=== PATIENT | male | born 1970 | race Caucasian/White ===

== ENCOUNTER 2020-02-18 20:40 | Emergency (ER) | payer OTHER, SELFPAY ==
[2020-02-18 20:41] VITALS: BP 150/103; PULSE 115; RESP 18; TEMP 35.9; O2SAT 99; BMI 36.6
--- NOTE | 2020-02-18 21:07 | CT_ITS ---
STUDY: CT SOFT TISSUE NECK WITH CONTRAST REASON FOR EXAM: Male, 49 years old. PAIN/SWELLING OVER RIGHT MASTOID PROCESS INTO NECK. NO KNOWN INJURY. MASTOIDITIS?? RADIATION DOSAGE (If Supplied By Facility): CTDIvol = ( 17.28 ) mGy, DLP = ( 587.23 ) mGycm TECHNIQUE: The patient was scanned in a multi-detector CT scanner. High resolution transaxial imaging was performed following intravenous administration of IV 75mL Isovue-370. Sagittal and coronal images were reconstructed. Individualized dose optimization techniques were used for this CT. COMPARISON: None. FINDINGS: Mild edema is present in the right ear anterior and posterior periauricular/external auditory canal soft tissues likely due to inflammation or possible cellulitis. No abscess is present. No cortical erosion or bony destruction is seen to suggest osteomyelitis. No suspicious process is seen. The bilateral mastoid air cells are clear as well as the middle ear. Normal bilateral parotid glands. Normal bilateral straight line press setter spaces. Normal bilateral parapharyngeal spaces. Normal bilateral carotid spaces. Normal bilateral sublingual and submandibular glands and spaces. Normal visualized nasopharynx. Normal retropharyngeal space. Normal perivertebral space. Normal visualized bilateral faucial tonsils. The visualized tongue, tongue base and oropharynx are normal. The visualized cervical lymph nodes (levels I-) are within normal size limits, and maintain normal morphology. There is no demonstrated solid or cystic mass lesion. There is no abnormal contrast enhancement. Normal epiglottis, bilateral vallecula and hypopharynx. The pre-epiglottic and paraglottic adipose spaces are normal. Normal visualized bilateral piriform sinuses, aryepiglottic folds, vocal cords, and arytenoid-cricoid articulations. Normal subglottic trachea. Normal bilateral lobes of the thyroid gland. Normal visualized pulmonary apices. Normal visualized paranasal sinuses. There is multilevel degenerative changes of the cervical spine. CT/Soft Tissue Neck WITH Contrast IMPRESSION: Mild edema is present in the right ear anterior and posterior periauricular/external auditory canal soft tissues likely due to inflammation or possible cellulitis. No abscess is present. No cortical erosion or bony destruction is seen to suggest osteomyelitis. Electronically Signed: Nestor Cesar MD at 22:37 EST , Service support ,
[2020-02-18] MEDS: Ketorolac 30 MG/ML Syringe IV (21:27)
--- NOTE | 2020-02-18 21:31 | ED.VIS.GEN ---
History of Present Illness Chief Complaint: General Illness Informant: Patient Narrative: Patient is a 49-year-old male with a past medical history of hypertension who presents to the emergency department for posterior head pain. This initially started yesterday and progressively got worse into today. At baseline to 5 out of 10 but shoots up to an 8 or 9 occasionally. He denies ever having this happen before in the past. He states that it does feel like it started to go toward his ear. Denies any ringing in his ears or hearing loss. No ear discharge. He feels like it is swollen over the area of the pain. He feeling is starting to go down the back of his neck on the right side as well. He denies any chest pain or shortness of breath. No fevers or chills. No abdominal pain or nausea/vomiting. He denies being a diabetic. No vision changes. No significant headache. Past Medical History - Allergies and Home Meds Allergies/Adverse Reactions: Allergies No Known Allergies Allergy (Verified 02/18/20 20:44) Primary Care Physician: Marlon Carlson MD [Primary Care Provider] - Prior records reviewed: Yes Past Medical History: - - Hypertension Surgical History: no surgical history Smoking Status: Never smoker Review of Systems All systems negative except as indicated General: Denies: Chills, Fever, Sweats Eyes: Denies: Visual changes - bilaterally, Diplopia ENT: Denies: Rhinorrhea, Sore throat Cardiovascular: Denies: Chest pain, Palpitations Respiratory: Denies: Dyspnea, Cough, Dyspnea on exertion Gastrointestinal: Denies: Abdominal pain, Nausea, Vomiting, Diarrhea Genitourinary: Denies: Dysuria, Hematuria, Frequency Musculoskeletal: Reports: Neck pain. Denies: Back pain, Extremity Pain Skin: Denies: Rash, Wounds Neurological: Denies: Weakness, Numbness Physical Exam Vital Signs/Narrative: Vital Signs Temp Pulse Resp BP Pulse Ox 02/18/20 20:41 96.6 F L 115 H 18 150/103 H 99 Inital Vital Signs reviewed: Yes General: Well nourished, Well developed, No Acute Distress Head: Normocephalic, Atraumatic, - - There is tenderness over the right mastoid process. Some overlying bogginess. No obvious overlying cellulitis. No abscess appreciable. Eyes: Perrl, EOMI ENT: Moist mucous membranes, No rhinorrhea, TM's clear, - - Normal external ear canal. Neck: Supple, Nontender, No lymphadenopathy Cardiovascular: Regular rate, Regular rhythm, No murmurs Respiratory: No distress, CTA bilaterally, Chest nontender Abdomen: Soft, Nontender, Nondistended Back: Nontender, Normal Inspection Extremities: Nontender, No edema Skin: Normal color, No rash Neurological: Alert, Oriented x3, Cranial nerves II-XII grossly intact, Normal Strength, Normal Sensation Psychological: Normal affect, Normal Mood Diagnostic/Tx/Re-eval - Medical Decision Making Patient presents to the ED for pain over the right mastoid process. He does have significant tenderness on physical exam. No obvious evidence of infection on external skin. He has a normal external and anterior normal ear appearance. Nondiabetic. Will check basic lab work as well as CT scan of the soft tissues surrounding the area to make sure there is no mastoiditis or underlying infection. Even a dose of Toradol for symptomatic relief. Patient's lab work showed very minimal elevation of his white blood cell count. He does not meet SIRS criteria. He was mildly tachycardic upon arrival although his heart rate seemed to return to normal my examination. He does not appear in any acute distress. CT scans show some soft tissue inflammation around his area of tenderness. Will treat as a cellulitis. No evidence of bony abnormality. Will treat this with antibiotics. Is given first dose here in the emergency department and sent home with oral antibiotics. Strict return precautions were discussed with him including any worsening of his swelling, ear pain or hearing abnormalities, developing fever/chills. He understands and is agreeable to plan. He otherwise is to follow-up with his PCP. Discharged home in stable condition. All questions answered. ED Disposition - Plan for ED Patient: Disposition: Home or Assisted Living Diagnosis: Cellulitis of scalp Instructions: ED Cellulitis Prescriptions: Smz/Tmp Ds [Bactrim Ds] 1 tab PO BID 7 Days #14 tab Prescription Printed Cephalexin [Keflex] 500 mg PO Q6 7 Days #28 cap Prescription Printed Referrals: Marlon Carlson MD [Primary Care Provider] - 3-5 Days
[2020-02-18 21:39] LABS: Absolute Lymphocyte Count 2.54 X10^3/uL (0.83-4.51); Absolute Neutrophil Count 7.8 X10^3/uL (2.0-7.7); Basophil# 0.06 X10^3/uL; Basophil% 0.5 % (0-1); Eosinophil# 0.15 X10^3/uL; Eosinophils% 1.3 % (0-5); Hematocrit 47.6 % (40-54); Hemoglobin 16.1 g/dL (13.0-16.5); Lymphocyte # 2.54 X10^3/ul (4.0); Lymphocyte % 21.9 % (19-41); Mean Corp Hgb Conc 33.8 g/dL (32-36); Mean Corpuscular Hgb 30.4 pg (27.0-32.0); Mean Platelet Vol. 8.9 fl (6.2-12.0); Monocyte% 8.6 % (0-10); NRBC Flagged by Analyzer 0 % (0-5); Neutrophil # 7.81 X10^3/uL (2.7-7.7); Neutrophil % 67.4 % (47-70); Platelet Count 412 K/mm3 (150-450); RBC Distribution Width CV 12.6 % (11.6-14.6); RBC Distribution Width SD 41.5 fl (35.1-43.9); Red Blood Count 5.29 M/mm3 (4.6-6.2); White Blood Count 11.6 K/mm3 (4.4-11.0)
[2020-02-18 21:51] LABS: Anion Gap 3 (5-15); BUN 18 mg/dL (7-18); BUN/Creat Ratio 16.7 RATIO (10-20); Calcium,Total 8.6 mg/dL (8.5-10.1); Chloride 105 mmol/L (98-107); Creatinine, Serum 1.08 mg/dL (0.70-1.30); EST Glomerular Filtration Rate 76 mL/min (>60); Est Glom Filt Rate - Afr Amer 93 mL/min (>60); Estimated Creatinine Clearance 86.18 ml/min; Glucose 110 mg/dL (74-106); Potassium 3.8 mmol/L (3.5-5.1); Sodium Level 139 mmol/L (136-145)
[2020-02-18] MEDS: Cephalexin 250 MG Capsule 500 MG PO (22:44)
[2020-02-18] MEDS: Smz/Tmp Ds Tablet 1 TABLET PO (22:45)
== END 2020-02-18 23:00 | disposition home or self-care (01) ==
PROVIDERS: Emergency Provider Emergency Medicine; PCP Family Medicine
DX: L03.811 Cellulitis of head [any part, except face] (principal); I10 Essential (primary) hypertension
CPT/HCPCS: 70491; 80048; 85025; 96374; 99284; Q9967; A4216

== ENCOUNTER 2020-06-20 15:00 | Emergency (ER) | payer OTHER, SELFPAY ==
[2020-06-20 15:01] VITALS: BP 132/104; PULSE 112; RESP 16; TEMP 36.7; O2SAT 100; BMI 36.6
--- NOTE | 2020-06-20 15:26 | EKG12_ITS ---
Test Reason : GENERAL Blood Pressure : / mmHG Vent. Rate : 104 BPM Atrial Rate : 104 BPM P-R Int : 150 ms QRS Dur : 096 ms QT Int : 332 ms P-R-T Axes : 028 -15 012 degrees QTc Int : 436 ms Sinus tachycardia Otherwise normal ECG Confirmed by AZAR VÁSQUEZ, TOBY ([id number]), magazine editor NILSA DESIR ([id number]) on 06/24/2020 8:30:59 AM Referred By: Confirmed By:TOBY ASKEW MD
--- NOTE | 2020-06-20 15:29 | ED.DCSUM_ITS ---
History of Present Illness Chief Complaint: General Illness Informant: Patient Narrative: 49-year-old male presenting with fatigue mild nausea metallic taste in mouth and chest tightness. He tells me that 1 week ago he used a Ortho ground clear spray. He did not ingest any of that that he is aware of. He denied any skin irritation or eye symptoms. He states that shortly after using it he noticed that he had a metallic taste in his mouth. Since then he developed his other symptoms. He denies any exertional components. He was down in [place] [employer] today on his way back decided it was time to come and be seen because he just does not feel right. He denies any fevers. He notes he is tested for Covid twice weekly for his job. These have all been negative. He denies any URI symptoms. Normal bowel movement yesterday but states that towards the end of the day his stools were looser than normal. Past Medical History - Allergies and Home Meds Allergies/Adverse Reactions: Allergies No Known Allergies Allergy (Verified 06/20/20 15:01) Primary Care Physician: Marlon Carlson MD [Primary Care Provider] - Past Medical History: None Surgical History: no surgical history Smoking Status: Never smoker Drugs: None Review of Systems General: Reports: Malaise. Denies: Chills, Fever, Sweats Eyes: Denies: Visual changes - bilaterally, Diplopia ENT: Reports: - - Metallic taste in mouth. Denies: Rhinorrhea, Sore throat Cardiovascular: Reports: Chest pain - Chest tightness, Palpitations Respiratory: Denies: Dyspnea, Cough, Dyspnea on exertion Gastrointestinal: Reports: Nausea. Denies: Abdominal pain, Vomiting, Diarrhea, Melena, Hematochezia Genitourinary: Denies: Dysuria, Hematuria, Frequency Musculoskeletal: Denies: Back pain, Extremity Pain Skin: Denies: Rash, Wounds Neurological: Denies: Headache, Weakness, Numbness Physical Exam Vital Signs/Narrative: Vital Signs Temp Pulse Resp BP Pulse Ox 06/20/20 15:01 98.0 F 112 H 16 132/104 H 100 Inital Vital Signs reviewed: Yes General: Well nourished, Well developed, No Acute Distress Head: Normocephalic, Atraumatic Eyes: Perrl, EOMI ENT: Moist mucous membranes, No rhinorrhea Neck: Supple, Nontender Cardiovascular: Regular rate, No murmurs, Tachycardia Respiratory: No distress, CTA bilaterally, Chest nontender Abdomen: Soft, Nontender, Nondistended, Normal bowel sounds Back: Nontender, Normal Inspection Extremities: Nontender, No edema Skin: Normal color, No rash Neurological: Alert, Oriented x3, Cranial nerves II-XII grossly intact, Normal Strength, Normal Sensation Psychological: Normal affect, Normal Mood Diagnostic/Tx/Re-eval Clinical Impression(s) from Imaging Studies Chest X-Ray 06/20/20 15:36 IMPRESSION: No acute radiographic abnormalities. Electronically Signed: Abilio Ortiz MD at 16:14 EDT Tel , Service support , Laboratory Last Values WBC 10.0 K/mm3 (4.4-11.0) 06/20/20 15:30 RBC 5.90 M/mm3 (4.6-6.2) 06/20/20 15:30 Hgb 17.4 g/dL (13.0-16.5) H 06/20/20 15:30 Hct 52.9 % (40-54) 06/20/20 15:30 MCV 89.7 fL (80-94) 06/20/20 15:30 MCH 29.5 pg (27.0-32.0) 06/20/20 15:30 MCHC 32.9 g/dL (32-36) 06/20/20 15:30 RDW Std Deviation 41.9 fl (35.1-43.9) 06/20/20 15:30 RDW Coeff of Danilo 12.7 % (11.6-14.6) 06/20/20 15:30 Plt Count 449 K/mm3 (150-450) 06/20/20 15:30 MPV 8.9 fl (6.2-12.0) 06/20/20 15:30 Immature Gran % (Auto) 0.200 % (0.0-0.9) 06/20/20 15:30 Neut % (Auto) 73.9 % (47-70) H 06/20/20 15:30 Lymph % (Auto) 16.4 % (19-41) L 06/20/20 15:30 Callahan % (Auto) 8.4 % (0-10) 06/20/20 15:30 Eos % (Auto) 0.6 % (0-5) 06/20/20 15:30 Baso % (Auto) 0.5 % (0-1) 06/20/20 15:30 Absolute Neuts (auto) 7.4 X10^3/uL (2.0-7.7) 06/20/20 15:30 Absolute Lymphs (auto) 1.63 X10^3/uL (0.83-4.51) 06/20/20 15:30 Nucleated RBC % 0 % (0-5) 06/20/20 15:30 D-Dimer Quant (PE/DVT) 0.34 FEU/ug/m (0.27-0.49) 06/20/20 15:30 Sodium 139 mmol/L (136-145) 06/20/20 15:30 Potassium 3.2 mmol/L (3.5-5.1) L 06/20/20 15:30 Chloride 103 mmol/L (98-107) 06/20/20 15:30 Carbon Dioxide 31.0 mmol/L (21.0-32.0) 06/20/20 15:30 Anion Gap 5 (5-15) 06/20/20 15:30 BUN 13 mg/dL (7-18) 06/20/20 15:30 Creatinine 1.12 mg/dL (0.70-1.30) 06/20/20 15:30 Estim Creat Clear Calc 83.11 ml/min 06/20/20 15:30 Est GFR (MDRD) Af Amer 89 mL/min (>60) 06/20/20 15:30 Est GFR (MDRD) Non-Af 73 mL/min (>60) 06/20/20 15:30 BUN/Creatinine Ratio 11.6 RATIO (10-20) 06/20/20 15:30 Glucose 87 mg/dL (74-106) 06/20/20 15:30 Calcium 9.1 mg/dL (8.5-10.1) 06/20/20 15:30 Magnesium 2.2 mg/dL (1.6-2.6) 06/20/20 15:30 Total Bilirubin 0.90 mg/dL (0.20-1.00) 06/20/20 15:30 AST 15 U/L (15-37) 06/20/20 15:30 ALT 37 U/L (16-61) 06/20/20 15:30 Alkaline Phosphatase 134 U/L (45-117) H 06/20/20 15:30 Troponin I < 0.015 ng/mL (<0.045) 06/20/20 15:30 Total Protein 8.0 g/dL (6.4-8.2) 06/20/20 15:30 Albumin 3.9 g/dL (3.2-5.0) 06/20/20 15:30 Globulin 4.1 g/dL (2.2-4.2) 06/20/20 15:30 Albumin/Globulin Ratio 1.0 RATIO (0.9-2.4) 06/20/20 15:30 Lipase 99 U/L (73-393) 06/20/20 15:30 - EKG Initial EKG Interpretation: Sinus Tachycardia - EKG demonstrates a sinus tachycardia at a rate of 104. No concerning features of ACS or ectopy noted - Medical Decision Making EKG shows sinus tachycardia has been right around 100 on the monitor. Troponin D-dimer negative. Potassium 3.2. Hemoglobin slightly elevated 17 which I suspect is due to a mild degree of dehydration from mowing the lawn today. I do not see anything significantly concerning on his exam or his labs. I do not suspect poisoning from the materials he uses it was over a week ago and according to the safety sheet online is not on organophosphate chemicals do not have any significant systemic effects. To rest hydrate increase potassium in his diet and follow-up with his doctor next week if symptoms have not resolved ED Disposition - Plan for ED Patient: Disposition: Home or Assisted Living Diagnosis: Dysgeusia, Tachycardia Referrals: Marlon Carlson MD [Primary Care Provider] - 3-5 Days if not improving
--- NOTE | 2020-06-20 15:36 | RAD_ITS ---
INDICATION: chest pain EXAMINATION/TECHNIQUE: X-RAY - XR Chest 1 View COMPARISON: None. FINDINGS: The lungs are clear. The cardiomediastinal silhouette is unremarkable. No pleural effusion or pneumothorax. No acute osseous abnormalities. RAD/Chest 1 View (Portable) IMPRESSION: No acute radiographic abnormalities. Electronically Signed: Abilio Ortiz MD at 16:14 EDT Tel , Service support ,
[2020-06-20 15:47] LABS: Absolute Lymphocyte Count 1.63 X10^3/uL (0.83-4.51); Absolute Neutrophil Count 7.4 X10^3/uL (2.0-7.7); Basophil# 0.05 X10^3/uL; Basophil% 0.5 % (0-1); Eosinophil# 0.06 X10^3/uL; Eosinophils% 0.6 % (0-5); Hematocrit 52.9 % (40-54); Hemoglobin 17.4 g/dL (13.0-16.5); Lymphocyte # 1.63 X10^3/ul (0.83-4.51); Lymphocyte % 16.4 % (19-41); Mean Corp Hgb Conc 32.9 g/dL (32-36); Mean Corpuscular Hgb 29.5 pg (27.0-32.0); Mean Corpuscular Volume 89.7 fL (80-94); Mean Platelet Vol. 8.9 fl (6.2-12.0); Monocyte# 0.84 X10^3/uL; Monocyte% 8.4 % (0-10); NRBC Flagged by Analyzer 0 % (0-5); Neutrophil # 7.35 X10^3/uL (2.7-7.7); Neutrophil % 73.9 % (47-70); Platelet Count 449 K/mm3 (150-450); RBC Distribution Width CV 12.7 % (11.6-14.6); RBC Distribution Width SD 41.9 fl (35.1-43.9)
[2020-06-20 16:01] LABS: D-Dimer Quantitative (DVT/PE) 0.34 FEU/ug/m (0.27-0.49)
[2020-06-20 16:07] LABS: AST(SGOT) 15 U/L (15-37); Alanine Aminotransfer ALT/SGPT 37 U/L (16-61); Albumin, Serum 3.9 g/dL (3.2-5.0); Alkaline Phosphatase 134 U/L (45-117); Anion Gap 5 (5-15); BUN 13 mg/dL (7-18); BUN/Creat Ratio 11.6 RATIO (10-20); Calcium,Total 9.1 mg/dL (8.5-10.1); Chloride 103 mmol/L (98-107); Creatinine, Serum 1.12 mg/dL (0.70-1.30); EST Glomerular Filtration Rate 73 mL/min (>60); Est Glom Filt Rate - Afr Amer 89 mL/min (>60); Estimated Creatinine Clearance 83.11 ml/min; Globulin 4.1 g/dL (2.2-4.2); Glucose 87 mg/dL (74-106); Lipase 99 U/L (73-393); Magnesium 2.2 mg/dL (1.6-2.6); Potassium 3.2 mmol/L (3.5-5.1); Sodium Level 139 mmol/L (136-145)
[2020-06-20 16:29] VITALS: BP 128/95; PULSE 104; RESP 18; O2SAT 98
== END 2020-06-20 16:30 | disposition home or self-care (01) ==
PROVIDERS: Emergency Provider Emergency Medicine; PCP Family Medicine
DX: R43.2 Parageusia (principal); R00.0 Tachycardia, unspecified; R11.0 Nausea; R07.9 Chest pain, unspecified
CPT/HCPCS: 71045; 80053; 83690; 83735; 84484; 85025; 85379; 87426; 93005; 99283; A4216

== ENCOUNTER → 2020-12-14 | Outpatient (CLI) | payer OTHER, SELFPAY | END | disposition home or self-care (01) | LOC: LABSPEC 16:19 | PROVIDERS: PCP Family Medicine; Visit Provider Family Medicine | DX: Z03.818 Encounter for observation for suspected exposure to other biological agents ruled out (principal) | CPT/HCPCS: 87635; U0005; U0003 ==

== ENCOUNTER 2023-03-06 19:04 | Emergency (ER) | payer OTHER, SELFPAY ==
[2023-03-06 19:05] VITALS: BP 157/113; PULSE 147; RESP 18; TEMP 36.4; O2SAT 97; BMI 38.3
--- NOTE | 2023-03-06 19:08 | EKG12_ITS ---
Test Reason : CP Blood Pressure : / mmHG Vent. Rate : 136 BPM Atrial Rate : 136 BPM P-R Int : 150 ms QRS Dur : 086 ms QT Int : 274 ms P-R-T Axes : 025 -58 057 degrees QTc Int : 412 ms Sinus tachycardia Left anterior fascicular block Cannot rule out Inferior infarct (masked by fascicular block?) , age undetermined Abnormal ECG Confirmed by OLINDA VÁSQUEZ, ODIN ([id number]), food expeditor NILSA DESIR ([id number]) on 03/07/2023 10:09:47 AM Referred By: Confirmed By:ODIN PRAKASH MD
--- NOTE | 2023-03-06 19:20 | RAD_ITS ---
STUDY: X-RAY CHEST REASON FOR EXAM: Male, 52 years old. chest pain TECHNIQUE: Single AP portable view of the chest. COMPARISON: 06/20/2020. FINDINGS: The lungs are clear and expanded. There is no demonstrated pleural abnormality. Normal size heart. Normal mediastinum and christiana. Normal visualized pulmonary arteries. There is atherosclerotic calcification of the aortic arch with tortuosity. There are diffuse degenerative changes of the visualized thoracic spine. Normal visualized ribs, clavicles, and shoulders. There is no demonstrated abnormality of the visualized soft tissue structures of the upper abdomen. RAD/Chest 1 View (Portable) IMPRESSION: No acute cardiopulmonary disease, stable study in the interval. Electronically Signed: Hanna Guerrero MD at 19:36 EST ,
[2023-03-06 19:24] LABS: Absolute Lymphocyte Count 1.36 X10^3/uL (0.83-4.51); Absolute Neutrophil Count 4.9 X10^3/uL (2.0-7.7); Basophil# 0.08 X10^3/uL; Basophil% 1.1 % (0-1); Eosinophil# 0.07 X10^3/uL; Lymphocyte # 1.36 X10^3/ul (0.83-4.51); Lymphocyte % 18.5 % (19-41); Mean Corp Hgb Conc 33.3 g/dL (32-36); Mean Corpuscular Volume 87.1 fL (80-94); Mean Platelet Vol. 8.7 fl (6.2-12.0); Monocyte% 12.2 % (0-10); NRBC Flagged by Analyzer 0 % (0-5); Neutrophil # 4.94 X10^3/uL (2.7-7.7); Neutrophil % 67.1 % (47-70); Platelet Count 325 K/mm3 (150-450); RBC Distribution Width SD 41.1 fl (35.1-43.9); Red Blood Count 6.41 M/mm3 (4.6-6.2); White Blood Count 7.4 K/mm3 (4.4-11.0)
[2023-03-06 19:42] LABS: Anion Gap 4 (5-15); BUN 17 mg/dL (7-18); BUN/Creat Ratio 13.1 RATIO (10-20); Calcium,Total 10.2 mg/dL (8.5-10.1); Chloride 100 mmol/L (98-107); EST Glomerular Filtration Rate 61 mL/min (>60); Est Glom Filt Rate - Afr Amer 74 mL/min (>60); Estimated Creatinine Clearance 69.19 ml/min; Glucose 121 mg/dL (74-106); Potassium 3.9 mmol/L (3.5-5.1); Sodium Level 135 mmol/L (136-145); Troponin-I HS (w/2H Reflex) 4 pg/mL (3.0-78.0)
[2023-03-06 19:51] LABS: Hematocrit 55.8 % (40-54)
[2023-03-06 19:53] LABS: Differential Indicated SCAN CRITERIA MET; Hemoglobin 18.6 g/dL (13.0-16.5)
[2023-03-06 20:05] VITALS: TEMP 38.4
[2023-03-06 20:05] LABS: Anisocytosis RARE; Macrocytosis RARE; Platelet Estimate ADEQUATE (ADEQ); Red Cell Morphology N CHROM NORMAL (NORM C&C)
--- OUTSIDE RECORDS SUMMARY | 2023-03-06 20:05 | XMS RPT_ITS | CCD ---
Author Name Unknown Address [address] [place] [address] Organization [facility] Care Team Providers Care Educational Technology Specialist Name Role Phone Lukasz Vickers MD Primary Care Provider LUKASZ VICKERS Primary Care Unavailable DHARMESH RICHARDS Attending Unavailable LUKASZ VICKERS Primary Care Unavailable LUKASZ VICKERS Primary Care Unavailable LUKASZ VICKERS Primary Care Unavailable DHARMESH RICHARDS Attending Unavailable BRAULIO BROOKE Attending Unavailable LUKASZ VICKERS Primary Care Unavailable BRAULIO BROOKE Attending Unavailable LUKASZ VICKERS Primary Care Unavailable DHARMESH RICHARDS Referring Unavailable Allergies Allergy Classification Reported Allergen(s) Allergy Type Date of Onset Reaction(s) Facility (12 sources) Acetaminophen / HYDROcodone; Translations: [HYDROCODONE-ACETA MINOPHEN] Drug Allergy 03-31-2011 GI Upset [facility] Medications Current Medications Medication Drug Class(es) Dates Sig (Normalized) Sig (Original) amoxicillin 875 mg / clavulanate 125 mg oral tablet (2 sources) Penicillin-class Antibacterial Start: 05-15-2022 End: 05-25-2022 take 1 tablet by mouth twice daily amoxicillin-clav ulanic acid (AUGMENTIN) 875-125 mg per tablet Take 1 tablet by mouth twice daily for 10 days. 20 tablet 0 05/15/2022 05/25/2022 Active Completed/Discontinued Medications Medication Drug Class(es) Dates Sig (Normalized) Sig (Original) meloxicam 15 mg oral tablet (2 sources) Nonsteroidal Anti-inflammatory Drug Start: 09-24-2021 End: 11-26-2021 take 1 tablet by mouth once daily at mealtime meloxicam (MOBIC) 15 mg tablet Indications: Cervical radiculopathy , Bilateral hip pain Take 1 tablet by mouth once daily. With food. 30 tablet 3 09/24/2021 11/26/2021 Discontinued (Course of therapy completed) Problems Active Problems Problem Classification Problem Date Documented Date Episodic/Chronic Disorders of lipid metabolism (12 sources) Hyperlipidemia; Translations: [Hyperlipidemia, unspecified] Onset: 06-30-2014 06-30-2014 Chronic Essential hypertension (16 sources) Essential hypertension; Translations: [Essential (primary) hypertension] Onset: 06-23-2014 Chronic Immunizations and screening for infectious disease (4 sources) Patient encounter status; Translations: [Encounter for immunization] Episodic Other male genital disorders (6 sources) Secondary erectile dysfunction; Translations: [Male erectile dysfunction, unspecified] Chronic Other male genital disorders (1 source) Male erectile dysfunction, unspecified; Translations: [ED (erectile dysfunction) of organic origin] Onset: 05-23-2022 Chronic Other non-traumatic joint disorders (2 sources) Hip pain; Translations: [Pain in right hip] Episodic Other non-traumatic joint disorders (1 source) Bilateral chronic pain of upper limbs; Translations: [Pain in right shoulder] Episodic Other nutritional; endocrine; and metabolic disorders (1 source) Obese class II; Translations: [Obesity, unspecified] Chronic Other nutritional; endocrine; and metabolic disorders (11 sources) Constitutional obesity; Translations: [Other obesity] Onset: 03-23-2015 03-23-2015 Chronic Other upper respiratory infections (1 source) Chronic sinusitis; Translations: [Chronic sinusitis, unspecified] Chronic Other upper respiratory infections (2 sources) Acute maxillary sinusitis; Translations: [Acute maxillary sinusitis, unspecified] Episodic Otitis media and related conditions (1 source) Dysfunction of bilateral eustachian tubes; Translations: [Other specified disorders of Eustachian tube, bilateral] Episodic Spondylosis; intervertebral disc disorders; other back problems (2 sources) Cervical radiculopathy; Translations: [Radiculopathy, cervical region] Episodic Past or Other Problems Problem Classification Problem Date Documented Da te Episodic/Chronic Calculus of urinary tract (11 sources) Kidney stone; Translations: [Calculus of kidney] Onset: 03-31-2011 03-31-2011 Episodic Diabetes mellitus without complication (12 sources) Increased glucose level; Translations: [Other abnormal glucose] Onset: 09-24-2021 Episodic Results Test Name Value Interpretation Reference Range Facil ity Vital Signs Date Time Vital Sign Value Performing Clinician [place] 06-07-2022 08:05-0400 Body weight 126.1 kg Braulio Brooke PA-C Work Phone: [facility] 05-31-2022 09:17-0400 Body height 180.3 cm Braulio Brooke PA-C Work Phone: [facility] 05-31-2022 09:17-0400 Body temperature 98.01 [degF] Braulio Brooke PA-C Work Phone: [facility] 05-31-2022 09:17-0400 Body weight 126.1 kg Braulio Brooke PA-C Work Phone: [facility] 05-31-2022 09:17-0400 Diastolic blood pressure 88 mm[Hg] Braulio Brooke PA-C Work Phone: [facility] 05-31-2022 09:17-0400 Heart rate 100 /min Braulio Brooke PA-C Work Phone: [facility] 05-31-2022 09:17-0400 Respiratory rate 12 /min Braulio Brooke PA-C Work Phone: [facility] 05-31-2022 09:17-0400 SaO2% (BldA) [Mass fraction] 100 % Braulio Brooke PA-C Work Phone: [facility] 05-31-2022 09:17-0400 Systolic blood pressure 140 mm[Hg] Braulio Brooke PA-C Work Phone: [facility] 05-23-2022 11:30-0400 Diastolic blood pressure 78 mm[Hg] Dharmesh Adal SUPERVISOR DENTAL LABORATORY.COMPUTER PROGRAMMING PROFESSOR Work Phone: [facility] 05-23-2022 11:30-0400 Systolic blood pressure 118 mm[Hg] Dharmesh Adal SUPERVISOR DENTAL LABORATORY.COMPUTER PROGRAMMING PROFESSOR Work Phone: [facility] 05-23-2022 11:09-0400 Body temperature 97.81 [degF] Dharmesh Adal SUPERVISOR DENTAL LABORATORY.COMPUTER PROGRAMMING PROFESSOR Work Phone: [facility] 05-23-2022 11:09-0400 Body weight 124.19 kg Dharmesh Adal SUPERVISOR DENTAL LABORATORY.COMPUTER PROGRAMMING PROFESSOR Work Phone: [facility] 05-23-2022 11:09-0400 Heart rate 96 /min Dharmesh Adal SUPERVISOR DENTAL LABORATORY.COMPUTER PROGRAMMING PROFESSOR Work Phone: [facility] 05-23-2022 11:09-0400 Respiratory rate 16 /min Dharmesh Adal SUPERVISOR DENTAL LABORATORY.COMPUTER PROGRAMMING PROFESSOR Work Phone: [facility] 05-15-2022 08:31-0400 Body temperature 97.81 [degF] Fco Pendlebury SUPERVISOR DENTAL LABORATORY.COMPUTER PROGRAMMING PROFESSOR Work Phone: [facility] 05-15-2022 08:31-0400 Body weight 126.64 kg Fco Toney SUPERVISOR DENTAL LABORATORY.COMPUTER PROGRAMMING PROFESSOR Work Phone: [facility] 05-15-2022 08:31-0400 Diastolic blood pressure 68 mm[Hg] Fco Pendlebury SUPERVISOR DENTAL LABORATORY.COMPUTER PROGRAMMING PROFESSOR Work Phone: [facility] 05-15-2022 08:31-0400 Heart rate 96 /min Fco Pendlebury SUPERVISOR DENTAL LABORATORY.COMPUTER PROGRAMMING PROFESSOR Work Phone: [facility] 05-15-2022 08:31-0400 Respiratory rate 18 /min Fco Pendlejacobo SUPERVISOR DENTAL LABORATORY.COMPUTER PROGRAMMING PROFESSOR Work Phone: [facility] 05-15-2022 08:31-0400 SaO2% (BldA) [Mass fraction] 97 % Fco Pendlejacobo SUPERVISOR DENTAL LABORATORY.COMPUTER PROGRAMMING PROFESSOR Work Phone: [facility] 05-15-2022 08:31-0400 Systolic blood pressure 122 mm[Hg] Fco Pendlejacobo SUPERVISOR DENTAL LABORATORY.COMPUTER PROGRAMMING PROFESSOR Work Phone: [facility] 03-18-2022 11:17-0500 Body temperature 98.4 [degF] Moustapha Henry SUPERVISOR DENTAL LABORATORY.COMPUTER PROGRAMMING PROFESSOR Work Phone: [facility] 03-18-2022 11:17-0500 Body weight 123.56 kg Moustapha Henry SUPERVISOR DENTAL LABORATORY.COMPUTER PROGRAMMING PROFESSOR Work Phone: [facility] 03-18-2022 11:17-0500 Diastolic blood pressure 80 mm[Hg] Moustapha Henry SUPERVISOR DENTAL LABORATORY.COMPUTER PROGRAMMING PROFESSOR Work Phone: [facility] 03-18-2022 11:17-0500 Heart rate 127 /min Moustapha Henry SUPERVISOR DENTAL LABORATORY.COMPUTER PROGRAMMING PROFESSOR Work Phone: [facility] 03-18-2022 11:17-0500 Respiratory rate 18 /min Moustapha Henry SUPERVISOR DENTAL LABORATORY.COMPUTER PROGRAMMING PROFESSOR Work Phone: [facility] 03-18-2022 11:17-0500 SaO2% (BldA) [Mass fraction] 98 % Moustapha Henry SUPERVISOR DENTAL LABORATORY.COMPUTER PROGRAMMING PROFESSOR Work Phone: [facility] 03-18-2022 11:17-0500 Systolic blood pressure 124 mm[Hg] Moustapha Henry SUPERVISOR DENTAL LABORATORY.COMPUTER PROGRAMMING PROFESSOR Work Phone: [facility] 11-26-2021 12:13-0400 Diastolic blood pressure 76 mm[Hg] Dharmesh Adal SUPERVISOR DENTAL LABORATORY.COMPUTER PROGRAMMING PROFESSOR Work Phone: [facility] 11-26-2021 12:13-0400 Systolic blood pressure 110 mm[Hg] Dharmehs Adal SUPERVISOR DENTAL LABORATORY.COMPUTER PROGRAMMING PROFESSOR Work Phone: [facility] 11-26-2021 12:03-0400 Body temperature 97.81 [degF] Dharmesh Adal SUPERVISOR DENTAL LABORATORY.COMPUTER PROGRAMMING PROFESSOR Work Phone: [facility] 11-26-2021 12:03-0400 Body weight 119.11 kg Dharmesh Adal SUPERVISOR DENTAL LABORATORY.COMPUTER PROGRAMMING PROFESSOR Work Phone: [facility] 11-26-2021 12:03-0400 Heart rate 84 /min Dharmesh Adal SUPERVISOR DENTAL LABORATORY.COMPUTER PROGRAMMING PROFESSOR Work Phone: [facility] 11-26-2021 12:03-0400 Respiratory rate 16 /min Dharmesh Adal SUPERVISOR DENTAL LABORATORY.COMPUTER PROGRAMMING PROFESSOR Work Phone: [facility] 09-24-2021 12:13-0400 Body height 180.3 cm Dharmesh Richards SUPERVISOR DENTAL LABORATORY.COMPUTER PROGRAMMING PROFESSOR Work Phone: [facility] 09-24-2021 12:13-0400 Body temperature 97.59 [degF] Dharmesh Richards APRN.CNP Work Phone: [facility] 09-24-2021 12:13-0400 Body weight 119.3 kg Dharmesh Richards APRN.CNP Work Phone: [facility] 09-24-2021 12:13-0400 Diastolic blood pressure 88 mm[Hg] Dharmesh Richards APRN.COMPUTER PROGRAMMING PROFESSOR Work Phone: [facility] 09-24-2021 12:13-0400 Heart rate 86 /min Dharmesh Richards APRN.COMPUTER PROGRAMMING PROFESSOR Work Phone: [facility] 09-24-2021 12:13-0400 Respiratory rate 16 /min Dharmesh Richards APRN.CNP Work Phone: [facility] 09-24-2021 12:13-0400 Systolic blood pressure 136 mm[Hg] Dharmesh Richards APRN.COMPUTER PROGRAMMING PROFESSOR Work Phone: [facility] Encounters Encounter Date Encounter Type Care Provider Facility Start: 03-03-2023 End: 03-03-2023 ambulatory [facility] Facility:[facility] Start: 03-03-2023 Encounter for genera l adult medical examination without abnormal findings DHARMESH RICHARDS [facility] Start: 11-19-2022 Refill Dharmesh TO RN.DANITA Work Phone: [facility] Procedures Date Procedure Procedure Detail Performing Clinician Start: 09-24-2021 Adult depression screening assessment Dharmesh Richards APRN.CNP Work Phone: Start: 06-30-2018 Lipid 1996 panel - S dia or Plasma Dharmesh Richards APRN.CNP Work Phone: Plan of Treatment Date Care Activity Detail Author Start: 02-26-2025 Urine microalbumin profile [facility] Start: 10-25-2024 DIABETES SCREEN DIABETES SCREEN [facility] Start: 10-25-2024 Diabetes Screening Diabetes Screenin g [facility] Start: 07-01-2023 Lipid 1996 panel - S dia or Plasma Lipid Screening [facility] Start: 07-01-2023 LIPID SCREEN LIPID SCREEN [facility] Start: 05-24-2023 ANNUAL PCP TEAM MATERIALS INTERN SHALONDA DISEASE VISIT ANNUAL PCP TEAM CHRONIC DISEASE VISIT [facility] Start: 05-24-2023 BP CONTROLLED (<130/80) BP CONTROLLE D (<130/80) [facility] Start: 05-16-2023 BP CONTROLLED (<130/80) BP CONTROLLE D (<130/80) [facility] Start: 11-26-2022 ANNUAL PCP TEAM MATERIALS INTERN SHALONDA DISEASE VISIT ANNUAL PCP TEAM CHRONIC DISEASE VISIT [facility] Start: 11-26-2022 BP CONTROLLED (<130/80) BP CONTROLLE D (<130/80) [facility] Start: 11-26-2022 COLORECTAL CANCER SCREENING COLORECTAL CANCER SCREENING [facility] Start: 11-26-2022 FECAL OCCULT BLOOD FECAL OCCULT BLOO D [facility] Start: 10-28-2022 Influenza vaccination [facility] Start: 09-24-2022 Adult depression scr eening assessment DEPRESSION SCREENING [facility] Start: 09-24-2022 ANNUAL PCP TEAM MATERIALS INTERN SHALONDA DISEASE VISIT ANNUAL PCP TEAM CHRONIC DISEASE VISIT [facility] Start: 09-24-2022 BP CONTROLLED (<130/80) BP CONTROLLE D (<130/80) [facility] Start: 09-24-2022 COVID-19 VACCINE (#1) COVID-19 VACCI NE (#1) [facility] Immunizations Immunization Date Immunization Notes Care Provider Fa radha 11-26-2021 zoster vaccine recombinant Dharmesh Adal SUPERVISOR DENTAL LABORATORY.COMPUTER PROGRAMMING PROFESSOR Work Phone: [facility] 09-24-2021 zoster vaccine recombinant Dharmesh Adal SUPERVISOR DENTAL LABORATORY.COMPUTER PROGRAMMING PROFESSOR Work Phone: [facility] 01-10-2018 influenza virus vacc ine, unspecified formulation Dharmesh Adal SUPERVISOR DENTAL LABORATORY.COMPUTER PROGRAMMING PROFESSOR Work Phone: [facility] 02-26-2015 tetanus toxoid, redu manas diphtheria toxoid, and acellular pertussis vaccine, adsorbed Dharmesh Adal SUPERVISOR DENTAL LABORATORY.COMPUTER PROGRAMMING PROFESSOR Work Phone: [facility] Payers Date Payer Category Payer Private Health Insurance [id number] 2011 Private Health Insurance [employer] A ETNA CHOICE POS II [id number] 2011-Present [phone] [address] [place] [address] POS [id number] 2011 Private Health Insurance [id number] 2011 Private Health Insurance [id number] Social History Date Type Detail Facility Start: 02-16-2011 Tobacco smoking stat [facility] Never smoked tobacco [facility] Start: 09-24-2021 End: 05-23-2022 Alcohol intake Current drinker of alcohol (finding) [facility] Start: 06-23-2014 History SDOH Alcohol Comment minimal <1 per week. [facility] Start: 1970 Sex Assigned At Not on file [facility] Start: 09-14-2021 End: 11-26-2021 Exposure to SARS-CoV-2 (event) Not sure [facility] Start: 02-16-2011 Tobacco use and exposure Smokeless tobacco non-user [facility] Start: 05-31-2022 End: 06-07-2022 Alcohol intake Ex-drinker (finding) [facility] Start: 03-18-2022 End: 06-07-2022 History of Social function [facility] Work Phone: Start: 03-18-2022 End: 06-07-2022 Tobacco use panel [facility] Work Phone: Adult Depression Screening Assessment 0 [facility] Work Phone: Medical Equipment Procedure Code Equipment Code Equipment Origin al Text Equipment Identifier Dates Patch Ventralex St Sepra Sorbaflex 2.5in Medium [place] [employer] - [id number] Start: 04-01-2015 Clinical Notes 03-31-2011 to 03-03-2023 Telephone Encounter - Dharmesh Richards APRN.CNP - 11/21/2022 6:53 AM EDTTelephone Encounter - Greg Bentley LPN - 11/19/2022 10:45 AM Ronal Brooke PA-C - 06/07/2022 8:12 AM EDTPatient Instructions Note Date & Type Note Facility 03-03-2023 Note HNO ID: [id number] Author: DHARMESH RICHARDS APRN.COMPUTER PROGRAMMING PROFESSOR Service: ? Author Type: Nurse Practitioner Type: Progress Notes Filed: 03/03/2023 08:18 Note Text: Chief Complaint Patient presents with: Physical HPI Fransisco Devlin is a 52 year old male who presents here today for physical and other complaints. HTN: Patient is compliant with meds Yes Monitors bp at home: No. But was high last time he checked. Denies side effects: Yes. Chest pain: No. Dyspnea: No. Edema: No. Palpitations: No. Syncope: No. Headache: No. Dizziness: No. Depression Screening PHQ-2 Score 03/03/2023 0 Depression screening tool completed and reviewed. Based on score and interview, patient is not at risk for depression. Screening tool discussed with patient, and I recommended no further intervention at this time. Both ears itchy. White flaky chunks. No ear pain. Has a mass on the left side of his scapula. Present for 4 years. Previously assessed by myself. Noticed it has been slightly growing. Would like it removed. No discomfort. Past medical history, appointments, medications, allergies reviewed. Previous Medical History PAST MEDICAL HISTORY Diagnosis Date Erectile dysfunction of organic origin Essential hypertension Eustachian tube dysfunction, bilateral HTN (hypertension) Obesity Umbilical hernia 04/01/2015 Previous Surgical History PAST SURGICAL HISTORY Procedure Laterality Date ESOPHAGOGASTRODUODENOSCOPY TRANSORAL DIAGNOSTIC 09/09/2003 EGD HERNIA REPAIR W/MESH 04/01/15 NEPHROLITHOTOMY REMOVAL STAGE 1 Left 2011 EXTRACORPOREAL SHOCKWAVE LITHOTRIPSY UNILATERAL PAST SURGICAL HISTORY OF Left 04/2016 Labrum Tear and Bone spur removed. Dr. Olson at [facility] Family History FAMILY HISTORY Problem Relation Age of Onset Hypertension Father Hypertension Paternal Uncle Hypertension Paternal Aunt Diabetes Father diet controlled. Patient Allergies ALLERGIES Allergen Reactions Vicodin [Hydrocodon* GI Upset Weird dreams Current Medications Current Outpatient Medications on File Prior to Visit Medication Sig lisinopril-hydroCHLOROthiazide (ZESTORETIC) 10-12.5 mg per tablet Take 1 tablet by mouth once daily. Tadalafil (CIALIS) 10 mg tablet Take 1 tablet by mouth as needed (30-60 minutes prior to intercourse). No current facility-administered medications on file prior to visit. Social History Social History Tobacco Use Smoking status: Never Smokeless tobacco: Never Vaping Use Vaping Use: Never used Substance Use Topics Alcohol use: Not Currently Drug use: Never REVIEW OF SYSTEMS: as above Reviewed relevant PMHx, PSHx, Social Hx, current medications and allergies. EXAM: BP 150/100 Pulse 89 Temp 36.4 ?C (97.6 ?F) (Left Tympanic) Resp 16 Ht 179.1 cm (5' 10.5 ) Wt 124.5 kg (274 lb 6.4 oz) SpO2 98% BMI 38.82 kg/m? General Appearance: Well appearing, alert, in no acute distress, well-hydrated, well nourished.. 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 Head: Normocephalic, no masses, lesions, tenderness or abnormalities. Eyes: Anicteric sclera. Pupils are equally round and reactive to light. Extraocular movements are intact. . Ears: flaky, dry skin of the canal, TM normal. Nose/Sinuses: Nares normal, septum midline, mucosa normal, no drainage or sinus tenderness. Oropharynx: Lips, mucosa, and tongue normal, teeth and gums normal, oropharynx normal. Neck: Supple, no adenopathy; thyroid symmetric, normal size Lungs: Lungs clear to auscultation. No wheezing, rhonchi, rales.. Heart: RRR without murmur, gallop, or rubs. No ectopy. Abdomen: Normal abdominal exam, Abdomen soft, non-tender. Bowel sounds normal. No masses, organomegaly. Extremities: No deformities, edema Lymph Nodes: No cervical lymphadenopathy and No supraclavicular lymphadenopathy. Health Maintenance List Hepatitis B Vaccine(1 of 3 - 3-dose series) Never done Covid-19 Vaccine(1) Never done BP Controlled (<130/80) due on 09/24/2022 Influenza Vaccine(1) due on 10/28/2022 Colorectal Cancer Screening due on 11/26/2022 Depression Assessment due on 02/27/2023 Annual PCP Team Chronic Disease Visit due on 05/24/2023 Lipid Screening due on 07/01/2023 Diabetes Screening due on 10/25/2024 DTaP,Tdap,Td Vaccine(2 - Td or Tdap) due on 02/26/2025 Shingrix Vaccine Completed Hepatitis C Screening Addressed HIV Screening Discontinued Data reviewed None recently ASSESSMENT/PLAN: 1. Wellness examination - ICD9: V70.0, ICD10: Z00.00 (primary diagnosis) - Counseled on healthy diet and regular exercise - Colorectal cancer screening recommended - agrees to iFOBT testing - Follow up for annual exam in one year - FECAL OCCULT BLOOD TEST - COMP METABOLIC PANEL - HGB A1C - LIPID PANEL BASIC 2. Primary hypertension - ICD9: 401.9, ICD10: I10 - Uncontrolled - Increase lisinopril/hctz - Recommend home bloo (more content not included)... [facility] 11-21-2022 Miscellaneous Notes The following approved medication requests have been transmitted electronically. Requested Prescriptions Pending Prescriptions Disp Refills lisinopril-hydroCHLOROthiazide (ZESTORETIC) 10-12.5 mg per tablet 90 tablet 1 Sig: Take 1 tablet by mouth once daily. Tadalafil (CIALIS) 10 mg tablet 4 tablet 5 Sig: Take 1 tablet by mouth as needed (30-60 minutes prior to intercourse). Dharmesh Richards APRN.DANITA Patient phones requesting refills as follows: Requested Prescriptions Pending Prescriptions Disp Refills lisinopril-hydroCHLOROthiazide (ZESTORETIC) 10-12.5 mg per tablet 90 tablet 1 Sig: Take 1 tablet by mouth once daily. Tadalafil (CIALIS) 10 mg tablet 4 tablet 5 Sig: Take 1 tablet by mouth as needed (30-60 minutes prior to intercourse). [place] 05/23/22 NOV no upcoming appt Please review and advise. Greg Bentley LPN documented in this encounter [facility] 06-07-2022 Note HNO ID: [id number] Author: Braulio Brooke PA-C Service: ? Author Type: Physician Thread Drawer Type: Progress Notes Filed: 06/07/2022 1:19 PM Note Text: [facility] NEW CONSULT PATIENT CLINIC NOTE SERVICE DATE: 06/07/2022 SERVICE TIME: 8:13 AM NAME: Fransisco Devlin Consultation requested by Lukasz Vickers MD for an opinion regarding Impotence My final recommendations communicated back to the requesting physician by way of our shared Medical record. CHIEF COMPLAINT: Impotence HISTORY OF PRESENT ILLNESS: Fransisco Devlin is a 51 year old male with PMH including Possible Sleep Disorder presenting for New Patient Consult for Impotence The patient reports failed Cialis/Viagra , he is able to get 50-60 % on his own but hard to maintain after some time We discussed all other therapies , he will retry Viagra 100 mg with new instructions if still not effective Then they will decide ion C Injection LUTS: Other symptoms: ED - yes Previous ED medications: yes Viagra Cialis - no help NTG no Patient was instructed to not take NTG if they have taken PDE5i, patient understands the risk and agrees to follow the plan LABS: No results found for: TESTOST No results found for: TESTFREE No results found for: PSA Hematocrit (%) Date Value 07/03/2017 49.3 08/06/2015 46.4 03/23/2015 47.9 No results found for: PSA Creatinine Date Value Ref Range Status 06/30/2018 1.01 0.73 - 1.22 mg/dL Final 07/03/2017 1.10 0.73 - 1.22 mg/dL Final 08/06/2015 1.16 0.70 - 1.40 mg/dL Final 03/23/2015 1.10 0.70 - 1.40 mg/dL Final MEDICATIONS: Tadalafil (CIALIS) 10 mg tablet Take 1 tablet by mouth as needed (30-60 minutes prior to intercourse). lisinopril-hydroCHLOROthiazide (PRINZIDE,ZESTORETIC) 10-12.5 mg per tablet Take 1 tablet by mouth once daily. PAST MEDICAL HISTORY: PAST MEDICAL HISTORY Diagnosis Date Erectile dysfunction of organic origin Essential hypertension Eustachian tube dysfunction, bilateral HTN (hypertension) Obesity Umbilical hernia 04/01/2015 PAST SURGICAL HISTORY: PAST SURGICAL HISTORY Procedure Laterality Date ESOPHAGOGASTRODUODENOSCOPY TRANSORAL DIAGNOSTIC 09/09/2003 EGD HERNIA REPAIR W/MESH 04/01/15 NEPHROLITHOTOMY REMOVAL STAGE 1 Left 2011 EXTRACORPOREAL SHOCKWAVE LITHOTRIPSY UNILATERAL PAST SURGICAL HISTORY OF Left 04/2016 Labrum Tear and Bone spur removed. Dr. Olson at [facility] FAMILY HISTORY: FAMILY HISTORY Problem Relation Age of Onset Hypertension Father Hypertension Paternal Uncle Hypertension Paternal Aunt Diabetes Father diet controlled. SOCIAL HISTORY: Social Connections: Not on file REVIEW OF SYSTEMS: GENERAL: No fever, chills, weight loss, or fatigue. ENMT: Negative CARDIOVASCULAR:NO CHEST PAIN, PALPITATIONS, ANKLE EDEMA RESPIRATORY: No chronic cough, wheezing, dyspnea, hemoptysis. GENITOURINARY: SEE HPI MUSCULOSKELETAL:NO CHRONIC BACK PAIN, ARTHRITIS, CHRONIC NECK PAIN SKIN: NO VARICOSE VEINS, RASH, ABNORMAL ITCHING HEME/LYMPH/IMMUNE:Negative for prolonged bleeding, bruising easily or swollen nodes NEUROLOGICAL: NO HEADACHES, NUMBNESS, SEIZURES, STROKE DIABETES: no All other systems reviewed and are negative PHYSICAL EXAMINATION: Blood pressure (P) 142/88, pulse (P) 98, resp. rate (P) 15, weight 126.1 kg (278 lb), SpO2 (P) 100 %. GENERAL: WNL nutrition, no deformities, healthy appearing NEURO: Awake, alert and oriented x 3 and Normal gait PSYCH: No signs of depression, anxiety, or agitation ENMT (Ear, Nose, Mouth, Throat): No masses, adenopathy, icterus. Thyroid nonpalpable RESP: NL effort, no retractions or purse-lip breathing. CV: No extremity swelling, varices, edema, pallor, erythema GASTROINTESTINAL: Soft, nontender, nondistended, no masses. HERNIAS: None SKIN: No rash, lesions No palpable lymphadenopathy MUSCULOSKELETAL: Extremities normal. No deformities, edema, clubbing or skin discoloration. PROBLEM LIST REVIEW: Yes LABS: Results for orders placed or performed in visit on 09/24/21 FECAL OCCULT BLOOD TEST Result Value Ref Range Occult Blood, Stool Negative Negative PROCEDURES: IMAGING: IMPRESSION/PLAN: 51 year old male with 1. ED (erectile dysfunction) of organic origin - ICD9: 607.84, ICD10: N52.9 > Trial of Viagra with new instruction > May want to have teaching appointment for IC Injections I spent a total of 40 minutes on the date of the service which included preparing to see the patient, face to face patient care, completing clinical documentation, obtaining and/or reviewing separately obtained history, performing a medically appropriate examination, counseling and educating the patient/family/caregiver, ordering medications, tests, or procedures, and care coordination. POWER Dwyer, MT, PA-C [facility] 06-07-2022 History of Presen t illness Narrative Images from the original note were not included. [facility] NEW CONSULT PATIENT CLINIC NOTE SERVICE DATE: 06/07/2022 SERVICE TIME: 8:13 AM NAME: Fransisco Devlin Consultation requested by Lukasz Vickers MD for an opinion regarding Impotence My final recommendations communicated back to the requesting physician by way of our shared Medical record. CHIEF COMPLAINT: Impotence HISTORY OF PRESENT ILLNESS: Fransisco Devlin is a 51 year old male with PMH including Possible Sleep Disorder presenting for New Patient Consult for Impotence The patient reports failed Cialis/Viagra , he is able to get 50-60 % on his own but hard to maintain after some time We discussed all other therapies , he will retry Viagra 100 mg with new instructions if still not effective Then they will decide ion C Injection LUTS: Other symptoms: ED - yes Previous ED medications: yes Viagra Cialis - no help NTG no Patient was instructed to not take NTG if they have taken PDE5i, patient understands the risk and agrees to follow the plan LABS: No results found for: TESTOST No results found for: TESTFREE No results found for: PSA Hematocrit (%) Date Value 07/03/2017 49.3 08/06/2015 46.4 03/23/2015 47.9 No results found for: PSA Creatinine Date Value Ref Range Status 06/30/2018 1.01 0.73 - 1.22 mg/dL Final 07/03/2017 1.10 0.73 - 1.22 mg/dL Final 08/06/2015 1.16 0.70 - 1.40 mg/dL Final 03/23/2015 1.10 0.70 - 1.40 mg/dL Final MEDICATIONS: Tadalafil (CIALIS) 10 mg tablet Take 1 tablet by mouth as needed (30-60 minutes prior to intercourse). lisinopril-hydroCHLOROthiazide (PRINZIDE,ZESTORETIC) 10-12.5 mg per tablet Take 1 tablet by mouth once daily. PAST MEDICAL HISTORY: PAST MEDICAL HISTORY Diagnosis Date Erectile dysfunction of organic origin Essential hypertension Eustachian tube dysfunction, bilateral HTN (hypertension) Obesity Umbilical hernia 04/01/2015 PAST SURGICAL HISTORY: PAST SURGICAL HISTORY Procedure Laterality Date ESOPHAGOGASTRODUODENOSCOPY TRANSORAL DIAGNOSTIC 09/09/2003 EGD HERNIA REPAIR W/MESH 04/01/15 NEPHROLITHOTOMY REMOVAL STAGE 1 Left 2011 EXTRACORPOREAL SHOCKWAVE LITHOTRIPSY UNILATERAL PAST SURGICAL HISTORY OF Left 04/2016 Labrum Tear and Bone spur removed. Dr. Olson at [facility] FAMILY HISTORY: FAMILY HISTORY Problem Relation Age of Onset Hypertension Father Hypertension Paternal Uncle Hypertension Paternal Aunt Diabetes Father diet controlled. SOCIAL HISTORY: Social Connections: Not on file REVIEW OF SYSTEMS: GENERAL: No fever, chills, weight loss, or fatigue. ENMT: Negative CARDIOVASCULAR:NO CHEST PAIN, PALPITATIONS, ANKLE EDEMA RESPIRATORY: No chronic cough, wheezing, dyspnea, hemoptysis. GENITOURINARY: SEE HPI MUSCULOSKELETAL:NO CHRONIC BACK PAIN, ARTHRITIS, CHRONIC NECK PAIN SKIN: NO VARICOSE VEINS, RASH, ABNORMAL ITCHING HEME/LYMPH/IMMUNE:Negative for prolonged bleeding, bruising easily or swollen nodes NEUROLOGICAL: NO HEADACHES, NUMBNESS, SEIZURES, STROKE DIABETES: no All other systems reviewed and are negative PHYSICAL EXAMINATION: Blood pressure (P) 142/88, pulse (P) 98, resp. rate (P) 15, weight 126.1 kg (278 lb), SpO2 (P) 100 %. GENERAL: WNL nutrition, no deformities, healthy appearing NEURO: Awake, alert and oriented x 3 and Normal gait PSYCH: No signs of depression, anxiety, or agitation ENMT (Ear, Nose, Mouth, Throat): No masses, adenopathy, icterus. Thyroid nonpalpable RESP: NL effort, no retractions or purse-lip breathing. CV: No extremity swelling, varices, edema, pallor, erythema GASTROINTESTINAL: Soft, nontender, nondistended, no masses. HERNIAS: None SKIN: No rash, lesions No palpable lymphadenopathy MUSCULOSKELETAL: Extremities normal. No deformities, edema, clubbing or skin discoloration. PROBLEM LIST REVIEW: Yes LABS: Results for orders placed or performed in visit on 09/24/21 FECAL OCCULT BLOOD TEST Result Value Ref Range Occult Blood, Stool Negative Negative PROCEDURES: IMAGING: IMPRESSION/PLAN: 51 year old male with 1. ED (erectile dysfunction) of organic origin - ICD9: 607.84, ICD10: N52.9 > Trial of Viagra with new instruction > May want to have teaching appointment for IC Injections I spent a total of 40 minutes on the date of the service which included preparing to see the patient, face to face patient care, completing clinical documentation, obtaining and/or reviewing separately obtained history, performing a medically appropriate examination, counseling and educating the patient/family/caregiver, ordering medications, tests, or procedures, and care coordination. POWER Dwyer MT, PA-C documented in this encounter [facility] 05-31-2022 Note HNO ID: [id number] Author: Braulio Brooke PA-C Service: ? Author Type: Physician Thread Drawer Type: Progress Notes Filed: 06/08/2022 7:40 PM Note Text: Patient left clinic without notifying anyone, we will try and contact him, to see if he needs to reschedule POWER Dwyer MT, PA-C [facility] 05-31-2022 Miscellaneous Notes Called patient. Verified name and date of . Rescheduled appointment from today to earlier appoint in the day on June 07, 2022. Patient left without being seen due to provider with previous patients. Isabel Johnson LPN documented in this encounter [facility] 05-31-2022 History of Presen t illness Narrative Patient left clinic without notifying anyone, we will try and contact him, to see if he needs to reschedule POWER Dwyer MT, PA-C documented in this encounter [facility] 05-23-2022 Note HNO ID: [id number] Author: Dharmesh Richards APRN.COMPUTER PROGRAMMING PROFESSOR Service: ? Author Type: Nurse Practitioner Type: Progress Notes Filed: 05/23/2022 11:40 AM Note Text: Chief Complaint Patient presents with: Follow Up For: ED HPI Fransisco Devlin is a 51 year old male who presents here today for Chronic Medical Conditions. Patient here for sinus infection follow up. On Augmentin for it. Has had intermittent ear pain, sinus congestion since December. Crackling, popping, and muffled ears. He has been taking Zyrtec, but not daily. Has been using Flonase daily, sometimes more frequently. ED: Taking Viagra 100 mg. Sometimes working. Sometimes not. Was not working on 50 mg. Taking medication for HTN. No side effects. No chest pain, shortness of breath or passing out. Past medical history, appointments, medications, allergies reviewed. EXAM: BP 118/78 (BP Site: Left Arm) Pulse 96 Temp 36.6 ?C (97.8 ?F) (Left Tympanic) Resp 16 Wt 124.2 kg (273 lb 12.8 oz) BMI 38.19 kg/m? General Appearance: Well appearing, alert, in no acute distress, well-hydrated, well nourished.. Head: Normocephalic, no masses, lesions, tenderness or abnormalities. Eyes: Anicteric sclera. Pupils are equally round and reactive to light. Extraocular movements are intact. . Ears: External ears normal, canals clear. Nose/Sinuses: Positive findings: mucosa erythematous and swollen. Oropharynx: PND . Neck: Supple, no adenopathy; thyroid symmetric, normal size, no bruits. Lungs: Lungs clear to auscultation. No wheezing, rhonchi, rales.. Heart: RRR without murmur, gallop, or rubs. No ectopy. ASSESSMENT/PLAN: 1. ED (erectile dysfunction) of organic origin - ICD9: 607.84, ICD10: N52.9 (primary diagnosis) - Some improvement with increase to Viagra 100 mg but still would like more improvement - CONSULT TO UROLOGY - TADALAFIL 10 MG TABLET 2. Essential hypertension - ICD9: 401.9, ICD10: I10 - good control - Continue current medication(s) - Recommended regular aerobic exercise. - Recommend home blood pressure monitoring, to bring results in on next visit - Goal of BP <130/80 3. Eustachian tube dysfunction, bilateral - ICD9: 381.81, ICD10: H69.83 - Start Zyrtec daily, use Flonase twice daily - PREDNISONE 20 MG TABLET - CONSULT TO ENT 4. Acute recurrent maxillary sinusitis - ICD9: 461.0, ICD10: J01.01 - Continue with Augmentin as prescribed - PREDNISONE 20 MG TABLET - CONSULT TO ENT Dharmesh Richards APRN.COMPUTER PROGRAMMING PROFESSOR This note was partly generated using Zilliant voice recognition dictation and may contain some misspelled or inaccurate words missed on review. [facility] 05-23-2022 History of Presen t illness Narrative Chief Complaint Patient presents with: Follow Up For: ED HPI Frasnisco Devlin is a 51 year old male who presents here today for Chronic Medical Conditions. Patient here for sinus infection follow up. On Augmentin for it. Has had intermittent ear pain, sinus congestion since December. Crackling, popping, and muffled ears. He has been taking Zyrtec, but not daily. Has been using Flonase daily, sometimes more frequently. ED: Taking Viagra 100 mg. Sometimes working. Sometimes not. Was not working on 50 mg. Taking medication for HTN. No side effects. No chest pain, shortness of breath or passing out. Past medical history, appointments, medications, allergies reviewed. EXAM: BP 118/78 (BP Site: Left Arm) Pulse 96 Temp 36.6 C (97.8 F) (Left Tympanic) Resp 16 Wt 124.2 kg (273 lb 12.8 oz) BMI 38.19 kg/m General Appearance: Well appearing, alert, in no acute distress, well-hydrated, well nourished.. Head: Normocephalic, no masses, lesions, tenderness or abnormalities. Eyes: Anicteric sclera. Pupils are equally round and reactive to light. Extraocular movements are intact. . Ears: External ears normal, canals clear. Nose/Sinuses: Positive findings: mucosa erythematous and swollen. Oropharynx: PND . Neck: Supple, no adenopathy; thyroid symmetric, normal size, no bruits. Lungs: Lungs clear to auscultation. No wheezing, rhonchi, rales.. Heart: RRR without murmur, gallop, or rubs. No ectopy. ASSESSMENT/PLAN: 1. ED (erectile dysfunction) of organic origin - ICD9: 607.84, ICD10: N52.9 (primary diagnosis) - Some improvement with increase to Viagra 100 mg but still would like more improvement - CONSULT TO UROLOGY - TADALAFIL 10 MG TABLET 2. Essential hypertension - ICD9: 401.9, ICD10: I10 - good control - Continue current medication(s) - Recommended regular aerobic exercise. - Recommend home blood pressure monitoring, to bring results in on next visit - Goal of BP <130/80 3. Eustachian tube dysfunction, bilateral - ICD9: 381.81, ICD10: H69.83 - Start Zyrtec daily, use Flonase twice daily - PREDNISONE 20 MG TABLET - CONSULT TO ENT 4. Acute recurrent maxillary sinusitis - ICD9: 461.0, ICD10: J01.01 - Continue with Augmentin as prescribed - PREDNISONE 20 MG TABLET - CONSULT TO ENT Dharmesh Richards APRN.COMPUTER PROGRAMMING PROFESSOR This note was partly generated using [employer] voice recognition dictation and may contain some misspelled or inaccurate words missed on review. documented in this encounter [facility] 05-15-2022 Note HNO ID: [id number] Author: Fco Toney APRN.COMPUTER PROGRAMMING PROFESSOR Service: ? Author Type: Nurse Practitioner Type: Progress Notes Filed: 05/15/2022 8:56 AM Note Text: Subjective HPI Nontoxic-appearing male presents urgent care chief plaint possible sinus infection. Duration of symptoms on and off for the last 2 months. Patient states was seen here March 18 placed on doxycycline. Symptoms did resolve some and then returned after completion of antibiotic. Has tried OTC medications these have not helped. Presents today with persistent sinus pressure drainage bilateral ear pain. Has had sinus infections but not this severe. Has not been evaluated by ENT at this point. Denies any history of sinus trauma or surgeries. Denies any fever body aches chills productive cough chest pain shortness of breath pleuritic pain hemoptysis nausea vomiting abdominal pain change in bowel or bladder habits. Past medical history prescription medication use and allergies reviewed. .Patient presents with: Nasal Congestion: Pt reported bilateral ear pain, x2 mths PAST MEDICAL HISTORY Diagnosis Date HTN (hypertension) Obesity Umbilical hernia 04/01/2015 PAST SURGICAL HISTORY Procedure Laterality Date ESOPHAGOGASTRODUODENOSCOPY TRANSORAL DIAGNOSTIC 09/09/2003 EGD HERNIA REPAIR W/MESH 04/01/15 NEPHROLITHOTOMY REMOVAL STAGE 1 Left 2011 EXTRACORPOREAL SHOCKWAVE LITHOTRIPSY UNILATERAL PAST SURGICAL HISTORY OF Left 04/2016 Labrum Tear and Bone spur removed. Dr. Olson at [facility] ALLERGIES Vicodin [Hydrocodone-Acetaminophen] MEDICATIONS lisinopril-hydroCHLOROthiazide (PRINZIDE,ZESTORETIC) 10-12.5 mg per tablet Take 1 tablet by mouth once daily. sildenafil (VIAGRA) 100 mg tablet Take 1 tablet by mouth as needed (30-60 minutes prior to intercourse). FAMILY HISTORY Problem Relation Age of Onset Hypertension Father Hypertension Paternal Uncle Hypertension Paternal Aunt Diabetes Father diet controlled. Social History Tobacco Use Smoking status: Never Smokeless tobacco: Never Vaping Use Vaping Use: Never used Substance Use Topics Alcohol use: Yes Comment: minimal <1 per week. Drug use: No BP 122/68 Pulse 96 Temp 36.6 ?C (97.8 ?F) (Tympanic) Resp 18 Wt 126.6 kg (279 lb 3.2 oz) SpO2 97% BMI 38.94 kg/m? Review of Systems Constitutional: Negative for chills, fever and malaise/fatigue. HENT: Positive for congestion, ear pain and sinus pain. Negative for ear discharge and sore throat. Eyes: Negative for blurred vision, pain, discharge and redness. Respiratory: Negative for cough, hemoptysis, sputum production, shortness of breath, wheezing and stridor. Cardiovascular: Negative for chest pain. Gastrointestinal: Negative for abdominal pain, diarrhea, nausea and vomiting. Musculoskeletal: Negative for myalgias. Skin: Negative for itching and rash. Neurological: Negative for dizziness and headaches. Objective Physical Exam Constitutional: General: He is not in acute distress. Appearance: He is not diaphoretic. HENT: Head: Normocephalic. Right Ear: Tympanic membrane, ear canal and external ear normal. Left Ear: Tympanic membrane, ear canal and external ear normal. Ears: Comments: Clear fluid noted behind bilateral TMs. Right greater than left. Nose: Right Sinus: Maxillary sinus tenderness present. Left Sinus: Maxillary sinus tenderness present. Mouth/Throat: Lips: Berwind. Mouth: Mucous membranes are moist. Pharynx: Oropharynx is clear. Uvula midline. No pharyngeal swelling, oropharyngeal exudate, posterior oropharyngeal erythema or uvula swelling. Eyes: Conjunctiva/sclera: Conjunctivae normal. Pupils: Pupils are equal, round, and reactive to light. Cardiovascular: Rate and Rhythm: Normal rate and regular rhythm. Heart sounds: Normal heart sounds. Pulmonary: Effort: Pulmonary effort is normal. No tachypnea, accessory muscle usage or respiratory distress. Breath sounds: Normal breath sounds. No stridor. No wheezing, rhonchi or rales. Abdominal: General: There is no distension. Palpations: Abdomen is soft. Tenderness: There is no abdominal tenderness. There is no guarding or rebound. Musculoskeletal: Cervical back: Normal range of motion and neck supple. No rigidity or tenderness. Lymphadenopathy: Cervical: No cervical adenopathy. Skin: General: Skin is warm and dry. Neurological: Mental Status: He is alert and oriented to person, place, and time. ASSESSMENT/PLAN: 1. Acute maxillary sinusitis, recurrence not specified - ICD9: 461.0, ICD10: J01.00 Diagnosed with acute maxillary sinusitis. Placed on Augmentin. Importance of following up with ENT discussed with patient. Contact ENTs office on Monday further evaluation care. Patient was educated on supportive therapies. Patient will follow up with primary care provider as needed. Patient was instructed to immediately proceed to emergency room for any new, wor (more content not included)... [facility] 05-15-2022 History of Presen t illness Narrative Subjective HPI Nontoxic-appearing male presents urgent care chief plaint possible sinus infection. Duration of symptoms on and off for the last 2 months. Patient states was seen here March 18 placed on doxycycline. Symptoms did resolve some and then returned after completion of antibiotic. Has tried OTC medications these have not helped. Presents today with persistent sinus pressure drainage bilateral ear pain. Has had sinus infections but not this severe. Has not been evaluated by ENT at this point. Denies any history of sinus trauma or surgeries. Denies any fever body aches chills productive cough chest pain shortness of breath pleuritic pain hemoptysis nausea vomiting abdominal pain change in bowel or bladder habits. Past medical history prescription medication use and allergies reviewed. .Patient presents with: Nasal Congestion: Pt reported bilateral ear pain, x2 mths PAST MEDICAL HISTORY Diagnosis Date HTN (hypertension) Obesity Umbilical hernia 04/01/2015 PAST SURGICAL HISTORY Procedure Laterality Date ESOPHAGOGASTRODUODENOSCOPY TRANSORAL DIAGNOSTIC 09/09/2003 EGD HERNIA REPAIR W/MESH 04/01/15 NEPHROLITHOTOMY REMOVAL STAGE 1 Left 2011 EXTRACORPOREAL SHOCKWAVE LITHOTRIPSY UNILATERAL PAST SURGICAL HISTORY OF Left 04/2016 Labrum Tear and Bone spur removed. Dr. Olson at [facility] ALLERGIES Vicodin [Hydrocodone-Acetaminophen] MEDICATIONS lisinopril-hydroCHLOROthiazide (PRINZIDE,ZESTORETIC) 10-12.5 mg per tablet Take 1 tablet by mouth once daily. sildenafil (VIAGRA) 100 mg tablet Take 1 tablet by mouth as needed (30-60 minutes prior to intercourse). FAMILY HISTORY Problem Relation Age of Onset Hypertension Father Hypertension Paternal Uncle Hypertension Paternal Aunt Diabetes Father diet controlled. Social History Tobacco Use Smoking status: Never Smokeless tobacco: Never Vaping Use Vaping Use: Never used Substance Use Topics Alcohol use: Yes Comment: minimal <1 per week. Drug use: No BP 122/68 Pulse 96 Temp 36.6 C (97.8 F) (Tympanic) Resp 18 Wt 126.6 kg (279 lb 3.2 oz) SpO2 97% BMI 38.94 kg/m Review of Systems Constitutional: Negative for chills, fever and malaise/fatigue. HENT: Positive for congestion, ear pain and sinus pain. Negative for ear discharge and sore throat. Eyes: Negative for blurred vision, pain, discharge and redness. Respiratory: Negative for cough, hemoptysis, sputum production, shortness of breath, wheezing and stridor. Cardiovascular: Negative for chest pain. Gastrointestinal: Negative for abdominal pain, diarrhea, nausea and vomiting. Musculoskeletal: Negative for myalgias. Skin: Negative for itching and rash. Neurological: Negative for dizziness and headaches. Objective Physical Exam Constitutional: General: He is not in acute distress. Appearance: He is not diaphoretic. HENT: Head: Normocephalic. Right Ear: Tympanic membrane, ear canal and external ear normal. Left Ear: Tympanic membrane, ear canal and external ear normal. Ears: Comments: Clear fluid noted behind bilateral TMs. Right greater than left. Nose: Right Sinus: Maxillary sinus tenderness present. Left Sinus: Maxillary sinus tenderness present. Mouth/Throat: Lips: Berwind. Mouth: Mucous membranes are moist. Pharynx: Oropharynx is clear. Uvula midline. No pharyngeal swelling, oropharyngeal exudate, posterior oropharyngeal erythema or uvula swelling. Eyes: Conjunctiva/sclera: Conjunctivae normal. Pupils: Pupils are equal, round, and reactive to light. Cardiovascular: Rate and Rhythm: Normal rate and regular rhythm. Heart sounds: Normal heart sounds. Pulmonary: Effort: Pulmonary effort is normal. No tachypnea, accessory muscle usage or respiratory distress. Breath sounds: Normal breath sounds. No stridor. No wheezing, rhonchi or rales. Abdominal: General: There is no distension. Palpations: Abdomen is soft. Tenderness: There is no abdominal tenderness. There is no guarding or rebound. Musculoskeletal: Cervical back: Normal range of motion and neck supple. No rigidity or tenderness. Lymphadenopathy: Cervical: No cervical adenopathy. Skin: General: Skin is warm and dry. Neurological: Mental Status: He is alert and oriented to person, place, and time. ASSESSMENT/PLAN: 1. Acute maxillary sinusitis, recurrence not specified - ICD9: 461.0, ICD10: J01.00 Diagnosed with acute maxillary sinusitis. Placed on Augmentin. Importance of following up with ENT discussed with patient. Contact ENTs office on Monday further evaluation care. Patient was educated on supportive therapies. Patient will follow up with primary care provider as needed. Patient was instructed to immediately proceed to emergency room for any new, worsening, or symptoms lasting longer than anticipated. The patient's clinical presentation is otherwise unremarkable at this time. Based on exam and clinical finding, the patient is stable for discharge. Plan of care was discussed with patient. Patient verbalizes understanding and agrees to plan of care. This note was generated using Zilliant software. It may contain errors in wording, punctuation, or spelling. Fco Toney APRN.DANITA documented in this encounter [facility] 03-18-2022 Note HNO ID: [id number] Author: Moustapha Henry APRN.COMPUTER PROGRAMMING PROFESSOR Service: ? Author Type: Nurse Practitioner Type: Progress Notes Filed: 03/18/2022 11:40 AM Note Text: Subjective HPI HPI Fransisco Devlin is a 51 year old male who presents today for CC of sinus pressure, cough, now yellow sinus drainage. This started 2 weeks ago. Has tried otc medication with pseudoephedrine for relief. Symptoms are worsened by nothing. Risk factors hx of sinusitis. .Patient presents with: Nasal Congestion: Cough, x2 wks, denied fever, chills. PAST MEDICAL HISTORY Diagnosis Date HTN (hypertension) Obesity Umbilical hernia 04/01/2015 PAST SURGICAL HISTORY Procedure Laterality Date ESOPHAGOGASTRODUODENOSCOPY TRANSORAL DIAGNOSTIC 09/09/2003 EGD HERNIA REPAIR W/MESH 04/01/15 NEPHROLITHOTOMY REMOVAL STAGE 1 Left 2011 EXTRACORPOREAL SHOCKWAVE LITHOTRIPSY UNILATERAL PAST SURGICAL HISTORY OF Left 04/2016 Labrum Tear and Bone spur removed. Dr. Olson at [facility] ALLERGIES Vicodin [Hydrocodone-Acetaminophen] MEDICATIONS lisinopril-hydroCHLOROthiazide (PRINZIDE,ZESTORETIC) 10-12.5 mg per tablet Take 1 tablet by mouth once daily. sildenafil (VIAGRA) 100 mg tablet Take 1 tablet by mouth as needed (30-60 minutes prior to intercourse). FAMILY HISTORY Problem Relation Age of Onset Hypertension Father Hypertension Paternal Uncle Hypertension Paternal Aunt Diabetes Father diet controlled. Social History Tobacco Use Smoking status: Never Smokeless tobacco: Never Vaping Use Vaping Use: Never used Substance Use Topics Alcohol use: Yes Comment: minimal <1 per week. Drug use: No Review of Systems Constitutional: Negative for fever. HENT: Positive for congestion and sinus pain. Negative for ear pain, nosebleeds and sore throat. Respiratory: Positive for cough. Negative for shortness of breath and wheezing. Cardiovascular: Negative for chest pain. Musculoskeletal: Negative for neck pain. Skin: Negative for itching and rash. Objective Blood pressure 124/80, pulse (!) 127, temperature 36.9 ?C (98.4 ?F), temperature source Tympanic, resp. rate 18, weight 123.6 kg (272 lb 6.4 oz), SpO2 98 %. HR rechecked manual by provider 108/regular. Physical Exam Constitutional: General: He is not in acute distress. Appearance: He is not toxic-appearing or diaphoretic. HENT: Head: Normocephalic and atraumatic. Nose: Right Sinus: Maxillary sinus tenderness present. Left Sinus: Maxillary sinus tenderness present. Cardiovascular: Rate and Rhythm: Normal rate and regular rhythm. Heart sounds: Normal heart sounds, S1 normal and S2 normal. Pulmonary: Effort: Pulmonary effort is normal. Breath sounds: Normal breath sounds. Lymphadenopathy: Cervical: No cervical adenopathy. Right cervical: No superficial cervical adenopathy. Left cervical: No superficial cervical adenopathy. Neurological: Mental Status: He is alert and oriented to person, place, and time. Gait: Gait is intact. ASSESSMENT/PLAN: 1. Sinobronchitis - ICD9: 473.9, 490, ICD10: J32.9, J40 - Will begin treatment with as per antibiotic as written, see orders - Supportive care with plenty of fluids, rest, and analgesia prn. - Follow up in 3-5 days if symptoms persist or worsen. Discontinue pseudoephedrine medication. - DOXYCYCLINE MONOHYDRATE 100 MG TABLET Moustapha Henry APRN.[facility] [place] 03-18-2022 History of Presen t illness Narrative Subjective HPI HPI Fransisco Devlin is a 51 year old male who presents today for CC of sinus pressure, cough, now yellow sinus drainage. This started 2 weeks ago. Has tried otc medication with pseudoephedrine for relief. Symptoms are worsened by nothing. Risk factors hx of sinusitis. .Patient presents with: Nasal Congestion: Cough, x2 wks, denied fever, chills. PAST MEDICAL HISTORY Diagnosis Date HTN (hypertension) Obesity Umbilical hernia 04/01/2015 PAST SURGICAL HISTORY Procedure Laterality Date ESOPHAGOGASTRODUODENOSCOPY TRANSORAL DIAGNOSTIC 09/09/2003 EGD HERNIA REPAIR W/MESH 04/01/15 NEPHROLITHOTOMY REMOVAL STAGE 1 Left 2011 EXTRACORPOREAL SHOCKWAVE LITHOTRIPSY UNILATERAL PAST SURGICAL HISTORY OF Left 04/2016 Labrum Tear and Bone spur removed. Dr. Olson at [facility] ALLERGIES Vicodin [Hydrocodone-Acetaminophen] MEDICATIONS lisinopril-hydroCHLOROthiazide (PRINZIDE,ZESTORETIC) 10-12.5 mg per tablet Take 1 tablet by mouth once daily. sildenafil (VIAGRA) 100 mg tablet Take 1 tablet by mouth as needed (30-60 minutes prior to intercourse). FAMILY HISTORY Problem Relation Age of Onset Hypertension Father Hypertension Paternal Uncle Hypertension Paternal Aunt Diabetes Father diet controlled. Social History Tobacco Use Smoking status: Never Smokeless tobacco: Never Vaping Use Vaping Use: Never used Substance Use Topics Alcohol use: Yes Comment: minimal <1 per week. Drug use: No Review of Systems Constitutional: Negative for fever. HENT: Positive for congestion and sinus pain. Negative for ear pain, nosebleeds and sore throat. Respiratory: Positive for cough. Negative for shortness of breath and wheezing. Cardiovascular: Negative for chest pain. Musculoskeletal: Negative for neck pain. Skin: Negative for itching and rash. Objective Blood pressure 124/80, pulse (!) 127, temperature 36.9 C (98.4 F), temperature source Tympanic, resp. rate 18, weight 123.6 kg (272 lb 6.4 oz), SpO2 98 %. HR rechecked manual by provider 108/regular. Physical Exam Constitutional: General: He is not in acute distress. Appearance: He is not toxic-appearing or diaphoretic. HENT: Head: Normocephalic and atraumatic. Nose: Right Sinus: Maxillary sinus tenderness present. Left Sinus: Maxillary sinus tenderness present. Cardiovascular: Rate and Rhythm: Normal rate and regular rhythm. Heart sounds: Normal heart sounds, S1 normal and S2 normal. Pulmonary: Effort: Pulmonary effort is normal. Breath sounds: Normal breath sounds. Lymphadenopathy: Cervical: No cervical adenopathy. Right cervical: No superficial cervical adenopathy. Left cervical: No superficial cervical adenopathy. Neurological: Mental Status: He is alert and oriented to person, place, and time. Gait: Gait is intact. ASSESSMENT/PLAN: 1. Sinobronchitis - ICD9: 473.9, 490, ICD10: J32.9, J40 - Will begin treatment with as per antibiotic as written, see orders - Supportive care with plenty of fluids, rest, and analgesia prn. - Follow up in 3-5 days if symptoms persist or worsen. Discontinue pseudoephedrine medication. - DOXYCYCLINE MONOHYDRATE 100 MG TABLET Moustapha Henry APRN.COMPUTER PROGRAMMING PROFESSOR documented in this encounter [facility] 12-31-2021 Miscellaneous Notes The following approved medication requests have been transmitted electronically. Requested Prescriptions Pending Prescriptions Disp Refills lisinopril-hydroCHLOROthiazide (PRINZIDE,ZESTORETIC) 10-12.5 mg per tablet 90 tablet 1 Sig: Take 1 tablet by mouth once daily. Dharmesh Richards APRN.COMPUTER PROGRAMMING PROFESSOR Patient phones requesting refills as follows: Requested Prescriptions Pending Prescriptions Disp Refills lisinopril-hydroCHLOROthiazide (PRINZIDE,ZESTORETIC) 10-12.5 mg per tablet 90 tablet 3 Sig: Take 1 tablet by mouth once daily. [place]-11/26/21 Labs-11/26/21 NOV-none med filled 10/15/20 Please review and advise. Sherry Goel LPN documented in this encounter [facility] 11-26-2021 History of Presen t illness Narrative Chief Complaint Patient presents with: Follow Up HPI Fransisco Devlin is a 51 year old male who presents here today for Chronic Medical Conditions. Here for follow up for ED, bilateral hip and shoulder pain. Saw me recently for physical. Started on meloxicam 15 mg for bilateral hip and shoulder pain. He had imaging of neck,hips that showed arthritis in the joints. Nothing severe. Does follow with an outside orthopedics provider. Quit taking after 3 weeks due to stomach hurting. He didn't much benefit from it. Started on Viagra 50 mg for ED. Testosterone and UA was normal on blood work. Would like to get the 2nd shingles vaccine. It has been 2 months since first dose. Past medical history, appointments, medications, allergies reviewed. Previous Medical History PAST MEDICAL HISTORY Diagnosis Date HTN (hypertension) Obesity Umbilical hernia 04/01/2015 Previous Surgical History PAST SURGICAL HISTORY Procedure Laterality Date ESOPHAGOGASTRODUODENOSCOPY TRANSORAL DIAGNOSTIC 09/09/2003 EGD HERNIA REPAIR W/MESH 04/01/15 NEPHROLITHOTOMY REMOVAL STAGE 1 Left 2011 EXTRACORPOREAL SHOCKWAVE LITHOTRIPSY UNILATERAL PAST SURGICAL HISTORY OF Left 04/2016 Labrum Tear and Bone spur removed. Dr. Olson at [facility] Family History FAMILY HISTORY Problem Relation Age of Onset Hypertension Father Hypertension Paternal Uncle Hypertension Paternal Aunt Diabetes Father diet controlled. Patient Allergies ALLERGIES Allergen Reactions Vicodin [Hydrocodon* GI Upset Weird dreams Current Medications Current Outpatient Medications on File Prior to Visit Medication Sig meloxicam (MOBIC) 15 mg tablet Take 1 tablet by mouth once daily. With food. sildenafil (VIAGRA) 50 mg tablet Take 1 tablet by mouth as needed (30-60 minutes prior to intercourse). lisinopril-hydroCHLOROthiazide (PRINZIDE,ZESTORETIC) 10-12.5 mg per tablet Take 1 tablet by mouth once daily. No current facility-administered medications on file prior to visit. Social History Social History Tobacco Use Smoking status: Never Smokeless tobacco: Never Vaping Use Vaping Use: Never used Substance Use Topics Alcohol use: Yes Comment: minimal <1 per week. Drug use: No REVIEW OF SYSTEMS: as above Reviewed relevant PMHx, PSHx, Social Hx, current medications and allergies. EXAM: BP 110/76 (BP Site: Left Arm) Pulse 84 Temp 36.6 C (97.8 F) (Left Tympanic) Resp 16 Wt 119.1 kg (262 lb 9.6 oz) BMI 36.63 kg/m General Appearance: Well appearing, alert, in no acute distress, well-hydrated, well nourished.. Lungs: Lungs clear to auscultation. No wheezing, rhonchi, rales.. Heart: RRR without murmur, gallop, or rubs. No ectopy. Health Maintenance List HEPATITIS B(1 of 3 - 3-dose series) Never done COLORECTAL CANCER SCREENING Never done DEPRESSION ASSESSMENT Never done DIABETES SCREEN due on 06/30/2021 INFLUENZA(1) due on 10/28/2021 SHINGRIX VACCINE(2 of 2) due on 11/19/2021 COVID-19 VACCINE(1) due on 09/24/2022 ANNUAL PCP TEAM CHRONIC DISEASE VISIT due on 09/24/2022 BP CONTROLLED (<130/80) due on 09/24/2022 LIPID SCREEN due on 07/01/2023 DTAP,TDAP,TD(2 - Td or Tdap) due on 02/26/2025 HEPATITIS C SCREENING Addressed HIV SCREENING Discontinued Data reviewed External labs reviewed. ASSESSMENT/PLAN: 1. Bilateral hip pain - ICD9: 719.45, ICD10: M25.551, M25.552 (primary diagnosis) - Did not tolerated meloxicam. He will schedule with orthopedics at the [facility] 2. Cervical radiculopathy - ICD9: 723.4, ICD10: M54.12 3. ED (erectile dysfunction) of organic origin - ICD9: 607.84, ICD10: N52.9 - Increase Viagra to 100 mg - SILDENAFIL 100 MG TABLET 4. Encounter for immunization - ICD9: V03.89, ICD10: Z23 - ZOSTER VACC RECOMBINANT,IM Dharmesh Richards APRN.CNP RTO in 6 months, sooner if needed. This note was partly generated using Zilliant voice recognition dictation and may contain some misspelled or inaccurate words missed on review. documented in this encounter [facility] 11-26-2021 Instructions Dharmesh Richards APRN.CNP - 11/26/2021 12:13 PM EDT Increase Viagra to 100 mg Continue [facility] Shingles vaccine done today, good for life. 4. Follow up in 6 months. Dharmesh Richards APRN.CNP documented in this encounter [facility] 09-24-2021 Instructions Dharmesh Richards APRN.CNP - 09/24/2021 12:44 PM EDT 1. Get xray 2. Get blood work, medical detailist between 7 and 9 am 3. Got Shingles today, next one in 2-6 months 4. Start Meloxicam with food daily 5. Start Viagra 50 mg, 30-60 minutes prior to intercourse. 6. Follow up in 6 weeks Dharmesh Richards APRN.CNP documented in this encounter [facility] 09-24-2021 History of Presen t illness Narrative Chief Complaint Patient presents with: Physical HPI Fransisco Devlin is a 51 year old male who presents here today for physical exam. Here with significant other. Here for physical exam. Had blood work last year but had it down else. Glucose was 101 and alk phos was 145. Cholesterol was good. Does not wish to have COVID vaccine. Okay with Shingles vaccine. HTN: Patient is compliant with meds Yes Monitors bp at home: occasionally. Denies side effects: Yes. Chest pain: No. Dyspnea: No. Edema: No. Palpitations: No. Syncope: No. Headache: No. Dizziness: No. Discussing that his hips and shoulders have been bothering him. Mentions that it is both hips and shoulders. Certain positions increase his pain. Not a lot of loss of ROM in the hips. Some improvement with NSAIDs. Discussing it is more hips than shoulders. Has been doing a lot of work with cutting wood. Does have some numbness in his bilateral hands, depending on positioning it is fingers. ED: Has been having difficulty with maintaining an erection. Sometimes with obtaining. He has never had problems prior. No urinary symptoms. Past medical history, appointments, medications, allergies reviewed. Previous Medical History PAST MEDICAL HISTORY Diagnosis Date HTN (hypertension) Obesity Umbilical hernia 04/01/2015 Previous Surgical History PAST SURGICAL HISTORY Procedure Laterality Date EGD W/O OR W/BRUSH/WASH 09/09/2003 EGD HERNIA REPAIR W/MESH 04/01/15 PAST SURGICAL HISTORY OF Left 04/2016 Labrum Tear and Bone spur removed. Dr. Olson at [facility] REMOVAL OF KIDNEY STONE Left 2011 EXTRACORPOREAL SHOCKWAVE LITHOTRIPSY UNILATERAL Family History FAMILY HISTORY Problem Relation Age of Onset Hypertension Father Hypertension Paternal Uncle Hypertension Paternal Aunt Diabetes Father diet controlled. Patient Allergies ALLERGIES Allergen Reactions Vicodin [Hydrocodon* GI Upset Weird dreams Current Medications Current Outpatient Medications on File Prior to Visit Medication Sig lisinopril-hydroCHLOROthiazide (PRINZIDE,ZESTORETIC) 10-12.5 mg per tablet Take 1 tablet by mouth once daily. No current facility-administered medications on file prior to visit. Social History Social History Tobacco Use Smoking status: Never Smoker Smokeless tobacco: Never Used Vaping Use Vaping Use: Never used Substance Use Topics Alcohol use: Yes Comment: minimal <1 per week. Drug use: No EXAM: BP 136/88 Pulse 86 Temp 36.4 C (97.6 F) (Left Tympanic) Resp 16 Ht 180.3 cm (5' 11 ) Wt 119.3 kg (263 lb) BMI 36.68 kg/m General Appearance: Well appearing, alert, in no acute distress, well-hydrated, well nourished. and Obese. Neck: Supple, no adenopathy; thyroid symmetric, normal size, Lungs: Lungs clear to auscultation. No wheezing, rhonchi, rales.. Heart: RRR without murmur, gallop, or rubs. No ectopy. Abdomen: Normal abdominal exam, Abdomen soft, non-tender. Bowel sounds normal. No masses, organomegaly. Musculoskeletal: HIP: Location: Left: Redness: No. Warmth: No. Range of motion: Decreased Tenderness over trochanteric bursa: yes Pain with movement: Yes. HIP: Location: Righjt Redness: No. Warmth: No. Range of motion: decreased Tenderness over trochanteric bursa: Yes Pain with movement: Yes. Shoulder: Location: Right and Left Redness: No. Warmth: No. Tenderness to palpation: No. Swelling: No. Range of motion: intact Empty can test: negative Bucio: negative Cervical: Tenderness of the bilateral upper trapezius. Some decreased ROM when turning left and right. Health Maintenance List COVID-19 VACCINE(1) Never done COLORECTAL CANCER SCREENING Never done SHINGRIX VACCINE(1 of 2) Never done DIABETES SCREEN due on 06/30/2021 ANNUAL PCP TEAM CHRONIC DISEASE VISIT due on 09/21/2021 BP CONTROLLED (<130/80) due on 09/21/2021 DEPRESSION SCREENING due on 09/21/2021 INFLUENZA(1) due on 10/28/2021 LIPID SCREEN due on 07/01/2023 DTAP,TDAP,TD(2 - Td or Tdap) due on 02/26/2025 HEPATITIS C SCREENING Addressed HIV SCREENING Discontinued Data reviewed None recently completed. ASSESSMENT/PLAN: 1. Primary hypertension - ICD9: 401.9, ICD10: I10 (primary diagnosis) - good control - Continue current medication(s) - Recommended regular aerobic exercise. - Recommend home blood pressure monitoring, to bring results in on next visit - Goal of BP <130/80 2. Bilateral hip pain - ICD9: 719.45, ICD10: M25.551, M25.552 - Likely combination of OA and bursitis. Get xray, demonstrated stretches, start meloxicam - XR HIP BILATERAL 5V PEL/AP/LAT EACH HIP - MELOXICAM 15 MG TABLET 3. Cervical radiculopathy - ICD9: 723.4, ICD10: M54.12 - Likely cause some of his paraesthesia. Get imaging, start NSAID - XR CERV OTHER 4V AP/LAT/OBL - MELOXICAM 15 MG TABLET 4. Obesity, Class II, BMI 35-39.9 - ICD9: 278.00, ICD10: E66.9 5. Elevated glucose - ICD9: 790.29, ICD10: R73.09 Glucose 101 on blood work - HGB A1C 6. Screening for colon cancer - ICD9: V76.51, ICD10: Z12.11 - FECAL OCCULT BLOOD TEST 7. Encounter for immunization - ICD9: V03.89, ICD10: Z23 - ZOSTER VACC RECOMBINANT,IM 8. Chronic pain of both shoulders - ICD9: 719.41, 338.29, ICD10: M25.511, G89.29, M25.512 - overuse, start NSAID 9. ED (erectile dysfunction) of organic origin - ICD9: 607.84, ICD10: N52.9 - Get urine and testosterone in the morning time, start viagra. Discussed that ED can be multi-fact oral. - TESTOSTERONE, FREE AND TOTAL - URINALYSIS, WITH MICROSCOPIC - SILDENAFIL 50 MG TABLET Dharmesh Richards APRN.DANITA RTO in 4-6 weeks, sooner if needed. This note was partly generated using Zilliant voice recognition dictation and may contain some misspelled or inaccurate words missed on review. documented in this encounter [facility] documented as of this encounter (statuses as of 09/24/2021) [facility] History of Past illness Narrative* Problem Noted Date Resolved Date Hematuria 03/31/2011 01/03/2017 Generalized abdominal pain 03/31/201101/03 Right inguinal hernia 03/31/2011 01/03/2017 Dehydration 03/31/2011 01/03/2017 documented as of this encounter (statuses as of 11/26/2021) [facility] History of Past illness Narrative* Problem Noted Date Resolved Date Hematuria 03/31/2011 01/03/2017 Generalized abdominal pain 03/31/201101/03 Right inguinal hernia 03/31/2011 01/03/2017 Dehydration 03/31/2011 01/03/2017 documented as of this encounter (statuses as of 12/31/2021) [facility] History of Past illness Narrative* Problem Noted Date Resolved Date Hematuria 03/31/2011 01/03/2017 Generalized abdominal pain 03/31/201101/03 Right inguinal hernia 03/31/2011 01/03/2017 Dehydration 03/31/2011 01/03/2017 documented as of this encounter (statuses as of 03/18/2022) [facility] History of Past illness Narrative* Problem Noted Date Resolved Date Hematuria 03/31/2011 01/03/2017 Generalized abdominal pain 03/31/201101/03 Right inguinal hernia 03/31/2011 01/03/2017 Dehydration 03/31/2011 01/03/2017 documented as of this encounter (statuses as of 04/15/2022) [facility] History of Past illness Narrative* Problem Noted Date Resolved Date Hematuria 03/31/2011 01/03/2017 Generalized abdominal pain 03/31/201101/03 Right inguinal hernia 03/31/2011 01/03/2017 Dehydration 03/31/2011 01/03/2017 documented as of this encounter (statuses as of 05/15/2022) [facility] History of Past illness Narrative* Problem Noted Date Resolved Date Hematuria 03/31/2011 01/03/2017 Generalized abdominal pain 03/31/201101/03 Right inguinal hernia 03/31/2011 01/03/2017 Dehydration 03/31/2011 01/03/2017 documented as of this encounter (statuses as of 05/23/2022) [facility] History of Past illness Narrative* Problem Noted Date Resolved Date Hematuria 03/31/2011 01/03/2017 Generalized abdominal pain 03/31/201101/03 Right inguinal hernia 03/31/2011 01/03/2017 Dehydration 03/31/2011 01/03/2017 documented as of this encounter (statuses as of 05/31/2022) [facility] History of Past illness Narrative* Problem Noted Date Resolved Date Hematuria 03/31/2011 01/03/2017 Generalized abdominal pain 03/31/201101/03 Right inguinal hernia 03/31/2011 01/03/2017 Dehydration 03/31/2011 01/03/2017 documented as of this encounter (statuses as of 06/08/2022) [facility] History of Past illness Narrative* Problem Noted Date Resolved Date Hematuria 03/31/2011 01/03/2017 Generalized abdominal pain 03/31/201101/03 Right inguinal hernia 03/31/2011 01/03/2017 Dehydration 03/31/2011 01/03/2017 documented as of this encounter (statuses as of 06/09/2022) [facility] History of Past illness Narrative* Problem Noted Date Diagnosed Date Resolved Date Hematuria 03/31/2011 01/03/2017 Generalized abdominal pain 03/31/2011 1 03/05/2016 Right inguinal hernia 03/31/20112016 Dehydration 03/31/2011 01/03/2017 documented as of this encounter (statuses as of 11/21/2022) [facility] Diagnosis Primary hypertension- Primary Unspecified essential hypertension Bilateral hip pain Pain in joint, pelvic region and thigh Cervical radiculopathy Brachial neuritis or radiculitis nos Obesity, Class II, BMI 35-39.9 Obesity, unspecified Elevated glucose Other abnormal glucose Screening for colon cancer Special screening for malignant neoplasms, colon Encounter for immunization Need for other specified prophylactic vaccination against single bacterial disease Chronic pain of both shoulders Pain in joint, shoulder region ED (erectile dysfunction) of organic origin Impotence of organic origin [facility] Diagnosis Bilateral hip pain- Primary Pain in joint, pelvic region and thigh Cervical radiculopathy Brachial neuritis or radiculitis nos ED (erectile dysfunction) of organic origin Impotence of organic origin Encounter for immunization Need for other specified prophylactic vaccination against single bacterial disease Screening for colon cancer Special screening for malignant neoplasms, colon [facility] Diagnosis Essential hypertension Unspecified essential hypertension documented in this encounter [facility] note* Diagnosis Sinobronchitis- Primary Unspecified sinusitis (chronic) documented in this encounter [facility] note* Diagnosis Acute maxillary sinusitis, recurrence not specified- Primary documented in this encounter [facility] note* Diagnosis ED (erectile dysfunction) of organic origin- Primary Impotence of organic origin Essential hypertension Unspecified essential hypertension Eustachian tube dysfunction, bilateral Acute recurrent maxillary sinusitis Acute maxillary sinusitis documented in this encounter [facility] note* Diagnosis ED (erectile dysfunction) of organic origin- Primary Impotence of organic origin documented in this encounter [facility] note* Diagnosis ED (erectile dysfunction) of organic origin Impotence of organic origin documented in this encounter [facility] note* Diagnosis Essential hypertension Unspecified essential hypertension ED (erectile dysfunction) of organic origin Impotence of organic origin [facility] Diagnostic Procedure Only (Routine) - Closed Specialty Diagnoses / Procedures Referred By Ginna cooper Referred To Contact XR IMAGING Diagnoses Cervical radiculopathy Procedures XR CERV OTHER 4V AP/LAT/OBL RADEX SPINE CERVICAL 4 OR 5 VIEWS Dharmesh Richards APRN.COMPUTER PROGRAMMING PROFESSOR [id number] [place] [address] Xr Imaging Referral ID Status Reason Start Date Expiration Date V [facility] Requested Visits Authorized [id number] Closed Auto-Generate d Referral 09/24/2021 10/24/2022 1 1 * Diagnostic Procedure Only (Routine) - Closed Specialty Diagnoses / Procedures Referred By Patrickac t Referred To Contact XR IMAGING Diagnoses Bilateral hip pain Procedures XR HIP BILATERAL 5V PEL/AP/LAT EACH HIP RADEX HIPS BILATERAL WITH PELVIS MINIMUM 5 VIEWS Dharmesh Richards APRN.COMPUTER PROGRAMMING PROFESSOR [id number] [place] [address] Xr Imaging Referral ID Status Reason Start Date Expiration Date V isits Requested Visits Authorized [id number] Closed Auto-Generate d Referral 09/24/2021 10/24/2022 1 1 [facility] Reason for Referral Specialty Diagnoses / Procedures Referred By Ginna cooper Referred To Contact Ent - Otolaryngology Diagnoses Eustachian tube dysfunction, bilateral Acute recurrent maxillary sinusitis Procedures CONSULT TO ENT OFFICE/OUTPATIENT [facility] 60-74 MINUTES Dharmesh Richards APRN.CNP [id number] [place] [address] Referral ID Status Reason Start Date Expiration Date Visits Requested Visits Authorized [id number] Pending Review PCP Requested Referral 05/23/2022 05/23/2023 1 1 Specialty Diagnoses / Procedures Referred By Ginna cooper Referred To Contact Urology Diagnoses ED (erectile dysfunction) of organic origin Procedures CONSULT TO UROLOGY OFFICE/OUTPATIENT [facility] 60-74 MINUTES Dharmesh Richards APRN.CNP [id number] [place] [address] Referral ID Status Reason Start Date Expiration Date Visits Requested Visits Authorized [id number] Pending Review PCP Requested Referral 05/23/2022 05/23/2023 1 1 Summary Purpose Family History No Family History Records Found Advance Directives No Advanced Directives Records Found Additional Source Comments Source Comments (unrecognize d section and content) In the event this informatio n is protected by the Federal Confidentiality of Alcohol and Drug Abuse Patient Records regulations: The Federal rules restrict any use of the information to criminally investigate or prosecute any alcohol or drug abuse patient.[facility] event this information is protected by the Federal Confidentiality of Alcohol and Drug Abuse Patient Records regulations: The Federal rules restrict any use of the information to criminally investigate or prosecute any alcohol or drug abuse patient.[facility] Hospital[facility] the event this information is protected by the Federal Confidentiality of Alcohol and Drug Abuse Patient Records regulations: The Federal rules restrict any use of the information to criminally investigate or prosecute any alcohol or drug abuse patient.[facility] HospitalIn the event this information is protected by the Federal Confidentiality of Alcohol and Drug Abuse Patient Records regulations: The Federal rules restrict any use of the information to criminally investigate or prosecute any alcohol or drug abuse patient.[facility] HospitalIn the event this information is protected by the Federal Confidentiality of Alcohol and Drug Abuse Patient Records regulations: The Federal rules restrict any use of the information to criminally investigate or prosecute any alcohol or drug abuse patient.[facility] HospitalIn the event this information is protected by the Federal Confidentiality of Alcohol and Drug Abuse Patient Records regulations: The Federal rules restrict any use of the information to criminally investigate or prosecute any alcohol or drug abuse patient.[facility] HospitalIn the event this information is protected by the Federal Confidentiality of Alcohol and Drug Abuse Patient Records regulations: The Federal rules restrict any use of the information to criminally investigate or prosecute any alcohol or drug abuse patient.[facility] HospitalIn the event this information is protected by the Federal Confidentiality of Alcohol and Drug Abuse Patient Records regulations: The Federal rules restrict any use of the information to criminally investigate or prosecute any alcohol or drug abuse patient.[facility] HospitalIn the event this information is protected by the Federal Confidentiality of Alcohol and Drug Abuse Patient Records regulations: The Federal rules restrict any use of the information to criminally investigate or prosecute any alcohol or drug abuse patient.[facility] HospitalIn the event this information is protected by the Federal Confidentiality of Alcohol and Drug Abuse Patient Records regulations: The Federal rules restrict any use of the information to criminally investigate or prosecute any alcohol or drug abuse patient.[facility] HospitalIn the event this information is protected by the Federal Confidentiality of Alcohol and Drug Abuse Patient Records regulations: The Federal rules restrict any use of the information to criminally investigate or prosecute any alcohol or drug abuse patient.[facility] Reason for Visit (unrecogniz ed section and content) Reason Comments Follow Up Reason Onset Date Comments Refill Request 12/30/2021 Reason Comments Nasal Congestion Cough, x2 wks, denie d fever, chills. Reason Comments Nasal Congestion Pt reported bilatera l ear pain, x2 mths Reason Comments Follow Up For ED Reason Comments Appointment Reason Comments New Patient ED Reason Comments Consult Erectile Dysfunction Specialty Diagnoses / Procedures Referred By Ginna cooper Referred To Contact Urology Diagnoses ED (erectile dysfunction) of organic origin Procedures CONSULT TO UROLOGY OFFICE/OUTPATIENT [facility] MDM 60-74 MINUTES Dharmesh Richards, SUPERVISOR DENTAL LABORATORY.COMPUTER PROGRAMMING PROFESSOR [address] [place] [address] Referral ID Status Reason Start Date Expiration Date Visits Requested Visits Authorized [id number] Pending Review PCP Requested Referral 05/23/2022 05/23/2023 1 1 Reason Onset Date Comments Refill Request 11/19/2022 Care Teams (unrecognized sec tion and content) Educational Technology Specialist Relationship Specialty Start Date End Date Lukasz Vickers MD [address] [facility] [place] [address] PCP - General Family Medicine 02/26/15 Educational Technology Specialist Relationship Specialty Start Date End Date Lukasz Vickers MD [address] [facility] [place] [address] PCP - General Family Medicine 02/26/15 Educational Technology Specialist Relationship Specialty Start Date End Date Lukasz Vickers MD [address] [facility] [place] [address] PCP - General Family Medicine 02/26/15 Educational Technology Specialist Relationship Specialty [place] [address] [place] [address], [place] [address] PCP - General Family [facility] 02/26/15 Educational Technology Specialist Relationship Specialty Start Date End Date Lukasz Vickers MD [address] [facility] [place] [address] PCP - General Family [facility] 02/26/15 Educational Technology Specialist Relationship Specialty Start [place] [address] [place] [address], [place] [address] PCP - General Family Medicine 02/26/15 Educational Technology Specialist Relationship Specialty [place] [address] [place] [id number] PCP - General Family Medicine 02/26/15 (unrecognized sect ion and content) No Status Records Found INFORMATION SOURCE (unrecogn ized section and content) FOR RECORDS PERTAINING TO PATIENTS WHO ARE OR HAVE BEEN ENROLLED IN A CHEMICAL DEPENDENCY/SUBSTANCEABUSE PROGRAM, SOME INFORMATION MAY BE OMITTED. This clinical summary was aggregated from multiple sources. Caution should be exercised in using it in the provision of clinical care. This summary normalizes information from multiple sources, and as a consequence, information in this document may materially change the coding, format and clinical context of patient data. In addition, data may be omitted in some cases. CLINICAL DECISIONS SHOULD BE BASED ON THE PRIMARY CLINICAL RECORDS. [facility] [employer] [facility]. provides no warranty or guarantee of the accuracy or completeness of information in this document.
--- NOTE | 2023-03-06 20:27 | EDS_ITS ---
HPI History of Present Illness Chief Complaint: Chest Pain Narrative Narrative: [facility] 52 [facility] Medical History (Updated 03/06/23 @ 19:31 by Maxim Mayberry) HTN (hypertension) Home Medications lisinopril 20 mg-hydrochlorothiazide 25 mg tablet tab 03/06/23 [History Last Taken 03/06/23] Allergy/AdvReac Type Severity Reaction Status Date / Time No Known Allergies Allergy Verified 03/06/23 19:05 Social History Smoking Status: Never smoker EXAM Physical Exam Const Vital Signs: 03/06/23 19:05 03/06/23 19:31 03/06/23 20:05 Temperature 97.6 F L 101.2 F H Temperature Source Temporal Oral Pulse Rate 147 H Respiratory Rate 18 Blood Pressure 157/113 H Blood Pressure Mean 127 Pulse Ox 97 Oxygen Delivery Method Room Air Room Air [facility] Lab Data Labs: Laboratory Results - last 24 hr 03/06/23 03/06/23 19:18 21:37 WBC 7.4 RBC 6.41 H Hgb 18.6 H* Hct 55.8 H MCV 87.1 MCH 29.0 MCHC 33.3 RDW Std Deviation 41.1 RDW Coeff of Danilo 13.0 Plt Count 325 MPV 8.7 Immature Gran % (Auto) 0.100 Neut % (Auto) 67.1 Lymph % (Auto) 18.5 L Marinette % (Auto) 12.2 H Eos % (Auto) 1.0 Baso % (Auto) 1.1 H Absolute Neuts (auto) 4.9 Absolute Lymphs (auto) 1.36 Nucleated RBC % 0 Diff Path Review May foll Platelet Estimate ADEQUATE RBC Morphology N CHROM Anisocytosis RARE Macrocytosis RARE D-Dimer Quant (PE/DVT) 0.58 H* Sodium 135 L Potassium 3.9 Chloride 100 Carbon Dioxide 31.0 Anion Gap 4 L BUN 17 Creatinine 1.30 Estim Creat Clear Calc 69.19 Est GFR (MDRD) Af Amer 74 Est GFR (MDRD) Non-Af 61 BUN/Creatinine Ratio 13.1 Glucose 121 H Calcium 10.2 H Troponin I High Sens 4 5 Radiography Diagnostic Testing: Clinical Impression(s) from Imaging Studies Chest X-Ray 03/06/23 19:20 IMPRESSION: No acute cardiopulmonary disease, stable study in the interval. Electronically Signed: Hanna Guerrero MD at 19:36 EST , Chest CTA 03/06/23 21:12 IMPRESSION: Negative CTA chest examination, without a demonstrated pulmonary embolism or arterial dissection. Measured minimal multilobar and predominantly mid lower lung atelectasis, otherwise no focal infiltrate or pleural effusion seen. No pneumothorax. Electronically Signed: Hanna Guerrero MD at 22:26 EST , Discharge Plan Triage Chief Complaint: Chest Pain ED Midlevel Provider: Dionte Arndt ED Provider: Abdias Bartholomew Dx/Rx/DC Orders Instructions: ED Chest Pain, Uncertain Cause, ED Viral Syndrome (Adult) Prescriptions: No Action lisinopril-hydrochlorothiazide 20-25 mg tablet Patient Comments: TAKE 1 TABLET BY MOUTH EVERY DAY IN THE MORNING Primary Care Provider: Marlon Carlson Referrals: Marlon Carlson MD [Primary Care Provider] - Disposition Disposition: Home, Self Care
[2023-03-06] MEDS: 0.9% Normal Saline (1000mL) 1,000 ML 1000 ML IV (20:32)
[2023-03-06] MEDS: Acetaminophen 500 MG Tablet 1000 MG PO (20:32)
[2023-03-06] MEDS: Ketorolac 15 MG/ML Vial IV (20:32)
--- NOTE | 2023-03-06 20:45 | EDS_ITS ---
HPI <JULIAN Barnhart - Last Filed: 03/06/23 21:15> History of Present Illness Chief Complaint: Chest Pain Narrative Narrative: Patient is a 52-year-old male with history of hypertension who presents to the emergency department for feeling of body aches, chest pressure that started around 5 PM today. Patient denies any chest pain or shortness of breath. Patient dates he felt palpitations. He states he does have a dry cough however no production. He denies any nausea or vomiting. PFSH <JULIAN Barnhart - Last Filed: 03/06/23 21:15> [facility] Medical History (Updated 03/06/23 @ 19:31 by Maxim Mayberry) HTN (hypertension) Home Medications lisinopril 20 mg-hydrochlorothiazide 25 mg tablet tab 03/06/23 [History Last Taken 03/06/23] Allergy/AdvReac Type Severity Reaction Status Date / Time No Known Allergies Allergy Verified 03/06/23 19:05 Social History Smoking Status: Never smoker ROS <JULIAN Barnhart - Last Filed: 03/06/23 21:15> ROS ED ROS Narrative Constitutional: Negative for fever,, weight loss, weakness. Positive for chills Eyes: Negative for vision loss, vision change, double vision ENT: Negative for any sore throat, ear pain, congestion Cardiovascular: Negative for any chest pain, tightness, palpitations Respiratory: Negative for any sputum production, hemoptysis, dyspnea, dyspnea on exertion, orthopnea. Positive for cough Gastrointestinal: Negative for any abdominal pain, nausea, vomiting, diarrhea, constipation, blood in stool, blood in vomit : Negative for any urinary frequency, dysuria, retention, blood in urine Muscle skeletal: Negative for any arthralgias, neck pain, back pain. Positive for myalgias Neurological: Negative for any headache, syncope, paresthesias, dizziness Skin: Negative for any rashes, lumps, itching, abrasions, lacerations Psychiatric: Negative for any depression, anxiety, stress, suicidal ideation, homicidal ideation Hematologic: Negative for any easy bruising, excessive bruising, easy bleeding Allergies: Negative for any eczema, hives, rash EXAM <JULIAN Barnhart - Last Filed: 03/06/23 21:15> Physical Exam Narrative Exam Narrative: Vital signs reviewed. Is alert and orient x 4. Patient did look slightly flushed, temperature showed an oral temp of 101.8. HEET: Head normocephalic atraumatic, TMs clear bilaterally. Posterior pharynx is clear, dry mucous membranes. Nares clear bilaterally. Neck: Supple with no lymphadenopathy or tenderness. No signs of meningismus. Cardiac: Tachycardic rate no murmurs gallops or rubs, equal peripheral pulses bilaterally. Respiratory: Lungs clear to auscultation bilaterally. No chest tenderness. Abdomen: Soft, nontender, nondistended. No abdominal bruit or pulsatile masses. No hepatosplenomegaly Extremities: No peripheral edema, no signs of gross trauma or deformity. Active full range of motion of all extremities. Neuro: Cranial nerves II through XII intact, no focal neurological deficits. Skin: Clean dry and intact with no rash, purpura, petechiae, vesicles or pustules. Backs/flank: No CVA tenderness, no midline spinal tenderness, no deformity. Psych: Normal mood and affect. No SI, HI or acute psychosis. Const Vital Signs: 03/06/23 19:05 03/06/23 19:31 03/06/23 20:05 Temperature 97.6 F L 101.2 F H Temperature Source Temporal Oral Pulse Rate 147 H Respiratory Rate 18 Blood Pressure 157/113 H Blood Pressure Mean 127 Pulse Ox 97 Oxygen Delivery Method Room Air Room Air <Dr. Abdias Bartholomew DO - Last Filed: 03/06/23 22:47> Physical Exam Const Vital Signs: 03/06/23 19:05 03/06/23 19:31 03/06/23 20:05 Temperature 97.6 F L 101.2 F H Temperature Source Temporal Oral Pulse Rate 147 H Respiratory Rate 18 Blood Pressure 157/113 H Blood Pressure Mean 127 Pulse Ox 97 Oxygen Delivery Method Room Air Room Air [facility]UL[facility] <JULIAN Barnhart - Last Filed: 03/06/23 21:15> JULIO Lab Data Labs: Laboratory Results - last 24 hr 03/06/23 03/06/23 19:18 21:37 WBC 7.4 RBC 6.41 H Hgb 18.6 H* Hct 55.8 H MCV 87.1 MCH 29.0 MCHC 33.3 RDW Std Deviation 41.1 RDW Coeff of Danilo 13.0 Plt Count 325 MPV 8.7 Immature Gran % (Auto) 0.100 Neut % (Auto) 67.1 Lymph % (Auto) 18.5 L Mora % (Auto) 12.2 H Eos % (Auto) 1.0 Baso % (Auto) 1.1 H Absolute Neuts (auto) 4.9 Absolute Lymphs (auto) 1.36 Nucleated RBC % 0 Diff Path Review May foll Platelet Estimate ADEQUATE RBC Morphology N CHROM Anisocytosis RARE Macrocytosis RARE D-Dimer Quant (PE/DVT) 0.58 H* Sodium 135 L Potassium 3.9 Chloride 100 Carbon Dioxide 31.0 Anion Gap 4 L BUN 17 Creatinine 1.30 Estim Creat Clear Calc 69.19 Est GFR (MDRD) Af Amer 74 Est GFR (MDRD) Non-Af 61 BUN/Creatinine Ratio 13.1 Glucose 121 H Calcium 10.2 H Troponin I High Sens 4 5 Radiography Diagnostic Testing: Clinical Impression(s) from Imaging Studies Chest X-Ray 03/06/23 19:20 IMPRESSION: No acute cardiopulmonary disease, stable study in the interval. Electronically Signed: Hanna Guerrero MD at 19:36 EST Reading Location ID and State: [place] / [employer] , Service support , Chest CTA 03/06/23 21:12 IMPRESSION: Negative CTA chest examination, without a demonstrated pulmonary embolism or arterial dissection. Measured minimal multilobar and predominantly mid lower lung atelectasis, otherwise no focal infiltrate or pleural effusion seen. No pneumothorax. Electronically Signed: Hanna Guerrero MD at 22:26 EST , EKG Sinus tachycardia: Attestation: I personally reviewed and interpreted this EKG as follows: Comments: Sinus tachycardia, rate 136 bpm, NH interval 150 ms, QRS duration 86 ms, no acute ST elevation, no acute infarct Treatment and Re-Evaluation :: Patient appears to be no obvious respiratory distress, vital signs are stable other than tachycardia. Patient is febrile here. Differential diagnosis includes ACS, [place], pneumonia, viral syndrome such as influenza, COVID-19. Patient received a cardiac workup, patient's CBC showed hemoconcentration with hemoglobin 18.6, red blood cells of 6.41, D-dimer was elevated 0.58, chemistry showed normal electrolytes, troponin was negative for, repeat will be drawn. Patient will receive a CT scan of the chest to rule out any pulmonary embolus. Chest x-ray two-view was unremarkable. Patient was given IV fluids, Toradol, Tylenol. Patient be reevaluated. All radiologic examinations were read, reviewed by the emergency department attending. From these reads, a plan of care will be put in place. <Dr. Abdias Bartholomew, DO - Last Filed: 03/06/23 22:47> [facility] Narrative Medical decision making narrative: Patient appears to be no obvious respiratory distress, vital signs are stable other than tachycardia. Patient is febrile here. Differential diagnosis includes ACS, IN, pneumonia, viral syndrome such as influenza, COVID-19. Patient received a cardiac workup, patient's CBC showed hemoconcentration with hemoglobin 18.6, red blood cells of 6.41, D-dimer was elevated 0.58, chemistry showed normal electrolytes, troponin was negative for, repeat will be drawn. Patient will receive a CT scan of the chest to rule out any pulmonary embolus. Chest x-ray two-view was unremarkable. Patient was given IV fluids, Toradol, Tylenol. Patient be reevaluated. All radiologic examinations were read, reviewed by the emergency department attending. From these reads, a plan of care will be put in place. This patient was seen with a PA/ACCOUNTING COORDINATOR Individually assessed they patient including history and physical. I have reviewed everything on the chart that is available and agree with the documentation provided by the PA/ACCOUNTING COORDINATOR including discussion about the assessment, treatment plan, discussion, and return precautions. Patient presenting with chest pain as well as viral symptoms. His workup is ultimately normal with a white blood count 7.4. Hemoglobin is slightly constipated 8.6. Platelets are normal at 325. EKG showed a sinus tachycardia at a rate of 136 bpm however the patient was found to be febrile. He was given IV fluids, Tylenol, Toradol. COVID, influenza, RSV were negative. D-dimer was elevated so CTA was performed was also negative. Delta troponin is 5. Given this his workup is ultimately negative. I suspect he likely has something viral since he has a fever. Reevaluation at 10:45 PM we went over all of his test results. His CTA was negative. His fevers improved. Patient feels very good he is laughing and smiling in the room. He states his symptoms are all gone. He states this was the first time he had a fever tonight. He also states that he is hungry and is can stop at [employer] on the way home. I asked him if anything for nausea and he states that he has not. I recommended treatment with Tylenol and ibuprofen at home for fevers and pain. Offered viral respiratory panel but the patient declined. He stable for discharge at this point Impression: 1. Chest pain 2. Viral syndrome 3. Tachycardia resolved 4. Febrile illness Lab Data Attestation: I reviewed the patient's lab results. Labs: Laboratory Results - last 24 hr 03/06/23 03/06/23 19:18 21:37 WBC 7.4 RBC 6.41 H Hgb 18.6 H* Hct 55.8 H MCV 87.1 MCH 29.0 MCHC 33.3 RDW Std Deviation 41.1 RDW Coeff of Danilo 13.0 Plt Count 325 MPV 8.7 Immature Gran % (Auto) 0.100 Neut % (Auto) 67.1 Lymph % (Auto) 18.5 L Mora % (Auto) 12.2 H Eos % (Auto) 1.0 Baso % (Auto) 1.1 H Absolute Neuts (auto) 4.9 Absolute Lymphs (auto) 1.36 Nucleated RBC % 0 Diff Path Review May foll Platelet Estimate ADEQUATE RBC Morphology N CHROM Anisocytosis RARE Macrocytosis RARE D-Dimer Quant (PE/DVT) 0.58 H* Sodium 135 L Potassium 3.9 Chloride 100 Carbon Dioxide 31.0 Anion Gap 4 L BUN 17 Creatinine 1.30 Estim Creat Clear Calc 69.19 Est GFR (MDRD) Af Amer 74 Est GFR (MDRD) Non-Af 61 BUN/Creatinine Ratio 13.1 Glucose 121 H Calcium 10.2 H Troponin I High Sens 4 5 Radiography Diagnostic Testing: Clinical Impression(s) from Imaging Studies Chest X-Ray 03/06/23 19:20 IMPRESSION: No acute cardiopulmonary disease, stable study in the interval. Electronically Signed: Hanna Guerrero MD at 19:36 EST , Chest CTA 03/06/23 21:12 IMPRESSION: Negative CTA chest examination, without a demonstrated pulmonary embolism or arterial dissection. Measured minimal multilobar and predominantly mid lower lung atelectasis, otherwise no focal infiltrate or pleural effusion seen. No pneumothorax. Electronically Signed: Hanna Guerrero MD at 22:26 EST , Discharge Plan Triage Chief Complaint: Chest Pain ED Midlevel Provider: Dionte Arndt ED Provider: Abdias Bartholomew Dx/Rx/DC Orders Prescriptions: No Action lisinopril-hydrochlorothiazide 20-25 mg tablet Patient Comments: TAKE 1 TABLET BY MOUTH EVERY DAY IN THE MORNING Primary Care Provider: Marlon Carlson Referrals: Marlon Carlson MD [Primary Care Provider] -
[2023-03-06 20:52] LABS: D-Dimer Quantitative (DVT/PE) 0.58 FEU/ug/m (0.27-0.49)
[2023-03-06 21:00] VITALS: RESP 16
--- NOTE | 2023-03-06 21:12 | CT_ITS ---
STUDY: CTA CHEST REASON FOR EXAM: Male, 52 years old. elevated dimer RADIATION DOSAGE (If Supplied By Facility): CTDIvol = ( 12.66 ) mGy, DLP = ( 586.95 ) mGycm TECHNIQUE: The examination was performed with the intravenous administration of IV 100mL Isovue-370. Post-processing of the angiographic images was performed, with multiplanar reformation and 3D reconstruction. Individualized dose optimization techniques were used for this CT. COMPARISON: None. FINDINGS: Suboptimal exam due to partially missed bolus. Normal enhancement of the main pulmonary artery and right and left pulmonary arteries. Normal enhancement of the bilateral peripheral pulmonary arteries. There is no demonstrated pulmonary embolism. Normal thoracic aorta and visualized great vessels. There is no demonstrated aortic dissection. Normal heart and pericardium. Normal mediastinum. Normal hilar regions. Normal visualized trachea and bronchi. The lungs are well expanded. Areas of mild atelectasis involving the bilateral lower lobe, right middle lobe and lingular lobe. Otherwise normal lung parenchyma with no focal consolidation to suggest infiltrate. Normal pleura. Normal chest wall structures. There are degenerative changes of thoracic spine. Upper abdomen reveals multiple gallstones otherwise unremarkable gallbladder and biliary system. There is a low-attenuation structure within the posterior aspect of the right liver lobe junction with the caudate lobe measuring 1.7 cm compatible with a liver cyst. Remainder of the visualized upper abdominal viscera are unremarkable. CT/CTA Chest W/WO Contrast IMPRESSION: Negative CTA chest examination, without a demonstrated pulmonary embolism or arterial dissection. Measured minimal multilobar and predominantly mid lower lung atelectasis, otherwise no focal infiltrate or pleural effusion seen. No pneumothorax. Electronically Signed: Hanna Guerrero MD at 22:26 EST ,
[2023-03-06 21:22] LABS: Reflex Troponin-HS? (from REC) Y
[2023-03-06 22:00] VITALS: BP 156/94
[2023-03-06 22:21] LABS: Troponin-I HS 5 pg/mL (3.0-78.0)
[2023-03-06 23:00] VITALS: RESP 18
[2023-03-08 14:11] LABS: Pathologist Review Reviewed
== END 2023-03-06 23:04 | disposition home or self-care (01) ==
PROVIDERS: Nurse Practitioner; Emergency Provider Student in an Organized Health Care Education/Training Program; PCP Family Medicine; Visit Provider Student in an Organized Health Care Education/Training Program
DX: R07.9 Chest pain, unspecified (principal); B34.9 Viral infection, unspecified; I10 Essential (primary) hypertension; Z79.899 Other long term (current) drug therapy; R00.0 Tachycardia, unspecified; R50.9 Fever, unspecified
CPT/HCPCS: 71045; 71275; 80048; 84484; 85025; 85379; 87631; 93005; 96361; 96374; 99284; J7030; Q9967; A4216

== ENCOUNTER 2024-11-14 20:25 | Emergency (ER) | payer OTHER, SELFPAY ==
[2024-11-14 20:25] VITALS: BP 126/90; PULSE 112; RESP 17; TEMP 37.2; O2SAT 98; BMI 37.6
--- NOTE | 2024-11-14 20:36 | EKG12_ITS ---
Test Reason : CP Blood Pressure : */* mmHG Vent. Rate : 101 BPM Atrial Rate : 101 BPM P-R Int : 158 ms QRS Dur : 94 ms QT Int : 332 ms P-R-T Axes : 20 -30 31 degrees QTcB Int : 430 ms Sinus tachycardia Left axis deviation Abnormal ECG Confirmed by ODIN PRAKASH MD ([id number]), general expeditor MAME BUCHANAN ([id number]) on 11/15/2024 10:48:47 AM Referred By: VEENA Confirmed By: ODIN PRAKASH MD
--- NOTE | 2024-11-14 21:00 | RAD_ITS ---
PROCEDURE: CHEST PA AND LATERAL 11/14/2024 REASON FOR EXAM: CHEST PAIN TECHNIQUE: Procedure Code: RADCXR Modality: DX Procedure: CHEST PA AND LATERAL COMPARISON: 03/06/2023 FINDINGS: Lungs/Pleura: Clear. No pneumothorax or pleural effusion. Heart/Mediastinum: Cardiomegaly. No significant vascular congestion. Bones/Soft tissues: Multilevel degenerative changes of the spine with DISH. RAD/Chest PA and Lateral IMPRESSION: Cardiomegaly. No acute pulmonary disease. Reading Location: [facility]
[2024-11-14 21:02] LABS: Hematocrit 46.8 % (40-54); Hemoglobin 16.2 g/dL (13.0-16.5); Immature Granulocytes Count 0.030 X10^3/uL (0.0-0.0); Mean Corp Hgb Conc 34.6 g/dL (32-36); Mean Corpuscular Volume 88.0 fL (80-94); Mean Platelet Vol. 8.9 fl (6.2-12.0); NRBC Flagged by Analyzer 0 % (0-5); Platelet Count 384 K/mm3 (150-450); RBC Distribution Width CV 12.6 % (11.6-14.6); RBC Distribution Width SD 40.7 fl (35.1-43.9); Red Blood Count 5.32 M/mm3 (4.6-6.2); White Blood Count 10.7 K/mm3 (4.4-11.0)
--- NOTE | 2024-11-14 21:09 | ED.VIS.CHEST ---
HPI History of Present Illness Chief Complaint: Chest Pain Informant: patient and spouse/S.O. Onset/Context/Timing Onset: Days (Started on Monday.) Activity at onset: gradual Timing: Intermittent Quality: Positive for - (Pleuritic bilateral rib cage pain.) Location: Right Chest and Left Chest Current Severity: Mild Maximum Severity: Mild Worsened By: Breathing Relieved By: Nothing Associated Symptoms: Positive for Nausea, Dyspnea and - (Diarrhea.) Narrative Narrative: 54-year-old male history of hypertension. Since Monday he just had been feeling well. He said bilateral rib cage pain primarily with deep breathing. No history of DVT or PE. No recent travel, surgery immobilization. No hemoptysis or calf pain. No family history of clots. He is also had some mild nausea and diarrhea since Monday. Denies any significant [place] pain. No fever. No dysuria. No melena. He says he feels weak also. No cardiac history. Prior Similar Symptoms: No Recent Illness/Hospitalization: No CVD Risk Factors: Positive for Hypertension; Negative for Diabetes or Hypercholesterolemia PE Risk Factors: Negative for Recent Travel/Surgery, Recent Immobilization, Prior DVT or PE, Cancer or OCP + Smoking + >/=35 TAD Risk Factors: Negative for Marfan's Syndrome [facility] Medical History HTN (hypertension) Home Medications ?Medication ?Instructions ?Recorded ?Last Taken ?Type lisinopril 10 1 tab PO DAILY 11/14/24 Unknown History mg-hydrochlorothiazide 12.5 mg tablet Allergy/AdvReac Type Severity Reaction Status Date / Time No Known Allergies Allergy Verified 11/14/24 20:28 Social History Smoking Status: Never smoker ROS ROS ED ROS Narrative Pleuritic chest pain. Nausea and diarrhea. Constitutional Constitutional ED: Denies chills or fever(s) Eyes Eyes: Reports none ENT ENT ED: Denies ear pain Cardiovascular Cardiovascular: Reports chest pain Respiratory/Chest Respiratory/Chest: Reports dyspnea Gastrointestinal Gastrointestinal: Reports diarrhea and nausea; Denies abdominal pain, constipation, melena or vomiting Genitourinary Genitourinary ED: Denies dysuria or hematuria Musculoskeletal Musculoskeletal: Denies arthralgias or back pain Integumentary Denies abscess Neurologic Neurologic: Denies headache(s) Psychiatric Psychiatric: Denies anxiety or depression Endocrine Endocrinology: Denies cold intolerance Hematologic/Lymphatic Hematologic/Lymphatic: Denies easy bleeding, easy bruising or lymphadenopathy Allergic/Immunologic Allergic/Immunologic ED: Denies mouth swelling, tongue swelling or urticaria EXAM Physical Exam Narrative Exam Narrative: 54-year-old male sitting upright in bed. Vital signs stable afebrile does not look septic toxic no acute distress. in the room. H EENT exam pupils round react light. Moist mutes members. Neck nontender no JVD no lymphadenopathy. Lungs good auscultation bilaterally. Heart tachycardic 110 no murmur. Chest wall ribs nontender. Abdomen soft nontender. No right upper quadrant pain. No reproducible tenderness. No peritoneal signs. Back nontender. Moving all 4 extremities. 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 Calves nontender no edema no cords. Equal symmetric radial pulses. Dorsi plantarflexion intact. Back nontender. Neurologically is awake alert. Answering questions following commands. Const Vital Signs: 11/14/24 20:25 11/14/24 20:33 11/14/24 20:37 Temperature 98.9 F Temperature Source Oral Pulse Rate 112 H Respiratory Rate 17 Respiratory Effort Normal Non-Labored Blood Pressure 126/90 H Blood Pressure Mean 102 Pulse Ox 98 Oxygen Delivery Method Room Air Room Air 11/14/24 21:25 11/14/24 22:00 11/14/24 23:00 Temperature Temperature Source Pulse Rate 96 89 86 Respiratory Rate 25 H 18 16 Respiratory Effort Blood Pressure 119/92 H 123/84 H 144/104 H Blood Pressure Mean 101 97 117 Pulse Ox 96 97 98 Oxygen Delivery Method Room Air Room Air Positive well nourished and well developed; Negative for cachectic, contractures or unkempt General Appearance ED: well developed and NAD; Negative for unkempt, cachectic, contractures or pallor Nutritional Appearance: Negative for cachectic HEENT Reports moist mucous membranes normocephalic and atraumatic Eyes PERRL and EOMs intact bilaterally Neck no lymphadenopathy, supple and no JVD Chest Wall inspection of chest normal and palpation of chest normal Resp normal respiratory effort and clear to auscultation bilaterally Cardio regular rhythm, S1 normal heart sound, S2 normal heart sound and no murmurs; Negative for regular rate Rate: tachycardic Peripheral Pulses: pulses 2+ throughout GI normal to inspection, nondistended, normoactive bowel sounds, soft to palpation, non-tender, non-distended and no masses Back/Spine no CVA tenderness and no thoracic nor lumbar tenderness Extremity normal to inspection General Extremety ED: Negative for edema, pulses abnormal or tenderness General Extremity: Negative for edema or pulses abnormal Neuro oriented x3 and CN's II-XII intact bilaterally Sensorium / Orientation: awake, alert, oriented to person, oriented to place and oriented to time Motor Exam: strength 5/5 throughout Psych mental status grossly normal Appearance: Negative for unkempt Mood & Affect: Negative for depressed, anxious or tearful Skin no rashes or lesions noted and no wounds General Skin Exam: Negative for jaundice or pallor Rashes: No rashes noted Trauma: Negative for abrasion or laceration MDM MDM MDM Narrative Medical decision making narrative: 54-year-old male atypical chest pain pleuritic in nature. No history of DVT or PE or risk factors. Cardiac workup with a D-dimer. Clinically do not appear to be a dissection. There is no history of any type of trauma for musculoskeletal pain. Exam patient is doing well at around 10:30 and also 11:25 PM. His repeat 2-hour troponin is less than 6. Patient will be discharged home with outpatient follow-up. Chest pain uncertain etiology. History & Record Review Additional record(s) reviewed:: Prior inpatient record, Prior outpatient record and Prior ED visit Lab Data Attestation: I reviewed the patient's lab results. Lab results narrative: CBC unremarkable. White count of 10. H&H is 16 and 46. Platelets 384. Chemistries show sodium 139. Gap 13. BUN and creatinine of 16 and 1. Glucose 104. Initial troponin 10. D-dimer is negative at less than 0.27. Chest x-ray unremarkable. Labs: Laboratory Results - last 24 hr 11/14/24 11/14/24 20:55 23:00 WBC 10.7 RBC 5.32 Hgb 16.2 Hct 46.8 MCV 88.0 MCH 30.5 MCHC 34.6 RDW Std Deviation 40.7 RDW Coeff of Danilo 12.6 Plt Count 384 MPV 8.9 Immature Gran % (Auto) 0.300 Neut % (Auto) 68.6 Lymph % (Auto) 20.7 [place] % (Auto) 8.3 Eos % (Auto) 1.5 Baso % (Auto) 0.6 Absolute Neuts (auto) 7.4 Absolute Lymphs (auto) 2.21 Nucleated RBC % 0 D-Dimer Quant (PE/DVT) < 0.27 L Sodium 139 Potassium 3.5 Chloride 101 Carbon Dioxide 24.5 Anion Gap 13 BUN 16 Creatinine 1.01 Estim Creat Clear Calc 108.77 Est GFR (MDRD) Non-Af 87 BUN/Creatinine Ratio 15.6 Glucose 104 H Calcium 9.5 Troponin T High Sens 10 Troponin T Hi Sens 2 Hr < 6 Radiography Chest X-Ray - ED: 2 View, Read by ED Physician, Normal, Heart, Lungs, Mediastinum, Bony Structures, No Acute Disease and Chronic Changes Diagnostic Testing: Clinical Impression(s) from Imaging Studies Chest X-Ray 11/14/24 21:00 IMPRESSION: Cardiomegaly. No acute pulmonary disease. Reading Location: [facility] Chest x-ray, 2 views, AP and lateral, interpreted by myself shows normal cardiac silhouette. Normal mediastinum. Normal aorta. Normal lung anaya. No pneumonia. No pneumothorax. No effusions. Chronic changes. Rhythm Strip Rhythm Strip: Sinus Tach Rate: 101 Ectopy: None EKG Initial EKG: Attestation: I personally reviewed and interpreted this EKG as follows: Interpretation: Sinus Tachycardia Comments: CT sinus tachycardia rate of 101 no acute signs of TX or ischemia. Discharge Plan Triage Chief Complaint: Chest Pain ED Provider: Charles Noonan Dx/Rx/DC Orders Clinical Impression: Chest pain Instructions: ED Chest Pain, Uncertain Cause Prescriptions: No Action lisinopril-hydrochlorothiazide 10-12.5 mg tablet 1 tab PO DAILY Primary Care Provider: Marlon Carlson Referrals: Marlon Carlson MD [Primary Care Provider, Family Practice] - 3-5 Days Activity Restrictions/Additional Instructions: No signs of this being a heart attack nor blood clot. Plenty of fluids and rest. Follow-up with your doctor. Return to the emergency department if you are feeling worse. Print Language: Ukrainian Disposition Disposition: Home, Self Care
[2024-11-14 21:22] LABS: Anion Gap 13 (5-15); BUN 16 mg/dL (4-19); BUN/Creat Ratio 15.6 RATIO (10-20); Calcium,Total 9.5 mg/dL (7.6-11.0); Carbon Dioxide 24.5 mmol/L (21.0-32.0); Chloride 101 mmol/L (98-108); Estimated Creatinine Clearance 108.77 ml/min (50-250); Glucose 104 mg/dL (70-99); Potassium 3.5 mmol/L (3.3-5.1); Troponin T High Sensitivity 10 ng/L (<=22)
--- OUTSIDE RECORDS SUMMARY | 2024-11-14 21:22 | XMS RPT_ITS | CCD ---
Author Organization [facility] Care Team Providers Care Speed Belt Sander Tender Name Role Phone Lukasz Vickers MD Primary Care Provider Edy Cervantes Attending Unavailable Edy Cervantes Admitting Unavailable LUKASZ VICKERS Primary Care Unavailable Lukasz Vickers MD Primary Care Provider Lukasz Vickers MD Primary Care Provider Tannhof BIOCHEMICAL DEVELOPMENT ENGINEER.Marilee SAMAYOA Unavailable Adal BIOCHEMICAL DEVELOPMENT ENGINEER.Lui SAMAYOA Unavailable GINA KOROMA Attending Unavailable LUKASZ VICKERS Primary Care Unavailable LUI RICHARDS Attending Unavailable LUKASZ VICKERS Primary Care Unavailable LUI RICHARDS Attending Unavailable LUKASZ VICKERS Primary Care Unavailable Ceciliahoalana BIOCHEMICAL DEVELOPMENT ENGINEER.Marilee SAMAYOA Unavailable Allergies Allergy Classification Reported Allergen(s) Allergy Type Date of Onset Reaction(s) Facility Acetaminophen / HYDROcodone (1 source) Acetaminophen / HYDROcodone Drug Allergy 03-31-2011 GI Upset [facility] (20 sources) Acetaminophen / HYDROcodone; Translations: [HYDROCODONE-ACETA MINOPHEN] Drug Allergy 03-31-2011 GI Upset [facility] Medications Current Medications Medication Drug Class(es) Dates Sig (Normalized) Sig (Original) amLODIPine 5 mg oral tablet (17 sources) Dihydropyridine Calcium Channel Ryan Start: 04-19-2024 take 1 tablet by mouth once daily amLODIPine (NORVASC) 5 mg tablet Indications: Primary hypertension Take 1 tablet by mouth once daily. 90 tablet 3 04/19/2024 Active Start: 03-10-2023 End: 04-19-2024 take 1 tablet by mouth once daily amLODIPine (NORVASC) 5 mg tablet Indications: Primary hypertension Take 1 tablet by mouth once daily. 90 tablet 3 10/24/2023 04/19/2024 Discontinued Comment on above: Take 1 tablet by gaurang once daily. amoxicillin 875 mg / clavulanate 125 mg oral tablet (2 sources) Penicillin-class Antibacterial Start: End: take 1 tablet by mouth twice daily amoxicillin-clavulan ic acid (AUGMENTIN) 875-125 mg per tablet Take 1 tablet by mouth twice daily for 10 days. 20 tablet 0 05/15/2022 05/25/2022 Active Comment on above: Take 1 tablet by gaurang twice daily for 10 days. doxycycline monohydrate 100 mg oral tablet (1 source) Tetracycline-class Drug Start: End: take 1 tablet by mouth twice daily doxycycline monohydrate 100 mg tablet Indications: Sinobronchitis Take 1 tablet by mouth twice daily for 7 days. 14 tablet 0 03/18/2022 03/25/2022 Active Comment on above: Take 1 tablet by gaurang twice daily for 7 days. hydroCHLOROthiazide 12.5 mg / lisinopril 10 mg oral tablet (20 sources) Thiazide Diuretic, Angiotensin Converting Enzyme Inhibitor Start: take 10-12.5 mg by mouth once lisinopril-hydroCHLO ROthiazide (ZESTORETIC) 10-12.5 mg per tablet Indications: Primary hypertension Take 1 tablet by mouth once daily. 90 tablet 3 04/19/2024 Active Start: 03-10-2023 End: 04-19-2024 take 10-12.5 mg by mouth once lisinopril-hydroCHLOROthiazide (ZESTORET IC) 10-12.5 mg per tablet Indications: Essential hypertension Take 1 tablet by mouth once daily. 90 tablet 1 07/25/2023 04/19/2024 Discontinued Start: 03-06-2023 Lisinopril-Hyd rochlorothiazide Active TABLET March 06, 2023 12:00am Start: 11-21-2022 take 10-12.5 mg by mouth once lisinopril-hydroCHLOROthiazide (ZESTORET IC) 10-12.5 mg per tablet Indications: Essential hypertension Take 1 tablet by mouth once daily. 90 tablet 1 11/21/2022 Active Start: 10-15-2020 End: 11-19-2022 take 10-12.5 mg by mouth once lisinopril-hydroCHLOROthiazide (PRINZIDE,ZESTORETIC) 10-12.5 mg per tablet Indications: Essential hypertension Take 1 tablet by mouth once daily. 90 tablet 3 10/15/2020 12/30/2021 Discontinued Start: 06-20-2020 End: 03-06-2023 Lisinopril-Hydrochlorothiazi de Discontinued 1 EACH PO DAILY June 19, 2020 11:00pm March 06, 2023 7:28pm Comment on above: Take 1 tablet by gaurang th once daily. predniSONE 20 mg oral tablet (1 source) Start: 05-24-19 End: 05-29-19 take 2 tablets by mouth once daily at mealtime predniSONE (DELTASONE) 20 mg tablet Indications: Eustachian tube dysfunction, bilateral , Acute recurrent maxillary sinusitis Take 2 tablets by mouth once daily for 5 days. Take daily with food. 10 tablet 0 05/23/2022 05/28/2022 Active Comment on above: Take 2 tablets by mo [facility] once daily for 5 days. Take daily with food. tadalafil 10 mg oral tablet (20 sources) Phosphodiesterase 5 Inhibitor Start: 04-19-19 Tadalafil (CIALIS) 10 mg tablet Indications: ED (erectile dysfunction) of organic origin Take 1 tablet by mouth as needed (30-60 minutes prior to intercourse). 4 tablet 5 04/19/2024 Active Start: 11-21-2022 End: 04-19-2024 Tadalafil (CIALIS) 10 mg tab let Indications: ED (erectile dysfunction) of organic origin Take 1 tablet by mouth as needed (30-60 minutes prior to intercourse). 4 tablet 5 10/24/2023 04/19/2024 Discontinued Start: 05-23-2022 End: 11-19-2022 Tadalafil (CIALIS) 10 mg tab let Indications: ED (erectile dysfunction) of organic origin Take 1 tablet by mouth as needed (30-60 minutes prior to intercourse). 4 tablet 5 05/23/2022 11/19/2022 Discontinued Comment on above: Take 1 tablet by gaurang as needed (30-60 minutes prior to intercourse). Completed/Discontinued Medications Medication Drug Class(es) Dates Sig (Normalized) Sig (Original) cephalexin 500 mg oral capsule (1 source) Cephalosporin Antibacterial Start: 02-18-2020 End: 02-25-2020 take 500 mg by mouth every six hours Cephalexin Discontinued 500 MG PO EVERY 6 HOURS 28 February 18, 2020 12:00am February 25, 2020 12:02am meloxicam 15 mg oral tablet (3 sources) Nonsteroidal Anti-inflammatory Drug Start: 09-24-2021 End: 11-26-2021 take 1 tablet by mouth once daily at mealtime meloxicam (MOBIC) 15 mg tablet Indications: Cervical radiculopathy , Bilateral hip pain Take 1 tablet by mouth once daily. With food. 30 tablet 3 09/24/2021 11/26/2021 Discontinued (Course of therapy completed) Comment on above: Take 1 tablet by mouth once daily. With food. sildenafil 100 mg oral tablet (9 sources) Phosphodiesterase 5 Inhibitor Start: 11-26-2021 End: 05-23-2022 sildenafil (VIAGRA) 100 mg tablet Indications: ED (erectile dysfunction) of organic origin Take 1 tablet by mouth as needed (30-60 minutes prior to intercourse). 6 tablet 4 11/26/2021 05/23/2022 Discontinued Start: 09-24-2021 End: 11-26-2021 sildenafil (VIAGRA) 50 mg ta blet Indications: ED (erectile dysfunction) of organic origin Take 1 tablet by mouth as needed (30-60 minutes prior to intercourse). 6 tablet 3 09/24/2021 11/26/2021 Discontinued Comment on above: Take 1 tablet by gaurang as needed (30-60 minutes prior to intercourse). sulfamethoxazole 800 mg / trimethoprim 160 mg oral tablet (1 source) Dihydrofolate Reductase Inhibitor Antibacterial, Sulfonamide Antimicrobial Start: 02-18-20 End: 02-25-20 take 1 tablet by mouth twice daily Sulfamethoxazole-Tr imethoprim Discontinued 1 TABLET PO TWICE A DAY 14 February 18, 2020 12:00am February 25, 2020 12:02am Problems Active Problems Problem Classification Problem Date Documented Date Episodic/Chronic Cardiac dysrhythmias (1 source) Tachycardia; Translations: [Tachycardia, unspecified] 06-21-2020 Episodic Disorders of lipid metabolism (20 sources) Hyperlipidemia; Translations: [Hyperlipidemia, unspecified] Onset: 06-30-2014 06-30-2014 Chronic Essential hypertension (20 sources) Essential hypertension; Translations: [Essential (primary) hypertension] Onset: 06-23-2014 Chronic Immunizations and screening for infectious disease (8 sources) Patient encounter status; Translations: [Encounter for immunization] Episodic Other and unspecified benign neoplasm (1 source) Lipoma of back; Translations: [Benign lipomatous neoplasm of skin and subcutaneous tissue of trunk] 03-31-2023 Episodic Other male genital disorders (9 sources) Secondary erectile dysfunction; Translations: [Male erectile dysfunction, unspecified] Chronic Other male genital disorders (1 source) Male erectile dysfunction, unspecified; Translations: [ED (erectile dysfunction) of organic origin] Onset: 10-24-2023 Chronic Other nervous system disorders (1 source) Taste sense altered; Translations: [Parageusia] 06-21-2020 Episodic Other nervous system disorders (1 source) Other acute postprocedural pain; Translations: [Acute post-operative pain] Onset: 04-21-2023 Episodic Other non-traumatic joint disorders (3 sources) Hip pain; Translations: [Pain in right hip] Episodic Other non-traumatic joint disorders (1 source) Bilateral chronic pain of upper limbs; Translations: [Pain in right shoulder] Episodic Other nutritional; endocrine; and metabolic disorders (11 sources) Obese class II; Translations: [Obesity, unspecified] Onset: 04-18-2023 Chronic Other nutritional; endocrine; and metabolic disorders (20 sources) Constitutional obesity; Translations: [Other obesity] Onset: 03-23-2015 03-23-2015 Chronic Other nutritional; endocrine; and metabolic disorders (1 source) Obesity; Translations: [Obesity, unspecified] 04-03-2023 Chronic Other skin disorders (2 sources) Mass of subcutaneous tissue of back; Translations: [Localized swelling, mass and lump, trunk] 03-24-2023 Episodic Other skin disorders (1 source) Localized swelling, mass and lump, trunk; Translations: [Subcutaneous mass of back] Onset: 04-21-2023 Episodic Other upper respiratory infections (1 source) Chronic sinusitis; Translations: [Chronic sinusitis, unspecified] Chronic Other upper respiratory infections (2 sources) Acute maxillary sinusitis; Translations: [Acute maxillary sinusitis, unspecified] Episodic Otitis media and related conditions (1 source) Dysfunction of bilateral eustachian tubes; Translations: [Other specified disorders of Eustachian tube, bilateral] Episodic Skin and subcutaneous tissue infections (1 source) Cellulitis of scalp; Translations: [Cellulitis of head [any part, except face]] 02-19-2020 Episodic Spondylosis; intervertebral disc disorders; other back problems (3 sources) Cervical radiculopathy; Translations: [Radiculopathy, cervical region] Episodic Past or Other Problems Problem Classification Problem Date Documented Da te Episodic/Chronic Abdominal hernia (9 sources) Right inguinal hernia ; Translations: [Unilateral inguinal hernia, without obstruction or gangrene, not specified as recurrent] Onset: 03-31-2011 Resolved: 01-03-2017 01-03-2017 Episodic Abdominal pain (9 sources) Generalized abdominal pain; Translations: [Generalized abdominal pain] Onset: 03-31-2011 Resolved: 01-03-2017 01-03-2017 Episodic Calculus of urinary tract (20 sources) Kidney stone; Translations: [Calculus of kidney] Onset: 03-31-2011 03-31-2011 Episodic Diabetes mellitus without complication (20 sources) Increased glucose level; Translations: [Other abnormal glucose] Onset: 09-24-2021 Episodic Fluid and electrolyte disorders (9 sources) Dehydration; Translations: [Dehydration] Onset: 03-31-2011 Resolved: 01-03-2017 01-03-2017 Episodic Genitourinary symptoms and ill-defined conditions (9 sources) Blood in urine; Translations: [Hematuria, unspecified] Onset: 03-31-2011 Resolved: 01-03-2017 01-03-2017 Episodic Other screening for suspected conditions (not mental disorders or infectious disease) (2 sources) Other specified abnormal findings of blood chemistry; Translations: [Other abnormal blood chemistry] Onset: 10-24-2023 04-03-2023 Episodic Screening and history of mental health and substance abuse codes (2 sources) Encounter for screening for depression; Translations: [Encounter for screening examination for other mental health and behavioral disorders] Onset: 10-24-2023 Episodic Results Test Name Value Interpretation Reference Range Facility [facility] 04-19-2024 CNOV Office Visit (FAMPWS ) MICHA DEVLIN ([id number]) 1970 M Date Time Provider Department 04/19/24 7:00 AM LUI RICHARDS During your visit today, we recorded the following information about you: Pulse Respiration Blood pressure Weight 104/minute 16/minute 130/88 126.1 kg Lui Richards APRN.CNP 04/19/2024 7:17 AM Signed Chief Complaint Patient presents with: Yearly Exam HPI Micha Devlin is a 53 year old male who presents here today for Chronic Medical Conditions. Patient is here for wellness exam and medication follow-up. Patient had labs completed prior to our visit today. We will review. PSA normal at 1.7. Hemoglobin A1c 5.7%. History of prediabetes, we have been following. He is not on any medication for this. Reviewed cholesterol panel with patient, total cholesterol elevated at 223, HDL 40, LDL 160. We discussed that his 10-year risk is defined as 9.6%. His lifetime risk is 50%. I did recommend that he start a cholesterol medication. He declined at this time. Feels like he does not need it. Does not follow any particular diet. Admits he does not really exercise at all during the winter months. He does stay active around the household with projects. No particular diet. At this time he denies any chest pain, shortness of breath, abdominal pain, blood in stool or urine, fevers, chills, eye or nose problems. Past medical history, appointments, medications, allergies reviewed. EXAM: BP 130/88 (BP Position: Sitting) Pulse 104 Resp 16 Wt 126.1 kg (278 lb) SpO2 99% BMI 38.77 kg/m? General Appearance: Well appearing, alert, in no acute distress, well-hydrated, well nourished. and Overweight. Head: Normocephalic, no masses, lesions, tenderness or abnormalities. Eyes: Anicteric sclera. Pupils are equally round and reactive to light. Extraocular movements are intact. . Ears: External ears normal, canals clear. Nose/Sinuses: Nares normal, septum midline, mucosa normal, [...] No masses, organomegaly. Extremities: No deformities, edema External labs reviewed ASSESSMENT/PLAN: 1. Wellness examination - ICD9: V70.0, ICD10: Z00.00 (primary diagnosis) - Counseled on healthy diet and regular exercise - Colorectal cancer screening - ordered Cologuard - PSA completed. 2. Primary hypertension - ICD9: 401.9, ICD10: I10 - Controlled - Continue current medications - Recommend home blood pressure monitoring, to bring results to next visit - Encouraged sodium restriction, DASH or Mediterranean diet - Recommend regular aerobic exercise - COMPREHENSIVE METABOLIC PANEL - LISINOPRIL 10 MG-HYDROCHLOROTHIAZIDE 12.5 MG TABLET - AMLODIPINE 5 MG TABLET 3. ED (erectile dysfunction) of organic origin - ICD9: 607.84, ICD10: N52.9 - Stable, continue current medication - TADALAFIL 10 MG TABLET 4. Hyperlipidemia, unspecified hyperlipidemia type - ICD9: 272.4, ICD10: E78.5 - Uncontrolled - Counseled on healthy diet and regular exercise -Elevated risk. Recommended statin, patient declined at this time. Will continue to monitor. - LIPID PANEL BASIC - COMPREHENSIVE METABOLIC PANEL 5. Elevated glucose - ICD9: 790.29, ICD10: R73.09 - Continue to monitor - HEMOGLOBIN A1C 6. Screening for colon cancer - ICD9: V76.51, ICD10: Z12.11 - COLOGUARD Lui Richards APRN.PUBLIC TRANSIT TROLLEY DRIVER RTO in 6 months, sooner if needed. This note was partly generated using [email or web address] voice recognition dictation and may contain some misspelled or inaccurate words missed on review. Lui Richards APRN.CNP 04/19/2024 7:08 AM Signed For diet, please focus on: - More lean meats like chicken, fish, turkey rather than red meats - Less carbs and when having carbs, more complex carbs such as beans, wheat or multigrain and brown rice - more vegetables - health fats such as olive oil, nuts, avocados For exercise: Please try and aim for a goal of 30 min a day most days of the week with a goal of 150min/wk. Brisk walking is plenty, if you can increase it later, then that is good, but if you are going from little or no exercise to this new routine, I do not want you to go too extreme. If you already exercise, I encourage you to try and do a little more than what you have been doing. Repeat labs in 6 months Continue current medications Cologuard will come to your house Follow up in 6 months. Lui Richards APRN.PUBLIC TRANSIT TROLLEY DRIVER Allergies As of Date: 04/19/2024 Noted Allergy Reaction VICODIN (HYDROCODONE-ACETAMINO PHE*03/31/2011 8 - GI Upset Comments: W (more content not included)... [facility]VL[facility] ([id number]) 1970 M Date Time Provider Department 03/15/24 LUKASZ VICKERS [facility] During your visit today, we recorded the following information about you: Charissa Baldwin LPN 03/15/2024 7:13 AM Signed Fax received from outside lab, results put in enter/edit. Fax on providers desk to review. Lui Richards APRN.PUBLIC TRANSIT TROLLEY DRIVER 03/15/2024 7:15 AM Signed Labs reviewed. I will discuss at upcoming visit. Lui Richards APRN.PUBLIC TRANSIT TROLLEY DRIVER Allergies As of Date: 03/15/2024 Noted Allergy Reaction VICODIN (HYDROCODONE-ACETAMINO PHE*03/31/2011 8 - GI Upset Comments: Weird dreams Date Reviewed: 10/24/2023 Reviewed by: Charissa Baldwin LPN - Fully Assessed Reason for Visit: Results [95] Order(s):LIPID PANEL (OUTSIDE) [3206170] Order #: [id number] CMP (EXTERNAL) [9462320] Order #: [id number] HBA1C (OUTSIDE) [4084183] Order #: [id number] Prescriptions as of 03/15/2024 - amLODIPine (NORVASC) 5 mg tablet Take 1 tablet by mouth once daily. - Tadalafil (CIALIS) 10 mg tablet Take 1 tablet by mouth as needed (30-60 minutes prior to intercourse). - lisinopril-hydroCHLORO thiazide (ZESTORETIC) 10-12.5 mg per tablet Take 1 tablet by mouth once daily. Problem List As Of Date 03/15/2024 Noted Resolved Kidney stones [N20.0] 03/31/2011 Hematuria [R31.9] 03/31/2011 01/03/2017 Generalized abdominal pain [R10.84] 03/31/2011 01/03/2017 Right inguinal hernia [K40.90] 03/31/2011 01/03/2017 Dehydration [E86.0] 03/31/2011 01/03/2017 Hypertension [I10] 06/23/2014 Hyperlipidemia [E78.5] 06/30/2014 Constitutional obesity [E66.89] 03/23/2015 Elevated glucose [R73.09] 09/24/2021 Obesity, Class II, BMI 35-39.9 [E66.812] 04/18/2023 Encounter Status:Closed by LUI RICHARDS on 03/15/24 Normal [facility] CMP (EXTERNAL)on 03-12-2024 Albumin [Mass/Vol] 4.3 g/dL [facility] Alk Phos Total 138 U/L Abnormal 45 - 117 U/L [facility] ALT [Catalytic activity/Vol] 38 U/L 12 - 78 U/L [facility] AST [Catalytic activity/Vol] 18 U/L 8 - 37 U/L [facility] Bili Total 0.6 mg/dL 0.2 - 1 mg/dL [facility] Calcium [Mass/Vol] 9.9 mg/dL 8.5 - 10. 1 mg/dL [facility] Chloride [Moles/Vol] 102 mmol/L [facility] CO2 [Moles/Vol] 23 mmol/L [facility] Creatinine [Mass/Vol] 1.08 mg/dL [facility] GFR 81 mL/MIN [facility] GFR AFR AMER [facility] Glucose [Mass/Vol] 100 mg/dL [facility] Interpretation and review of laboratory results Abnormal [facility] Potassium [Moles/Vol] 4.6 mmol/L 3.5 - 5.1 mmol/L [facility] Protein [Mass/Vol] 7.2 g/dL [facility] Sodium [Moles/Vol] 141 mmol/L 136 - 145 mmol/L [facility] Urea nitrogen [Mass/Vol] 15 mg/dL [facility] HBA1C (OUTSIDE)on 03-12-2024 HbA1c (Bld) [Mass fraction] 5.7 % [facility] LIPID PANEL (OUTSIDE)on 02-27 Cholesterol [Mass/Vol] 223 mg/dL [facility] Cholesterol in HDL [Mass/Vol] 40 mg/dL [facility] Cholesterol in LDL [Mass/Vol] 160 mg/dL [facility] Triglyceride [Mass/Vol] 128 mg/dL [facility] VLDL Cholesterol [address] [facility] [address] [facility] No Panel Informationon 03-12 [facility] CNOVon 10-24-2023 CN Office Visit (ISSACWS ) MICHA DEVLIN ([id number]) 1970 M Date Time Provider Department 10/24/23 2:00 PM LUI RICHARDS During your visit today, we recorded the following information about you: Pulse Respiration Blood pressure Weight 96/minute 16/minute 128/87 121.7 kg Lui Richards APRN.DANITA 10/24/2023 1:42 PM Signed Chief Complaint Patient presents with: Follow Up: 6 month HPI Micha Devlin is a 53 year old male who presents here today for Chronic Medical Conditions. Had blood work completed at the [facility] since works for the [employer]. We are waiting on the documents. HTN: Patient is compliant with meds Yes Monitors bp at home: infrequently. Denies side effects: Yes. Chest pain: No. Dyspnea: No. Edema: No. Palpitations: No. Syncope: No. Headache: No. Dizziness: No. ED: Using Cialsis with benefit. Needs refills. Past medical history, appointments, medications, allergies reviewed. EXAM: BP 128/87 Pulse 96 Resp 16 Wt 121.7 kg (268 lb 4.8 oz) SpO2 99% BMI 37.42 kg/m? General Appearance: Well appearing, alert, in no acute distress, well-hydrated, well nourished.. Lungs: Lungs clear to auscultation. No wheezing, rhonchi, rales.. Heart: RRR without murmur, gallop, or rubs. No ectopy. ASSESSMENT/PLAN: 1. Primary hypertension - ICD9: 401.9, ICD10: I10 (primary diagnosis) - Controlled - Continue current medications - Recommend home blood pressure monitoring, to bring results to next visit - Encouraged sodium restriction, DASH or Mediterranean diet - Recommend regular aerobic exercise - AMLODIPINE 5 MG TABLET - COMPREHENSIVE METABOLIC PANEL 2. ED (erectile dysfunction) of organic origin - ICD9: 607.84, ICD10: N52.9 - stable, continue cialsis - TADALAFIL 10 MG TABLET 3. Screening for depression - ICD9: V79.0, ICD10: Z13.31 - DEPRESSION SCREENING 4. Encounter for screening examination for other mental health and behavioral disorders - ICD9: V79.8, ICD10: Z13.39 - ANXIETY SCREENING 5. Screening for prostate cancer - ICD9: V76.44, ICD10: Z12.5 - PSA/PROSTATE SPECIFIC ANTIGEN SCREENING 6. Hyperlipidemia, unspecified hyperlipidemia type - ICD9: 272.4, ICD10: E78.5 - Control undetermined, due for labs - Counseled on healthy diet and regular exercise - LIPID PANEL BASIC 7. Elevated glucose - ICD9: 790.29, ICD10: R73.09 - recheck in 6 months - HEMOGLOBIN A1C Lui Richards APRN.PUBLIC TRANSIT TROLLEY DRIVER RTO in 6 months, sooner if needed. This note was partly generated using Pathflow voice recognition dictation and may contain some misspelled or inaccurate words missed on review. Allergies As of Date: 10/24/2023 Noted Allergy Reaction VICODIN (HYDROCODONE-ACETAMINO PHE*03/31/2011 8 - GI Upset Comments: Weird dreams Date Reviewed: 10/24/2023 Reviewed by: Charissa Baldwin LPN - Fully Assessed Reason for Visit: Follow Up [171] Cmt: 6 month Primary Visit Diagnosis:Primary hypertension [I10] Other Visit Diagnoses:ED (erectile dysfunction) of organic origin [N52.9] Screening for depression [Z13.31] Encounter for screening examination for other mental health and behavioral disorders [Z13.39] Screening for prostate cancer [Z12.5] Hyperlipidemia, unspecified hyperlipidemia type [E78.5] Elevated glucose [R73.09] Order(s):amLODIPine (NORVASC) 5 mg tabletTake 1 tablet by mouth once daily.Disp: 90 tabletRfl: 3 Tadalafil (CIALIS) 10 mg tabletTake 1 tablet by mouth as needed (30-60 minutes prior to intercourse).Disp: 4 tabletRfl: 5 DEPRESSION SCREENING [4040097] Order #: [id number]: 1 ANXIETY SCREENING [] Order #: [id number]: 1 PSA/PROSTATE SPECIFIC ANTIGEN SCREENING [SQPSAS1] Order #: [id number] FUTURE HEMOGLOBIN A1C [BOQNX5D] Order #: [id number] FUTURE COMPREHENSIVE METABOLIC PANEL [SQCMP] Order #: [id number] FUTURE LIPID PANEL BASIC [SQLIPB] Order #: [id number] FUTURE Prescriptions as of 10/24/2023 - amLODIPine (NORVASC) 5 mg tablet Take 1 tablet by mouth once daily. - Tadalafil (CIALIS) 10 mg tablet Take 1 tablet by mouth as needed (30-60 minutes prior to intercourse). - lisinopril-hydroCHLORO thiazide (ZESTORETIC) 10-12.5 mg per tablet Take 1 tablet by mouth once daily. Problem List As Of Date 10/24/2023 Noted Resolved Kidney stones [N20.0] 03/31/2011 Hematuria [R31.9] 03/31/2011 01/03/2017 Generalized abdominal pain [R10.84] 03/31/2011 01/03/2017 Right inguinal hernia [K40.90] 03/31/2011 01/03/2017 Dehydration [E86.0] 03/31/2011 01/03/2017 Hypertension [I10] 06/23/2014 Hyperlipidemia [E78.5] 06/30/2014 Constitutional obesity [E66.8] 03/23/2015 Elevated glucose [R73.09] 09/24/2021 Obesity, Class II, BMI 35-39.9 [E66.9] 04/18/2023 Prescriptions ordered this encounter Disp Refills Start End AMLODIPINE 5 MG TABLET 90 t* 3 10/24/2023 Route: ORAL Sig: Take 1 tablet by mouth once daily. TADALAFIL 10 MG TABLET 4 (more content not included)... Normal [facility] LIPID PANEL (OUTSIDE)Ordered By: Charissa Baldwin on 10-20-2023 Cholesterol [Mass/Vol] 247 mg/dL Cl [facility] Cholesterol in HDL [Mass/Vol] 46 mg/dL [facility] Cholesterol in LDL [Mass/Vol] 177 mg/dL [facility] Triglyceride [Mass/Vol] 133 mg/dL [facility] VLDL Ch[facility] MICROALBUMIN/CREATININE UR W RATIO (EXTERNAL)on 10-20-2023 Albumin/Creat Ratio 13 [facility] Creatinine Urine 122 [facility] Glucose [Mass/Vol] 100 mg/dL [facility] Microalbumin, Random urine [facility] No Panel InformationOrdered By: Charissa Baldwin on 10-20-2023 [facility] CNOVon 04-28-2023 CNOV Office Visit (MANDOS ) MICHA DEVLIN ([id number]) 1970 M Date Time Provider Department 04/28/23 2:30 PM GINA KOROMA During your visit today, we recorded the following information about you: Temperature 98.2 degrees Gina Koroma MD 05/01/2023 1:18 PM Signed Follow up removal of lipoma of upper left back by Dr. Cervantes done on 04/21/ FOLLOW UP VISIT NAME: Micha Devlin CLINIC NO.: [id number] DATE OF SERVICE: 04/28/2023 : 1970 REFERRING PHYSICIAN: Lukasz Vickers MD Micha is status post excision of back lipoma by Dr. Cervantes done on 04/21/2023. He denies any problems VITALS: Temperature 36.8 ?C (98.2 ?F). On examination, wound is healing well, without evidence of infection. Assessment IMPRESSION: s/p lipoma removal of back PLAN: Patient is to return to clinic if any worsening signs/symptoms. Patient will return to his PCP for medical care. Patient acknowledges above. Diagnoses: (Z98.890) Status post skin and subcutaneous tissue surgery (primary encounter diagnosis) I have confirmed and edited as necessary, the PFSH and ROS obtained by others. _ ____ Gina Koroma MD Allergies As of Date: 04/28/2023 Noted Allergy Reaction VICODIN (HYDROCODONE-ACETAMINO PHE*03/31/2011 8 - GI Upset Comments: Weird dreams Date Reviewed: 04/28/2023 Reviewed by: Demetria Sutton LPN - Fully Assessed Reason for Visit: Post Op Follow Up [3947] Cmt: 04/21/23 excision of left upper back mass- [place] Primary Visit Diagnosis:Status post skin and subcutaneous tissue surgery [Z98.890] Prescriptions as of 05/01/2023 - amLODIPine (NORVASC) 5 mg tablet Take 1 tablet by mouth once daily. - lisinopril-hydroCHLORO thiazide (ZESTORETIC) 10-12.5 mg per tablet Take 1 tablet by mouth once daily. - Tadalafil (CIALIS) 10 mg tablet Take 1 tablet by mouth as needed (30-60 minutes prior to intercourse). Problem List As Of Date 04/28/2023 Noted Resolved Kidney stones [N20.0] 03/31/2011 Hematuria [R31.9] 03/31/2011 01/03/2017 Generalized abdominal pain [R10.84] 03/31/2011 01/03/2017 Right inguinal hernia [K40.90] 03/31/2011 01/03/2017 Dehydration [E86.0] 03/31/2011 01/03/2017 Hypertension [I10] 06/23/2014 Hyperlipidemia [E78.5] 06/30/2014 Constitutional obesity [E66.8] 03/23/2015 Elevated glucose [R73.09] 09/24/2021 Obesity, Class II, BMI 35-39.9 [E66.9] 04/18/2023 Disposition: Return if symptoms worsen or fail to improve. Follow-up and Disposition History for Encounter Date Provider Department [id number] Status:Closed by GINA KOROMA on 05/01/23 Normal [facility] ANES POSTPROC EVALon 024 ANES POSTPROC EVAL HNO ID: [id number] Author: ANDI VIRK MD Service: Anesthesiology Author Type: Anesthesiologist Type: Anesthesia Postprocedure Evaluation Filed: 04/21/2023 10:46 Note Text: POST ANESTHESIA EVALUATION NOTE : 1970 Procedure Summary Date: 04/21/23 Room / Location: NE OR / NE OR Anesthesia Start: 855 Anesthesia Stop: 952 Procedure: EXCISION SOFT TISSUE MASS OF POSTERIOR BACK = / > 5 CM (Left: Back upper) Diagnosis: Subcutaneous mass of back (Subcutaneous mass of back [R22.2]) Surgeons: Edy Cervantes MD Responsible Provider: Andi Virk MD Anesthesia Type: general ASA Status: 2 Anesthesia Type: general Airway Type: LMA Last Vitals Vitals Value Taken Time BP 128/77 04/21/23 1016 Temp 36.5 ?C (97.7 ?F) 04/21/23 0954 Pulse 88 04/21/23 1020 Resp 17 04/21/23 1020 SpO2 98 % 04/21/23 1020 Vitals shown include unfiled device data. Post Anesthesia Patient Status Patient Evaluation: PACU. PACU/ICU Patient Condition: stable. Anticipated Disposition: phase 2 then home. Neurological Status: aware and responsive. Pulmonary Status: breathing comfortably on room air Airway Control: returned to baseline unsupported. Cardiovascular Status: stable. Pain Management: clinically adequate - multimodal analgesia pain management approach Postoperative Hydration: acceptable. Intraoperative Events: no significant anesthesia events Post Operative Nausea/Vomiting Status: no significant post operative nausea or vomiting Recommendation: continue current plan of care. Anesthesia Observations No Documentation SIGNATURE: Andi Virk MD PATIENT NAME: Micha Devlin DATE: April 21, 2023 TIME: 10:46 AM CSN: [id number] [facility] ANES PRE-OPon 04-21-2023 ANES PRE-OP HNO ID: [id number] Author: ANDI VIRK MD Service: Anesthesiology Author Type: Anesthesiologist Type: Anesthesia Preprocedure Evaluation Filed: 04/21/2023 08:04 Note Text: ANESTHESIOLOGY DAY OF SURGERY NOTE : 1970 Procedure Information Date/Time: 04/21/23 0839 Procedure: EXCISION SOFT TISSUE MASS OF POSTERIOR BACK = / > 5 CM (Left) Location: NE OR03 / NE OR Surgeons: Edy Cervantes MD Estimated body mass index is 38.38 kg/m? as calculated from the following: Height as of 04/03/23: 180.3 cm (5' 11). Weight as of 04/03/23: 124.8 kg (275 lb 3.2 oz). Most recent hematocrit and potassium results: Hematocrit 49.3 07/03/2017 Potassium 4.7 06/30/2018 Relevant Problems CARDIO (+) Hypertension -RENAL (+) Kidney stones I - PHYSICAL EVALUATION AIRWAY Patient intubated: No. Tracheostomy tube not present Mallampati: II. TM distance: >3 FB. Neck ROM: full ROM without neurological symptoms. Mouth opening: adequate. Short neck: no. Thick neck: no DENTAL Dental findings: teeth intact. Additional exam findings: yes. CARDIOVASCULAR Rhythm: regular PULMONARY Breath sounds clear to auscultation. II - ANESTHESIA PLAN ASA Score: 2 Anesthetic Plan: general Airway type: LMA The patient is not a current smoker. NPO Status: adequate Beta Ryan Monitoring Plan Monitoring plan: Standard ASA. Post Procedure Analgesic Plan Postoperative analgesic plan: parenteral or oral opioids and multimodal analgesia. Informed Consent Anesthetic risks, benefits, alternatives, personnel and consent discussed: yes. Patient / Responsible [employer] Party agrees to proceed: yes Patient / Surrogate agrees to blood products: yes DNR status not reviewed with patient and/or family prior to surgery. Significant changes in the patient condition since the History and Physical, not otherwise documented in primary service progress note: no. Potential Anesthesia issues that may suggest increased risk of complications or contraindication to planned procedure: none. Vitals Value Taken Time BP 140/99 04/21/23717 Pulse 98 04/21/23717 Resp 16 04/21/23717 Temp 36.7 ?C (98.1 ?F) 04/21/23717 SpO2 99 % 04/21/23717 Facility-Administered Medications as of 04/21/2023 Medication Dose Route Frequency - lidocaine (PF) 10 mg/mL (1 %) 1-2 mg injection (XYLOCAINE) 0.1-0.2 mL INTRADERMAL PRN - lactated ringers iv infusion 5-30 mL/hr INTRAVENOUS CONTINUOUS - NaCl 0.9% iv flush bag 20 mL INTRAVENOUS PRN - ceFAZolin 3 g in D5W 100 mL (ANCEF) 3 g INTRAVENOUS Pre-Op Once - acetaminophen 1,000 mg tab(s) (TYLENOL) 1,000 mg ORAL Pre-Op Once - promethazine 12.5 mg tab(s) (PHENERGAN) 12.5 mg ORAL Pre-Op Once - lactated ringers iv infusion 30 mL/hr INTRAVENOUS CONTINUOUS Outpatient Medications as of 04/21/2023 Medication Sig - lisinopril-hydroCHLORO thiazide (ZESTORETIC) 10-12.5 mg per tablet Take 1 tablet by mouth once daily. - Tadalafil (CIALIS) 10 mg tablet Take 1 tablet by mouth as needed (30-60 minutes prior to intercourse). I have interviewed and examined the patient. I have reviewed the medical record and/or the pre-anesthesia evaluation, pertinent labs, and test results. This contains updated information obtained within 48 hours of Surgery/Procedure. SIGNATURE: Andi Virk MD PATIENT NAME: Micha Devlin DATE: April 21, 2023 TIME: 7:23 AM CSN: [id number] Normal [facility] HISTORY PHYSICALon HISTORY PHYSICAL HNO ID: [id number] Author: EDY CERVANTES MD Service: General Surgery Author Type: Physician Type: H&P Filed: 04/21/2023 07:10 Note Text: HISTORY AND PHYSICAL Micha Devlin 1970 REFERRING PHYSICIAN: CHIEF COMPLAINT: Consult (7 cm lump of left shoulder) HPI: The patient is a 52 year old male with a complaint of Subcutaneous mass of back (primary encounter diagnosis). Patient notes lump of left shoulder area x approximately 2 years, increasing in size since onset. Occasionally sore and more noticeable. He desires excision. Has not had imaging of site previously. PAST MEDICAL HISTORY PAST MEDICAL HISTORY Diagnosis Date Bone spur 2017 Erectile dysfunction of organic origin Essential hypertension Eustachian tube dysfunction, bilateral HTN (hypertension) Kidney stones 2011 Mass of soft tissue of shoulder 03/13/2023 left scapula Obesity Umbilical hernia 04/01/2015 PAST SURGICAL HISTORY PAST SURGICAL HISTORY Procedure Laterality Date ESOPHAGOGASTRODUODENOS COPY TRANSORAL DIAGNOSTIC 09/09/2003 EGD HERNIA REPAIR W/MESH 04/01/15 NEPHROLITHOTOMY REMOVAL STAGE 1 Left 2011 EXTRACORPOREAL SHOCKWAVE LITHOTRIPSY UNILATERAL PAST SURGICAL HISTORY OF Left 04/2016 Labrum Tear and Bone spur removed. Dr. Olson at [facility] CURRENT MEDICATIONS Current Outpatient Medications Medication Sig amLODIPine (NORVASC) 5 mg tablet Take 1 tablet by mouth once daily. lisinopril-hydroCHLORO thiazide (ZESTORETIC) 10-12.5 mg per tablet Take 1 tablet by mouth once daily. Tadalafil (CIALIS) 10 mg tablet Take 1 tablet by mouth as needed (30-60 minutes prior to intercourse). No current facility-administered medications for this visit. ALLERGIES: Vicodin [Hydrocodone-Acetamino phen] PERSONAL HISTORY: SOCIAL HISTORY Social History Tobacco Use Smoking status: Never Smokeless tobacco: Never Vaping Use Vaping Use: Never used Substance Use Topics Alcohol use: Not Currently Drug use: Never FAMILY HISTORY: FAMILY HISTORY FAMILY HISTORY Problem Relation Age of Onset Hypertension Father Hypertension Paternal Uncle Hypertension Paternal Aunt Diabetes Father diet controlled. REVIEW OF SYMPTOMS: General: The patient denies fatigue, denies weight loss, denies weight gain, denies feeling hot, and denies feelings of cold. Eyes: The patient denies glaucoma, denies eye injury/surgery, wears glasses or contacts. Ear/Nose/Throat: The patient NOTES allergies, denies hayfever, denies ear infections, and denies bloody noses. Cardiovascular: The patient denies chest pain, denies heart disease, NOTES high blood pressure,denies cardiac stent, denies prior heart attack, denies irregular heart beat, denies high cholesterol, denies poor circulation, denies heart failure, other cardiac issues, denies claudication, denies cold feet, denies peripheral arterial stent. Respiratory: The patient denies tuberculosis, denies pneumonia, denies frequent cough, denies pulmonary embolism, denies shortness of breath, and denies coughing up blood. Gastrointestinal: The patient denies difficulty swallowing, denies acid reflux, denies ulcers, denies vomiting, denies jaundice/hepatitis, denies gallbladder problems, denies black or tarry stools, denies hemorrhoids, denies bleeding from rectum, denies diverticulitis, denies constipation, denies diarrhea, denies loss of stool control, and NOTES hernias. Kidney/Bladder: The patient NOTES kidney stones, denies urine infections, and denies bloody urine. Skin: The patient denies a history of skin cancer, denies bleeding/changing moles, and denies a history of skin rash. Neurologic: The patient denies a history of epilepsy/convulsions, denies headaches, denies head/spinal injuries, and denies stroke/TIA. Psychiatric: The patient denies psychiatric medications, denies depression, and denies voices, denies substance abuse. Endocrine: The patient denies thyroid disorders, denies diabetes, and denies hormonal problems. Hematologic: The patient denies a history of bruising, denies bleeding, and denies anemia, denies blood clots. Infections: The patient denies a history of measles and mumps, denies rheumatic fever, and denies sexually transmitted diseases. Musculoskeletal: The patient denies back pain/injury, denies back problems, denies sciatica, denies knee/foot trouble, denies arthritis, or denies gout. When was patient's last Mammogram screening? N/A Last Colonoscopy: 10/2021 PHYSICAL EXAMINATION: General: The patient is 52 year old male, well nourished, well hydrated in no acute distress. The patient is oriented to time, place, and person. VITALS: Blood pressure 132/88, pulse 84, temperature 36.7 ?C (98 ?F), height 180.3 cm (5' 11), weight 124.8 kg (275 lb 3.2 oz), SpO2 98%. HEENT: Normal cephalic, ataumatic, pupils are equally round, sclera are anicteric, mucous membranes are moist, oropharynx is clear. Neck has no mas (more content not included)... Normal [facility] OPERATIVE NOon 04-21-2023 OPERATIVE NO HNO ID: [id number] Author: EDY CERVANTES MD Service: General Surgery Author Type: Resident Type: Operative Report Filed: 04/24/2023 16:54 Note Text: Attestation signed by Edy Cervantes MD at 04/24/2023 4:54 PM I was present for the entire procedure. I agree with the above dictation OPERATIVE/PROCEDURE REPORT LOG ID: [id number] SURGERY/PROCEDURE DATE: 04/21/2023 INCISION/PROCEDURE START TIME: 9:13 AM INCISION CLOSE/PROCEDURE END TIME: SURGEON(S)/PROCEDURALI ST(S) AND TALLOW MAKER(S): Surgeon(s) and Role: * Edy Cervantes MD - Primary * Emily Alfonso DO - Resident - Assisting Physician Coroner Forensic Technician: Desiree Cavazos (Huy); Maren Nance PA-C SURGERY/PROCEDURE(S): Excision of soft tissue mass, left upper back ANESTHESIA: General INDICATION: Micha Devlin is a 52 year old male who presented to clinic on 04/03/2023 for evaluation of soft tissue mass of the left upper back/shoulder area that had been present for approximately 2 years. Patient reported that over that time frame, the mass had increased in size and was occasionally sore. He was interested in excision of the soft tissue mass. All risks, benefits, alternatives, and possible complications for excision of soft tissue mass were discussed with the patient and he provided consent to proceed with the operation. SURGERY/PROCEDURE DETAILS: Patient was identified in the pre-operative area and brought to the OR suite. A sign in huddle was performed. Patient was transferred to the OR table in the supine position. General anesthesia was induced out difficulty. He was then repositioned into right lateral decubitus with a padded beanbag and secured to the table with padded straps. The left upper back and shoulder region were prepped and draped in the usual sterile fashion. A final timeout was performed. A 4 cm transverse incision was created over the soft tissue mass and dissection was carried down through the subcutaneous tissues with a combination of Bovie electrocautery and blunt dissection. The soft tissue mass was completely freed from the surrounding connective tissues and removed in its entirety. It measured approximately 7 cm x 3.5 cm x 3 cm. The cavity was irrigated, aspirated, and found to be hemostatic. It was closed in layers with 3-0 Vicryl suture and the skin was closed with running subcuticular 4-0 Monocryl. Skin glue was applied as dressing. Instrument, needle, and sponges were correct. The patient will undergo incisional difficulties transferred to the PACU in table condition. PRE-OP/PRE-PROCEDURE DIAGNOSIS: Left back soft tissue mass POST-OP/POST-PROCEDURE DIAGNOSIS: Same as Preop ESTIMATED BLOOD LOSS: 5 mls SPECIMENS: ID Type Source Tests Collected by Time Destination A : excision lesion left upper back Tissue SKIN EXCISION SURGICAL PATHOLOGY Edy Cervantes MD 04/21/2023 9:15 AM IMPLANTABLE DEVICES: NONE DRAINS: None COMPLICATIONS: None CLOSURE TECHNIQUE: Primary PARTICIPATION IN SURGERY/PROCEDURE: Resident performed the procedure, under direct supervision and the remainder of the procedure was performed by the primary surgeon/proceduralist with assistance. SIGNATURE: Emily Alfonso DO PATIENT NAME: Micha Devlin DATE: April 21, 2023 TIME: 9:39 AM [facility] SURGICAL PATHOLOGYon CASE REPORT [facility] Comment on above: Order Comment: Speci men Type: TISSUE SPECIMEN Ordering Facility: [facility] Address: [address] [place] [address] Result Comment: Surg ica Pathology Report Case: [id number] Authorizing Provider: Edy Cervantes MD Collected: 04/21/2023 09:15 AM Ordering Location: [facility] Surgery Received: 04/21/2023 10:28 AM Pathologist: Kathleen Jalloh MD Specimen: SKIN EXCISION, excision lesion left upper back Performed By: #### S #### [facility] CLIA [id number] [address] [place] [address] CLINICAL HISTORY Normal [facility] Comment on above: Order Comment: Speci men Type: TISSUE SPECIMEN Ordering Facility: [facility] Address: [address] [place] [address] Result Comment: Pre- op diagnosis: Subcutaneous mass of back [R22.2] Performed By: #### S #### [facility] CLIA [id number] [address] [place] [address] FINAL DIAGNOSIS Normal [facility] Comment on above: Order Comment: Speci men Type: TISSUE SPECIMEN Ordering Facility: [facility] Address: [address] [place] [address] Result Comment: A. S kin, left upper back, excision: - Lipoma. JK/PTC 04/25/23 Performed By: #### S #### [facility] CLIA [id number] [address] [place] [address] FINAL PERFORMING LAB Normal [facility] Comment on above: Order Comment: Speci men Type: TISSUE SPECIMEN Ordering Facility: [facility] Address: [address] [place] [address] Result Comment: Diag nostic interpretation performed at [facility], [address] [place] [address] CLIA# [id number] Wound Treatment Rn: Anival Mazariegos M.D. Performed By: #### S #### [facility] CLIA [id number] [address] [place] [address] [place] GROSS DESCRIPTION Normal [facility] Comment on above: Order Comment: Speci men Type: TISSUE SPECIMEN Ordering Facility: [facility] Address: [address] [place] [address] Result Comment: A. S KIN EXCISION Received in formalin labeled excision lesion left upper back are 2, unoriented portions of soft, lobulated, cho-pink adipose tissue, aggregating to 8.0 x 5.0 x 3.2 cm. Sectioning reveals cho, soft, homogenous cut surfaces consisting entirely of adipose tissue. Hemorrhage and necrosis are not identified. Agricultural Crop Farm Manager sections are submitted in cassettes A1-A4. AKA April 21, 2023 3:48 PM Gross examination performed at [facility], [address] [place] [address] Performed By: #### S #### [facility] IA [id number] [address] [place] [address] [place] US CHEST WALL/SOFT TISSUEon 03-24-2023 [facility] Absolute lymphocyte countOrd ered By: ED PROVIDER on 03-06-2023 Lymphocytes Auto (Unsp spec) [#/Vol] 1.36 10*3/uL 0.83-4.51 [facility] Basophil percentageOrdered B y: ED PROVIDER on 03-06-2023 Basophils/100 WBC (Bld) 1.1 % 0-1 [facility] Chloride [Moles/Vol] 100 mmol/L 98-107 [facility] Eosinophils/100 WBC (Bld) 1.0 % 0-5 [facility] Glucose [Mass/Vol] 121 mg/dL 74-106 [facility] Comment on above: Fasting Glucose resu lt from 100 to 125 mg/dL suggests IMPAIRED HOMEOSTASIS per A.D.A. criteria. Neutrophils (Bld) [#/Vol] 4.9 10*3/uL 2.0-7.7 [facility] Neutrophils/100 WBC (Bld) 67.1 % 47-70 [facility] Potassium [Moles/Vol] 3.9 mmol/L 3.5-5.1 [facility] Comment on above: Slight Hemolysis, Re sult may be falsely increased. Sodium [Moles/Vol] 135 mmol/L 136-145 [facility] WBC (Bld) [#/Vol] 7.4 10*3/uL 4.4-11.0 [facility] Blood erythrocytes count (nu mber/volume)Ordered By: ED PROVIDER on 03-06-2023 RBC (Bld) [#/Vol] 6.41 10*6/uL 4.6-6.2 [facility] Blood hemoglobin measurement (mass/volume)Ordered By: ED PROVIDER on 03-06-2023 Hemoglobin (Bld) [Mass/Vol] 18.6 g/dL 13.0-16.5 [facility] Comment on above: CRITICAL VALUE VERIF IED. CALLED TO ROXANA ABARCA ER03/06/231951 Steve Coronado.RESULTS READ BACK BY SAME . Blood lymphocytes/100 leukoc ytesOrdered By: ED PROVIDER on 03-06-2023 Lymphocytes/100 WBC (Bld) 18.5 % 19-41 [facility] Blood monocytes/100 leukocyt esOrdered By: ED PROVIDER on 03-06-2023 Monocytes/100 WBC (Bld) 12.2 % 0-10 [facility] Blood platelet adequacy dete ction by light microscopyOrdered By: ED PROVIDER on 03-06-2023 Platelets LM Ql (Bld) ADEQUATE ADEQ [facility] Blood platelet mean volumeOr dered By: ED PROVIDER on 03-06-2023 Platelet mean volume (Bld) [Entitic vol] 8.7 fL 6.2-12.0 [facility] Determination of erythrocyte mean corpuscular volume (MCV)Ordered By: ED PROVIDER on 03-06-2023 MCV (RBC) [Entitic vol] 87.1 fL 80-94 [facility] Hematocrit Auto (Bld) [Volum e fraction]Ordered By: ED PROVIDER on 03-06-2023 Hematocrit (Bld) [Volume fraction] 55.8 % 40-54 [facility] - Chemistry and C hemistry - challengeOrdered By: ED PROVIDER on 03-06-2023 CO2 [Moles/Vol] 31.0 mmol/L 21.0-32.0 [facility] Urea nitrogen/Creatinine [Mass ratio] 13.1 mg/mg 10-20 [facility] - Hematology and Cell countsOrdered By: ED PROVIDER on 03-06-2023 Anisocytosis Ql (Bld) RARE [facility] Erythrocyte distribution width (RBC) [Entitic vol] 41.1 fL 35.1-43.9 [facility] Erythrocyte distribution width (RBC) [Ratio] 13.0 % 11.6-14.6 [facility] Immature granulocytes/100 WBC (Bld) 0.100 % 0.0-0.9 [facility] Comment on above: IG% - Immature Granu locytes (promyelocytes, myelocytes and metamyelocytes) > 1% indicates that a LEFT SHIFT is Present. MCH (RBC) [Entitic mass] 29.0 pg 27.0-32.0 [facility] Nucleated RBC/100 WBC (Bld) [Ratio] 0 % 0-5 [facility] - Microbiology an d Antimicrobial susceptibilityOrdered By: Dionte Arndt on 03-06-2023 SARS-CoV-2 (COVID-19) RNA MACY+probe Ql (Unsp spec) [facility] MCHC Auto (RBC) [Mass/Vol]Or dered By: ED PROVIDER on 03-06-2023 MCHC (RBC) [Mass/Vol] 33.3 g/dL 32-36 [facility] Macrocytes detectionOrdered By: ED PROVIDER on 03-06-2023 Macrocytes Ql (Bld) [facility] No Panel InformationOrdered By: ED PROVIDER on 03-06-2023 Troponin I High Sensitivity 5 pg/mL 3.0-78.0 [facility] Comment on above: Please Note: [place] t Units and Gender Specific Reference Ranges. For more information see Policy Stat Procedure [place] High Sensitivity Troponin (TNIH) and attachments. Estimated Creatinine Clearance Calc 69.19 ml/min [facility] Estimated GFR (MDRD) Amer 74 mL/min >60 [facility] Comment on above: GFR Calc Estimated GFR (MDRD) Non-Af Amer 61 mL/min >60 [facility] Comment on above: Non- GFR Calc No Panel InformationOrdered By: Dionte Arndt on 03-06-2023 D-Dimer Quantitative (PE/DVT) 0.58 FEU/ug/m 0.27-0.49 [facility] Comment on above: CRITICAL VALUE VERIF IED. CALLED TO ROXANA ABARCA RN ER03/06/232050 Steve Coronado.RESULTS READ BACK BY SAME . D-Dimer ELEVATED (>0.49): Additional studies and clinicalassessments are indicated to conclude diagnosis of:Deep Vein Thrombosis (DVT) or Pulmonary Embolism (PE) Platelets bldOrdered By: ED PROVIDER on 03-06-2023 Platelets (Bld) [#/Vol] 325 10*3/uL 150-450 [facility] RBC morphologyOrdered By: ED PROVIDER on 03-06-2023 RBC morphology finding Nom (Bld) N CHROM NORMAL NORM C&C [facility] Review by pathologistOrdered By: ED PROVIDER on 03-06-2023 Pathologist review Ryland (Unsp spec) [Interp] May foll [facility] Serum or plasma calcium benita urement (mass/volume)Ordered By: ED PROVIDER on 03-06-2023 Calcium [Mass/Vol] 10.2 mg/dL 8.5-10.1 [facility] Serum or plasma creatinine m easurement (mass/volume)Ordered By: ED PROVIDER on 03-06-2023 Creatinine [Mass/Vol] 1.30 mg/dL 0.70-1.30 [facility] Comment on above: The validity of the calculated GFR & GFRAA in patients over 70 years has not been determined. Clinical correlation is essential. Serum or plasma urea nitroge n measurement (mass/volume)Ordered By: ED PROVIDER on 03-06-2023 Urea nitrogen [Mass/Vol] 17 mg/dL 7-18 [facility] Thin prep Papanicolaou smear with manual screeningOrdered By: ED PROVIDER on 03-06-2023 Thin prep Papanicolaou smear with manual screening 4 5-15 [facility] No Panel Informationon 09-24 Radiology Study observation (narrative) [facility] XR Cervical spine AP and Lat eral and obliqueon 09-24-2021 IMPRESSION: Mild degenerative changes as detailed in report. Dermatopathologist: TANNER Transcribe Date/Time: Sep 24 2021 1:52P Dictated by : BERTRAM LIRA MD This examination was interpreted and the report reviewed and electronically signed by: BERTRAM LIRA MD on Sep 24 2021 7:10PM EST ZZZ_DO_NOT_U SE_DIVISION OF RADIOLOGY * * *Final Report* * * DATE OF EXAM: Sep 24 2021 1:11PM WOX 5311 - XR CERVICAL 4V AP/LAT/OBL / PROCEDURE REASON: Cervical radiculopathy * * * * Physician Interpretation * * * * EXAMINATION: XR CERVICAL 4V AP/LAT/OBL HISTORY: Neck pain with numbness and tingling in both arms. Cervical radiculopathy. TECHNIQUE: XR CERVICAL 4V AP/LAT/OBL Laterality: NOT APPLICABLE Number of different views (projections): 4 M: XB_1 COMPARISON: There are no prior relevant examinations available for comparison within the [facility]. RESULT: 4 views of the cervical spine demonstrate multilevel degenerative change with vertebral body osteophytosis especially at C4-5 and C5-6. The intervertebral disc spaces are reasonably preserved. There are no vertebral body compression deformities and alignment is well maintained. Bilateral obliques demonstrate moderate foraminal narrowing at C4-5 and C6-7 on the left and at C6-7 and C7-T1 on the right.. The atlantoaxial interval and craniocervical junction are intact. There is no prevertebral soft tissue abnormality. ZZZ_DO_NOT_U _DIVISION OF RADIOLOGY Provider, [facility] - 09/24/2021 * * *Final Report* * * DATE OF EXAM: Sep 24 2021 1:11PM WOX 5311 - XR CERVICAL 4V AP/LAT/OBL / PROCEDURE REASON: Cervical radiculopathy * * * * Physician Interpretation * * * * EXAMINATION: XR CERVICAL 4V AP/LAT/OBL HISTORY: Neck pain with numbness and tingling in both arms. Cervical radiculopathy. TECHNIQUE: XR CERVICAL 4V AP/LAT/OBL Laterality: NOT APPLICABLE Number of different views (projections): 4 M: XB_1 COMPARISON: There are no prior relevant examinations available for comparison within the [facility]. RESULT: 4 views of the cervical spine demonstrate multilevel degenerative change with vertebral body osteophytosis especially at C4-5 and C5-6. The intervertebral disc spaces are reasonably preserved. There are no vertebral body compression deformities and alignment is well maintained. Bilateral obliques demonstrate moderate foraminal narrowing at C4-5 and C6-7 on the left and at C6-7 and C7-T1 on the right.. The atlantoaxial interval and craniocervical junction are intact. There is no prevertebral soft tissue abnormality. IMPRESSION IMPRESSION: Mild degenerative changes as detailed in report. Dermatopathologist: TANNER Transcribe Date/Time: Sep 24 2021 1:52P Dictated by : BERTRAM LIRA MD This examination was interpreted and the report reviewed and electronically signed by: BERTRAM LIRA MD on Sep 24 2021 7:10PM EST [facility] XR HIP BILATERAL 5V PEL/AP/L AT EACH HIPon 09-24-2021 IMPRESSION: 1. No acute bony process. 2. Degenerative changes as detailed in report. 3. Possible osteochondral loose bodies left hip joint space. Dermatopathologist: [facility] Transcribe Date/Time: Sep 24 2021 1:49P Dictated by : BERTRAM LIRA MD This examination was interpreted and the report reviewed and electronically signed by: BERTRAM LIRA MD on Sep 24 2021 1:51PM EST KUN_DO_NOT_U _DIVISION OF RADIOLOGY * * *Final Report* * * DATE OF EXAM: Sep 24 2021 1:11PM WOX 5353 - XR HIP ELIEZER 5V PEL+ AP/LAT EA HIP / PROCEDURE REASON: multiple diagnoses * * * * Physician Interpretation * * * * EXAMINATION: XR HIP ELIEZER 5V PEL+ AP/LAT EA HIP HISTORY: Bilateral hip pain. TECHNIQUE: XR HIP ELIEZER 5V PEL+ AP/LAT EA HIP Laterality: BILATERAL Number of different views (projections): 1 pelvis 2 hip M: XB_1 COMPARISON: Comparison is made to AP view of a KUB from to September 2011. RESULT: Supine radiograph of the pelvis as well as AP and frogleg views of the bilateral hips demonstrate the visualized bony pelvic ring intact. The hips are bilaterally symmetric with mild degenerative change manifest predominantly as subtle superolateral joint space narrowing and prominent superior and inferior acetabular femoral spurring. Views of the left hip demonstrate at least 2 subcentimeter ossific densities along the lateral femoral neck possibly reflecting osteochondral loose bodies. There is no acute bony process. The soft tissues are unremarkable. KUN_DO_NOT_U SE_DIVISION OF RADIOLOGY Provider, [facility] - 09/24/2021 * * *Final Report* * * DATE OF EXAM: Sep 24 2021 1:11PM WOX 5353 - XR HIP ELIEZER 5V PEL+ AP/LAT EA HIP / PROCEDURE REASON: multiple diagnoses * * * * Physician Interpretation * * * * EXAMINATION: XR HIP ELIEZER 5V PEL+ AP/LAT EA HIP HISTORY: Bilateral hip pain. TECHNIQUE: XR HIP ELIEZER 5V PEL+ AP/LAT EA HIP Laterality: BILATERAL Number of different views (projections): 1 pelvis 2 hip M: XB_1 COMPARISON: Comparison is made to AP view of a KUB from to September 2011. RESULT: Supine radiograph of the pelvis as well as AP and frogleg views of the bilateral hips demonstrate the visualized bony pelvic ring intact. The hips are bilaterally symmetric with mild degenerative change manifest predominantly as subtle superolateral joint space narrowing and prominent superior and inferior acetabular femoral spurring. Views of the left hip demonstrate at least 2 subcentimeter ossific densities along the lateral femoral neck possibly reflecting osteochondral loose bodies. There is no acute bony process. The soft tissues are unremarkable. IMPRESSION IMPRESSION: 1. No acute bony process. 2. Degenerative changes as detailed in report. 3. Possible osteochondral loose bodies left hip joint space. Dermatopathologist: TANNER Transcribe Date/Time: Sep 24 2021 1:49P Dictated by : BERTRAM LIRA MD This examination was interpreted and the report reviewed and electronically signed by: BETRRAM LIRA MD on Sep 24 2021 1:51PM [facility] XR HIP BILATERAL 5V PEL/AP/L AT EACH HIPOrdered By: Ccf Provider on 09-24-2021 [facility] COVID 19, [facility](RT COLLECT )on 12-14-2020 SARS-CoV-2 (COVID-19) RNA MACY+probe Ql (Unsp spec) Not detected Normal Not Detect [facility] Comment on above: Result Comment: Norm al Reference Range: Not Detected Method:(RT-PCR) real-time reverse transcriptase PCR [employer] Instrument *The Food and Drug Administration (FDA) has issued an Emergency Use Authorization (EAU) for the [employer] SARS-CoV-2 Assay for the rapid detection of the virus that causes COVID-19. This test has been validated, but the FDAs independent review of this validation is pending. *Negative results do not preclude infection and should not be used as the sole basis for treatment or patient management. Optimum specimen types and timing for peak viral levels during infections caused by SARS-CoV-2 have not been determined. Collection of multiple specimens from the same patient may be necessary to detect the virus. The possibility of a false negative result should be considered if the patient has clinical presentation or has had recent exposure. Performed By: #### L 501.4010, L500.4050, L501.5200, L100.0100, L501.2450 #### [facility] [address], [address] 12 Lead EKGon 06-20-2020 12 Lead EKG [facility] [address] [place] [address] 12 Lead EKG 06/20/20 1523 MR#: [id number] Acct: [id number] Name: MICHA DEVLIN Rep #: [id number] : 1970 49 From: Dionte Askew MD Attending Dr: Status: DEP ER Ordering Dr: Edy Link DO Date: 06/20/20 Location: ED Sex: M C Admitted: Test Reason : GENERAL Blood Pressure : / mmHG Vent. Rate : 104 BPM Atrial Rate : 104 BPM P-R Int : 150 ms QRS Dur : 096 ms QT Int : 332 ms P-R-T Axes : 028 -15 012 degrees QTc Int : 436 ms Sinus tachycardia Otherwise normal ECG Confirmed by AZAR VÁSQUEZ, DIONTE ([id number]), story editor FRIDA DESIR ([id number]) on 06/24/2020 8:30:59 AM Referred By: Confirmed By:DIONTE ASKEW MD 06/24/20 0831 Date Dionte Askew MD CC: Dr. Edy Link DO; Dr. Lukasz Vickers MD Signed Normal [facility] CBC W/Diff, Automatedon 04-2 Absolute Lymph 1.63 X10 3/uL Normal 0.83-4.51 [facility] Comment on above: Performed By: #### L 501.4010, L500.4050, L501.5200, L100.0100, L501.2450 #### [facility] [address] [place], [address] Absolute Neut 7.4 X10 3/uL Normal 2.0-7.7 [facility] Comment on above: Performed By: #### L 501.4010, L500.4050, L501.5200, L100.0100, L501.2450 #### [facility] [address] [place], [address] Basophils/100 WBC (Bld) 0.5 % Normal 0-1 [facility] Comment on above: Performed By: #### L 501.4010, L500.4050, L501.5200, L100.0100, L501.2450 #### [facility] [address] [place], [address] Eosinophils/100 WBC (Bld) 0.6 % Normal 0-5 [facility] Comment on above: Performed By: #### L 501.4010, L500.4050, L501.5200, L100.0100, L501.2450 #### [facility] [address] [place], [address] Erythrocyte distribution width (RBC) [Ratio] 12.7 % Normal 11.6-14.6 [facility] Comment on above: Performed By: #### L 501.4010, L500.4050, L501.5200, L100.0100, L501.2450 #### [facility] [address] [place], [address] Hematocrit (Bld) [Volume fraction] 52.9 % Normal 40-54 [facility] Comment on above: Performed By: #### L 501.4010, L500.4050, L501.5200, L100.0100, L501.2450 #### [facility] [address] [place], [address] Hemoglobin (Bld) [Mass/Vol] 17.4 g/dL High 13.0-16.5 [facility] Comment on above: Performed By: #### L 501.4010, L500.4050, L501.5200, L100.0100, L501.2450 #### [facility] [address] [place], [address] IG% 0.200 Normal 0.0-0.9 [facility] Comment on above: Result Comment: IG% - Immature Granulocytes (promyelocytes, myelocytes and metamyelocytes) > 1% indicates that a LEFT SHIFT is Present. Performed By: #### L 501.4010, L500.4050, L501.5200, L100.0100, L501.2450 #### [facility] [address] [place], [address] Lymphocytes/100 WBC (Bld) 16.4 % Low 19-41 [facility] Comment on above: Performed By: #### L 501.4010, L500.4050, L501.5200, L100.0100, L501.2450 #### [facility] [address] [place], [address] MCH (RBC) [Entitic mass] 29.5 pg Normal 27.0-32.0 [facility] Comment on above: Performed By: #### L 501.4010, L500.4050, L501.5200, L100.0100, L501.2450 #### [facility] [address] [place], [address] MCHC (RBC) [Mass/Vol] 32.9 g/dL Normal 32-36 [facility] Comment on above: Performed By: #### L 501.4010, L500.4050, L501.5200, L100.0100, L501.2450 #### [facility] [address] [place], [address] MCV (RBC) [Entitic vol] 89.7 fL Normal 80-94 [facility] Comment on above: Performed By: #### L 501.4010, L500.4050, L501.5200, L100.0100, L501.2450 #### [facility] [address] [place], [address] Monocytes/100 WBC (Bld) 8.4 % Normal 0-10 [facility] Comment on above: Performed By: #### L 501.4010, L500.4050, L501.5200, L100.0100, L501.2450 #### [facility] [address] [place], [address] Neutrophils/100 WBC (Bld) 73.9 % High 47-70 [facility] Comment on above: Performed By: #### L 501.4010, L500.4050, L501.5200, L100.0100, L501.2450 #### [facility] [address] [place], [address] Nucleated RBC (Bld) [#/Vol] 0 10*3/uL Normal 0-5 [facility] Comment on above: Performed By: #### L 501.4010, L500.4050, L501.5200, L100.0100, L501.2450 #### [facility] [address] [place], [address] Platelet mean volume (Bld) [Entitic vol] 8.9 fL Normal 6.2-12.0 [facility] Comment on above: Performed By: #### L 501.4010, L500.4050, L501.5200, L100.0100, L501.2450 #### [facility] [address] [place], [address] Platelets (Bld) [#/Vol] 449 10*3/uL Normal 150-450 [facility] Comment on above: Performed By: #### L 501.4010, L500.4050, L501.5200, L100.0100, L501.2450 #### [facility] [address] [place], [address] RBC (Bld) [#/Vol] 5.90 10*6/uL Normal 4.6-6.2 [facility] Comment on above: Performed By: #### L 501.4010, L500.4050, L501.5200, L100.0100, L501.2450 #### [facility] [address] [place], [address] RDW SD 41.9 fl Normal 35.1-43.9 [facility] Comment on above: Performed By: #### L 501.4010, L500.4050, L501.5200, L100.0100, L501.2450 #### [facility] [address] [place], [address] WBC (Bld) [#/Vol] 10.0 10*3/uL Normal 4.4-11.0 [facility] Comment on above: Performed By: #### L 501.4010, L500.4050, L501.5200, L100.0100, L501.2450 #### [facility] [address] [place], [address] COVID 19 AG RAPID (RN COLLE T)on 06-20-2020 SARS-CoV-2 (COVID-19) RNA MACY+probe Ql (Unsp spec) COVID AG -RAPID *Negative results from patients with symptom onset beyond five days should be treated as presumptive and confirmed by a molecular assay if clinically necessary. Negative results should not be used as the sole basis for treatment or for patient management. *Positive results do not differentiate between SARS-CoV and SARS-CoV-2. If differentation of the specific SARS virus is desired an additional sample and an additional order is required. * This test has not been FDA cleared or approved; the test has been authorized by FDA under an Emergency Use Authorization (EAU) for use by laboratories certified under CLIA that meet the requirements to perform moderate, high, or waived complexity tests. Normal Reference Range: Negative Testing performed on Envianceia analyzer PB (lateral flow immunofluorescent assay) SARS-CoV-2 (COVID 19) Negative Normal [facility] Comment on above: Performed By: #### M 100.505 #### [facility] [address] [place], [place], [address] Chest 1 View (Portable)on Chest 1 View (Portable) [facility] Imaging Services [address] [place] [address] Chest 1 View (Portable) MR#: [id number] Acct: [id number] Name: MICHA DEVLIN Rep #: [id number] : 1970 M 49 From: Abilio lipscomb MD PCP: Dr. Lukasz Vickers MD Status: REG ER Study: Chest 1 View (Portable) Date of Exam: 06/20/20 Exam# [id number] Ordering Dr: Edy Link DO INDICATION: chest pain EXAMINATION/TECHNIQUE: X-RAY - XR Chest 1 View COMPARISON: None. FINDINGS: The lungs are clear. The cardiomediastinal silhouette is unremarkable. No pleural effusion or pneumothorax. No acute osseous abnormalities. RAD/Chest 1 View (Portable) IMPRESSION: No acute radiographic abnormalities. Electronically Signed: Abilio Ortiz MD at 16:14 EDT Tel , Service support , CC: Dr. Edy Link DO; Dr. Lukasz Vickers MD Dermatopathologist: Signed Normal [facility] Comprehensive Metabolic Prof ilon 06-20-2020 Albumin [Mass/Vol] 3.9 g/dL Normal 3.2-5.0 [facility] Comment on above: Performed By: #### L 501.4010, L500.4050, L501.5200, L100.0100, L501.2450 #### [facility] [address] [place], [address] Albumin/Globulin [Mass ratio] 1.0 {ratio} Normal 0.9-2.4 [facility] Comment on above: Performed By: #### L 501.4010, L500.4050, L501.5200, L100.0100, L501.2450 #### [facility] [address] [place], [address] ALK P 134 U/L High 45-117 [facility] Comment on above: Performed By: #### L 501.4010, L500.4050, L501.5200, L100.0100, L501.2450 #### [facility] [address] [place], [address] ALT [Catalytic activity/Vol] 37 U/L Normal 16-61 [facility] Comment on above: Performed By: #### L 501.4010, L500.4050, L501.5200, L100.0100, L501.2450 #### [facility] [address] [place], [address] AST [Catalytic activity/Vol] 15 U/L Normal 15-37 [facility] Comment on above: Performed By: #### L 501.4010, L500.4050, L501.5200, L100.0100, L501.2450 #### [facility] [address] [place], [address] Bilirubin [Mass/Vol] 0.90 mg/dL Normal 0.20-1.00 [facility] Comment on above: Result Comment: For patients on eltrombopag therapy, use of Dimension [place] TBIL is not recommended. Performed By: #### L 501.4010, L500.4050, L501.5200, L100.0100, L501.2450 #### [facility] [address] [place], [address] BUN/CRE 11.6 RATIO Normal 10-20 [facility] Comment on above: Performed By: #### L 501.4010, L500.4050, L501.5200, L100.0100, L501.2450 #### [facility] [address] [place], [address] CA,Total 9.1 mg/dL Normal 8.5-10.1 [facility] Comment on above: Performed By: #### L 501.4010, L500.4050, L501.5200, L100.0100, L501.2450 #### [facility] [address] [place], [address] Chloride [Moles/Vol] 103 mmol/L Normal 98-107 [facility] Comment on above: Performed By: #### L 501.4010, L500.4050, L501.5200, L100.0100, L501.2450 #### [facility] [address] [place], [address] CO2 [Moles/Vol] 31.0 mmol/L Normal 21.0-32.0 [facility] Comment on above: Performed By: #### L 501.4010, L500.4050, L501.5200, L100.0100, L501.2450 #### [facility] [address] [place], [address] Creatinine [Mass/Vol] 1.12 mg/dL Normal 0.70-1.30 [facility] Comment on above: Result Comment: The validity of the calculated GFR GFRAA in patients over 70 years has not been determined. Clinical correlation is essential. Performed By: #### L 501.4010, L500.4050, L501.5200, L100.0100, L501.2450 #### [facility] [address] [place], [address] ECRCL 83.11 ml/min Normal [facility] Comment on above: Performed By: #### L 501.4010, L500.4050, L501.5200, L100.0100, L501.2450 #### [facility] [address] [place], [address] EST GFR - AA 89 mL/min Normal >60 [facility] Comment on above: Result Comment: Afri can [place] GFR Calc Performed By: #### L 501.4010, L500.4050, L501.5200, L100.0100, L501.2450 #### [facility] [address] [place], [address] GAP 5 Normal 5-15 [facility] Comment on above: Performed By: #### L 501.4010, L500.4050, L501.5200, L100.0100, L501.2450 #### [facility] [address] [place], [address] GFR/1.73 sq M.predicted among non-blacks MDRD (S/P/Bld) [Vol rate/Area] 73 mL/min/{1.73_m2} Normal >60 [facility] Comment on above: Result Comment: Non- GFR Calc Performed By: #### L 501.4010, L500.4050, L501.5200, L100.0100, L501.2450 #### [facility] [address] [place], [address] Globulin (S) [Mass/Vol] 4.1 g/dL Normal 2.2-4.2 [facility] Comment on above: Performed By: #### L 501.4010, L500.4050, L501.5200, L100.0100, L501.2450 #### [facility] [address] [place], [address] Glucose [Mass/Vol] 87 mg/dL Normal 74-106 [facility] Comment on above: Result Comment: Sage boss note revised GLUCOSE reference range effective 2017. Performed By: #### L 501.4010, L500.4050, L501.5200, L100.0100, L501.2450 #### [facility] [address] [place], [address] Potassium [Moles/Vol] 3.2 mmol/L Low 3.5-5.1 [facility] Comment on above: Performed By: #### L 501.4010, L500.4050, L501.5200, L100.0100, L501.2450 #### [facility] [address] [place], [address] Sodium [Moles/Vol] 139 mmol/L Normal 136-145 [facility] Comment on above: Performed By: #### L 501.4010, L500.4050, L501.5200, L100.0100, L501.2450 #### [facility] [address] [place], [address] T PROT 8.0 g/dL Normal 6.4-8.2 [facility] Comment on above: Performed By: #### L 501.4010, L500.4050, L501.5200, L100.0100, L501.2450 #### [facility] [address] [place], [address] Urea nitrogen [Mass/Vol] 13 mg/dL Normal 7-18 [facility] Comment on above: Performed By: #### L 501.4010, L500.4050, L501.5200, L100.0100, L501.2450 #### [facility] [address] [place], [address] D-Dimer Quantitative (DVT/PE )on 06-20-2020 D-DIMER QUANT 0.34 FEU/ug/m Normal 0.27-0.49 [facility] Comment on above: Result Comment: NORM AL D-Dimer level (<0.50) indicates no DVT or PE. Performed By: #### L 300.8000 #### [facility] [address] [place], [address] Emergency Department Summary on 06-20-2020 Emergency Department Summary [facility] Medical Records Department [address] [place] [address] Emergency Department Summary 06/20/20 MR#: [id number] Acct: [id number] Name: MICHA DEVLIN Rep #: [id number] : 1970 49 From: Edy Link DO PCP: Dr. Lukasz Vickers MD Status:DEP ER History of Present Illness Chief Complaint: General Illness Informant: Patient Narrative: 49-year-old male presenting with fatigue mild nausea metallic taste in mouth and chest tightness. He tells me that 1 week ago he used a Ortho ground clear spray. He did not ingest any of that that he is aware of. He denied any skin irritation or eye symptoms. He states that shortly after using it he noticed that he had a metallic taste in his mouth. Since then he developed his other symptoms. He denies any exertional components. He was down in [place] today on his way back decided it was time to come and be seen because he just does not feel right. He denies any fevers. He notes he is tested for Covid twice weekly for his job. These have all been negative. He denies any URI symptoms. Normal bowel movement yesterday but states that towards the end of the day his stools were looser than normal. Past Medical History - Allergies and Home Meds Allergies/Adverse Reactions: Allergies No Known Allergies Allergy (Verified 06/20/20 15:01) Primary Care Physician: Lukasz Vickers MD [Primary Care Provider] - Past Medical History: None Surgical History: no surgical history Smoking Status: Never smoker Drugs: None Review of Systems General: Reports: Malaise. Denies: Chills, Fever, Sweats Eyes: Denies: Visual changes - bilaterally, Diplopia ENT: Reports: - - Metallic taste in mouth. Denies: Rhinorrhea, Sore throat Cardiovascular: Reports: Chest pain - Chest tightness, Palpitations Respiratory: Denies: Dyspnea, Cough, Dyspnea on exertion Gastrointestinal: Reports: Nausea. Denies: Abdominal pain, Vomiting, Diarrhea, Melena, Hematochezia Genitourinary: Denies: Dysuria, Hematuria, Frequency Musculoskeletal: Denies: Back pain, Extremity Pain Skin: Denies: Rash, Wounds Neurological: Denies: Headache, Weakness, Numbness Physical Exam Vital Signs/Narrative: Vital Signs Temp Pulse Resp BP Pulse Ox 06/20/20 15:01 98.0 F 112 H 16 132/104 H 100 Inital Vital Signs reviewed: Yes General: Well nourished, Well developed, No Acute Distress Head: Normocephalic, Atraumatic Eyes: Perrl, EOMI ENT: Moist mucous membranes, No rhinorrhea Neck: Supple, Nontender Cardiovascular: Regular rate, No murmurs, Tachycardia Respiratory: No distress, CTA bilaterally, Chest nontender Abdomen: Soft, Nontender, Nondistended, Normal bowel sounds Back: Nontender, Normal Inspection Extremities: Nontender, No edema Skin: Normal color, No rash Neurological: Alert, Oriented x3, Cranial nerves II-XII grossly intact, Normal Strength, Normal Sensation Psychological: Normal affect, Normal Mood Diagnostic/Tx/Re-eval Clinical Impression(s) from Imaging Studies Chest X-Ray 06/20/20 15:36 IMPRESSION: No acute radiographic abnormalities. Electronically Signed: Abilio Ortiz MD at 16:14 EDT Tel , Service support , Laboratory Last Values WBC 10.0 K/mm3 (4.4-11.0) 06/20/20 15:30 RBC 5.90 M/mm3 (4.6-6.2) 06/20/20 15:30 Hgb 17.4 g/dL (13.0-16.5) H 06/20/20 15:30 Hct 52.9 % (40-54) 06/20/20 15:30 MCV 89.7 fL (80-94) 06/20/20 15:30 MCH 29.5 pg (27.0-32.0) 06/20/20 15:30 MCHC 32.9 g/dL (32-36) 06/20/20 15:30 RDW Std Deviation 41.9 fl (35.1-43.9) 06/20/20 15:30 RDW Coeff of Danilo 12.7 % (11.6-14.6) 06/20/20 15:30 Plt Count 449 K/mm3 (150-450) 06/20/20 15:30 MPV 8.9 fl (6.2-12.0) 06/20/20 15:30 Immature Gran % (Auto) 0.200 % (0.0-0.9) 06/20/20 15:30 Neut % (Auto) 73.9 % (47-70) H 06/20/20 15:30 Lymph % (Auto) 16.4 % (19-41) L 06/20/20 15:30 Lea % (Auto) 8.4 % (0-10) 06/20/20 15:30 Eos % (Auto) 0.6 % (0-5) 06/20/20 15:30 Baso % (Auto) 0.5 % (0-1) 06/20/20 15:30 Absolute Neuts (auto) 7.4 X10 3/uL (2.0-7.7) 06/20/20 15:30 Absolute Lymphs (auto) 1.63 X10 3/uL (0.83-4.51) 06/20/20 15:30 Nucleated RBC % 0 % (0-5) 06/20/20 15:30 D-Dimer Quant (PE/DVT) 0.34 FEU/ug/m (0.27-0.49) 06/20/20 15:30 Sodium 139 mmol/L (136-145) 06/20/20 15:30 Potassium 3.2 mmol/L (3.5-5.1) L 06/20/20 15:30 Chloride 103 mmol/L (98-107) 06/20/20 15:30 Carbon Dioxide 31.0 mmol/L (21.0-32.0) 06/20/20 15:30 Anion Gap 5 (5-15) 06/20/20 15:30 BUN 13 mg/dL (7-18) 06/20/20 15:30 Creatinine 1.12 mg/dL (0.70-1.30) 06/20/20 15:30 Estim Creat Clear Calc 83.11 ml/min 06/20/20 15:30 Est GFR (MDRD) Af Amer 89 mL/min (>60) 06/20/20 15:30 Est GFR (MDRD) Non-Af 73 mL/min (>60) 06/20/20 15:30 BUN/Creatinine Ratio 11.6 RATIO (10-20) 06/20/20 15:30 Glucose 87 (more content not included)... Normal [facility] Lipaseon 06-20-2020 Lipase [Catalytic activity/Vol] 99 U/L Normal 73-393 [facility] Comment on above: Performed By: #### L 501.4010, L500.4050, L501.5200, L100.0100, L501.2450 #### [facility] [address] [place], [place], [id number] Magnesiumon 06-20-2020 Magnesium [Mass/Vol] 2.2 mg/dL Normal 1.6-2.6 [facility] Comment on above: Performed By: #### L 501.4010, [id number], L501.5200, L100.0100, L501.2450 #### [facility] [address] [place], [address] Troponin-Ion 06-20-2020 Troponin I.cardiac [Mass/Vol] ng/mL Normal <0.045 [facility] Comment on above: Result Comment: TROP ONIN-I EXPECTED VALUES <0.045 Negative 0.045 - 0.590 Consistent with Cardiac Damage > OR = 0.600 Critical Value Not every elevated troponin is indicative of TX. These values should be used with clinical judgement in examining the patient's clinical picture for diagnosis. To establish a diagnosis of TX versus myocardial injury, there must be a demonstrated rise and/or fall in the troponin values, in addition to ischemic symptoms, EKG changes, new regional wall motion abnormality, and/or angiographical evidence. PLEASE NOTE: REFERENCE RANGES EDITED 17 Performed By: #### L 501.4010, [id number], [id number], L100.0100, L501.2450 #### [facility] [address] [place], [address] Vital Signs Date Time Vital Sign Value Performing Clinician Facility 04-19-2024 06:50-0500 Body mass index (BMI) [Ratio] 38.77 kg/m2 Lui Richards APRN.[employer]IC [employer]IT [employer]OLLEY DRIVER Work Phone: [facility] 04-19-2024 06:50-0500 Body weight 126.1 kg Lui Richards APRN.PUBLIC TR[employer]IT TROLLEY DRIVER Work Phone: [facility] 04-19-2024 06:50-0500 Diastolic blood pressure 88 mm[Hg] Lui Richards APRN.PUBLIC TR[employer]IT TROLLEY DRIVER Work Phone: [facility] 04-19-2024 06:50-0500 Heart rate 104 /min Lui Richards APRN.PUBLIC TR[employer]IT TROLLEY DRIVER Work Phone: [facility] 04-19-2024 06:50-0500 Respiratory rate 16 /min Lui Richards APRN.PUBLIC TR[employer]IT [employer]OLLEY DRIVER Work Phone: [facility] 04-19-2024 06:50-0500 SaO2% (BldA) [Mass fraction] 99 % Lui Richards APRN.PUBLIC TR[employer]IT [employer]OLLEY DRIVER Work Phone: [facility] 04-19-2024 06:50-0500 Systolic blood pressure 130 mm[Hg] Lui Richards APRN.PUBLIC TR[employer]IT TROLLEY DRIVER Work Phone: [facility] 10-24-2023 13:40-0400 Heart rate 96 /min Lui Richards APRN.PUBLIC TR[employer]IT [employer]OLLEY DRIVER Work Phone: [facility] 10-24-2023 13:30-0400 Body mass index (BMI) [Ratio] 37.42 kg/m2 Lui Richards APRN.[employer]IC [employer]IT [employer]OLLEY DRIVER Work Phone: [facility] 10-24-2023 13:30-0400 Body weight 121.7 kg Lui Richards BIOCHEMICAL DEVELOPMENT ENGINEER.PUBLIC TRANSIT TROLLEY DRIVER Work Phone: [facility] 10-24-2023 13:30-0400 Diastolic blood pressure 87 mm[Hg] Lui Richards BIOCHEMICAL DEVELOPMENT ENGINEER.PUBLIC TRANSIT TROLLEY DRIVER Work Phone: [facility] 10-24-2023 13:30-0400 Respiratory rate 16 /min Lui Richards BIOCHEMICAL DEVELOPMENT ENGINEER.PUBLIC TRANSIT TROLLEY DRIVER Work Phone: [facility] 10-24-2023 13:30-0400 SaO2% (BldA) [Mass fraction] 99 % Lui Richards BIOCHEMICAL DEVELOPMENT ENGINEER.PUBLIC TRANSIT TROLLEY DRIVER Work Phone: [facility] 10-24-2023 13:30-0400 Systolic blood pressure 128 mm[Hg] Lui Richards BIOCHEMICAL DEVELOPMENT ENGINEER.PUBLIC TRANSIT TROLLEY DRIVER Work Phone: [facility] 04-28-2023 14:50-0500 Body temperature 98.2 [degF] Gina Koroma MD Work Phone: [facility] 04-03-2023 15:58-0500 Body height 180.3 cm Edy Cervantes MD Work Phone: [facility] 04-03-2023 15:58-0500 Body temperature 98.01 [degF] Edy Cervantes MD Work Phone: [facility] 04-03-2023 15:58-0500 Body weight 124.83 kg Edy Cervantes MD Work Phone: [facility] 04-03-2023 15:58-0500 Diastolic blood pressure 88 mm[Hg] Edy Cervantes MD Work Phone: [facility] 04-03-2023 15:58-0500 Heart rate 84 /min Edy Cervantes MD Work Phone: [facility] 04-03-2023 15:58-0500 SaO2% (BldA) [Mass fraction] 98 % Edy Cervantes MD Work Phone: [facility] 04-03-2023 15:58-0500 Systolic blood pressure 132 mm[Hg] Edy Cervantes MD Work Phone: [facility] 04-03-2023 06:53-0500 Diastolic blood pressure 90 mm[Hg] Lui Adal BIOCHEMICAL DEVELOPMENT ENGINEER.PUBLIC TRANSIT TROLLEY DRIVER Work Phone: [facility] 04-03-2023 06:53-0500 Heart rate 84 /min Lui Adal BIOCHEMICAL DEVELOPMENT ENGINEER.PUBLIC TRANSIT TROLLEY DRIVER Work Phone: [facility] 04-03-2023 06:53-0500 Respiratory rate 18 /min Lui Adal BIOCHEMICAL DEVELOPMENT ENGINEER.PUBLIC TRANSIT TROLLEY DRIVER Work Phone: [facility] 04-03-2023 06:53-0500 Systolic blood pressure 130 mm[Hg] Lui Adal BIOCHEMICAL DEVELOPMENT ENGINEER.PUBLIC TRANSIT TROLLEY DRIVER Work Phone: [facility] 03-06-2023 23:00-0500 Respiratory rate 18 /min [facility] 03-06-2023 22:00-0500 Diastolic blood pressure 94 mm[Hg] [facility] 03-06-2023 22:00-0500 Systolic blood pressure 156 mm[Hg] [facility] 03-06-2023 20:05-0500 Body temperature 101.2 [degF] [facility] 03-06-2023 19:05-0500 Body height 180.34 cm [facility] 03-06-2023 19:05-0500 Body mass index (BMI) [Ratio] 38.3 kg/m2 [facility] 03-06-2023 19:05-0500 Body weight 124.64 kg [facility] 03-06-2023 19:05-0500 Heart rate 147 /min [facility] 03-06-2023 19:05-0500 SaO2% (BldA) [Mass fraction] 97 % [facility] 06-07-2022 08:05-0400 Body weight 126.1 kg Evan Echavarria PA-C Work Phone: [facility] 05-31-2022 09:17-0400 Body height 180.3 cm Evan Echavarria PA-C Work Phone: [facility] 05-31-2022 09:17-0400 Body temperature 98.01 [degF] Evan Echavarria PA-C Work Phone: [facility] 05-31-2022 09:17-0400 Body weight 126.1 kg Evan Echavarria PA-C Work Phone: [facility] 05-31-2022 09:17-0400 Diastolic blood pressure 88 mm[Hg] Evan Echavarria PA-C Work Phone: [facility] 05-31-2022 09:17-0400 Heart rate 100 /min Evan Echavarria PA-C Work Phone: [facility] 05-31-2022 09:17-0400 Respiratory rate 12 /min Evan Echavarria PA-C Work Phone: [facility] 05-31-2022 09:17-0400 SaO2% (BldA) [Mass fraction] 100 % Evan Echavarria PA-C Work Phone: [facility] 05-31-2022 09:17-0400 Systolic blood pressure 140 mm[Hg] Evan Echavarria PA-C Work Phone: [facility] 05-23-2022 11:30-0400 Diastolic blood pressure 78 mm[Hg] Lui Adal BIOCHEMICAL DEVELOPMENT ENGINEER.PUBLIC TRANSIT [employer]OLLEY DRIVER Work Phone: [facility] 05-23-2022 11:30-0400 Systolic blood pressure 118 mm[Hg] Lui Adal BIOCHEMICAL DEVELOPMENT ENGINEER.PUBLIC TRANSIT [employer]OLLEY DRIVER Work Phone: [facility] 05-23-2022 11:09-0400 Body temperature 97.81 [degF] Lui Adal BIOCHEMICAL DEVELOPMENT ENGINEER.PUBLIC TRANSIT TROLLEY DRIVER Work Phone: [facility] 05-23-2022 11:09-0400 Body weight 124.19 kg Lui Adal BIOCHEMICAL DEVELOPMENT ENGINEER.PUBLIC TRANSIT TROLLEY DRIVER Work Phone: [facility] 05-23-2022 11:09-0400 Heart rate 96 /min Lui Adal BIOCHEMICAL DEVELOPMENT ENGINEER.PUBLIC TRANSIT TROLLEY DRIVER Work Phone: [facility] 05-23-2022 11:09-0400 Respiratory rate 16 /min Lui Adal BIOCHEMICAL DEVELOPMENT ENGINEER.PUBLIC TRANSIT TROLLEY DRIVER Work Phone: [facility] 05-15-2022 08:31-0400 Body temperature 97.81 [degF] [facility] BIOCHEMICAL DEVELOPMENT ENGINEER.PUBLIC TRANSIT TROLLEY DRIVER Work Phone: [facility] 05-15-2022 08:31-0400 Body weight 126.64 kg [facility] BIOCHEMICAL DEVELOPMENT ENGINEER.PUBLIC TRANSIT TROLLEY DRIVER Work Phone: [facility] 05-15-2022 08:31-0400 Diastolic blood pressure 68 mm[Hg] Fco [place] BIOCHEMICAL DEVELOPMENT ENGINEER.PUBLIC TRANSIT TROLLEY DRIVER Work Phone: [facility] 05-15-2022 08:31-0400 Heart rate 96 /min [facility] BIOCHEMICAL DEVELOPMENT ENGINEER.PUBLIC TRANSIT TROLLEY DRIVER Work Phone: [facility] 05-15-2022 08:31-0400 Respiratory rate 18 /min [facility] BIOCHEMICAL DEVELOPMENT ENGINEER.PUBLIC TRANSIT TROLLEY DRIVER Work Phone: [facility] 05-15-2022 08:31-0400 SaO2% (BldA) [Mass fraction] 97 % Fco [facility] BIOCHEMICAL DEVELOPMENT ENGINEER.PUBLIC TRANSIT TROLLEY DRIVER Work Phone: [facility] 05-15-2022 08:31-0400 Systolic blood pressure 122 mm[Hg] Fco [facility] BIOCHEMICAL DEVELOPMENT ENGINEER.PUBLIC TRANSIT TROLLEY DRIVER Work Phone: [facility] 03-18-2022 11:17-0500 Body temperature 98.4 [degF] Moustapha Henry BIOCHEMICAL DEVELOPMENT ENGINEER.PUBLIC TRANSIT TROLLEY DRIVER Work Phone: [facility] 03-18-2022 11:17-0500 Body weight 123.56 kg Moustapha Henry BIOCHEMICAL DEVELOPMENT ENGINEER.PUBLIC TRANSIT TROLLEY DRIVER Work Phone: [facility] 03-18-2022 11:17-0500 Diastolic blood pressure 80 mm[Hg] Moustapha Henry BIOCHEMICAL DEVELOPMENT ENGINEER.PUBLIC TRANSIT TROLLEY DRIVER Work Phone: [facility] 03-18-2022 11:17-0500 Heart rate 127 /min Moustapha Henry BIOCHEMICAL DEVELOPMENT ENGINEER.PUBLIC TRANSIT TROLLEY DRIVER Work Phone: [facility] 03-18-2022 11:17-0500 Respiratory rate 18 /min Moustapha Henry BIOCHEMICAL DEVELOPMENT ENGINEER.PUBLIC TRANSIT TROLLEY DRIVER Work Phone: [facility] 03-18-2022 11:17-0500 SaO2% (BldA) [Mass fraction] 98 % Moustapha Henry BIOCHEMICAL DEVELOPMENT ENGINEER.PUBLIC TRANSIT TROLLEY DRIVER Work Phone: [facility] 03-18-2022 11:17-0500 Systolic blood pressure 124 mm[Hg] Moustapha Henry BIOCHEMICAL DEVELOPMENT ENGINEER.PUBLIC TRANSIT TROLLEY DRIVER Work Phone: [facility] 11-26-2021 12:13-0400 Diastolic blood pressure 76 mm[Hg] Lui Adal BIOCHEMICAL DEVELOPMENT ENGINEER.PUBLIC TRANSIT TROLLEY DRIVER Work Phone: [facility] 11-26-2021 12:13-0400 Systolic blood pressure 110 mm[Hg] Lui Adal BIOCHEMICAL DEVELOPMENT ENGINEER.PUBLIC TRANSIT TROLLEY DRIVER Work Phone: [facility] 11-26-2021 12:03-0400 Body temperature 97.81 [degF] Lui Adal BIOCHEMICAL DEVELOPMENT ENGINEER.PUBLIC TRANSIT TROLLEY DRIVER Work Phone: [facility] 11-26-2021 12:03-0400 Body weight 119.11 kg Lui Adal BIOCHEMICAL DEVELOPMENT ENGINEER.PUBLIC TRANSIT TROLLEY DRIVER Work Phone: [facility] 11-26-2021 12:03-0400 Heart rate 84 /min Lui Adal BIOCHEMICAL DEVELOPMENT ENGINEER.PUBLIC TRANSIT TROLLEY DRIVER Work Phone: [facility] 11-26-2021 12:03-0400 Respiratory rate 16 /min Lui Adal BIOCHEMICAL DEVELOPMENT ENGINEER.PUBLIC TRANSIT TROLLEY DRIVER Work Phone: [facility] 09-24-2021 12:13-0400 Body height 180.3 cm Lui Adal BIOCHEMICAL DEVELOPMENT ENGINEER.PUBLIC TRANSIT TROLLEY DRIVER Work Phone: [facility] 09-24-2021 12:13-0400 Body temperature 97.59 [degF] Lui Adal BIOCHEMICAL DEVELOPMENT ENGINEER.PUBLIC TRANSIT TROLLEY DRIVER Work Phone: [facility] 09-24-2021 12:13-0400 Body weight 119.3 kg Lui Richards APRN.PUBLIC TR[employer]IT TROLLEY DRIVER Work Phone: [facility] 09-24-2021 12:13-0400 Diastolic blood pressure 88 mm[Hg] Lui Richards APRN.PUBLIC TRANSIT [employer]OLLEY DRIVER Work Phone: [facility] 09-24-2021 12:13-0400 Heart rate 86 /min Lui Richards APRN.PUBLIC TR[employer]IT [employer]OLLEY DRIVER Work Phone: [facility] 09-24-2021 12:13-0400 Respiratory rate 16 /min Lui Richards APRN.PUBLIC TRANSIT TROLLEY DRIVER Work Phone: [facility] 09-24-2021 12:130400 Systolic blood pressure 136 mm[Hg] Lui Richards APRN.PUBLIC TRANSIT TROLLEY DRIVER Work Phone: [facility] Encounters Encounter Date Encounter Type Care Provider Facility Start: 05-14-2024 End: 07-14-2024 Follow-up encounter Lui Richards APRN.PUBLIC TR[employer]IT [employer]OLLEY DRIVER Work Phone: [facility] Start: 04-19-2024 End: 04-19-2024 ambulatory LUI RICHARDS Facility:[facility] Start: 04-19-2024 End: 04-19-2024 Patient encounter status Lui Richards APRN.PUBLIC TR[employer]IT [employer]OLLEY DRIVER Work Phone: [facility] Work Phone: Start: 04-19-2024 End: 04-19-2024 Periodic preventive med est patient 40-64yrs Lui Richards APRN.PUBLIC TR[employer]IT TROLLEY DRIVER Work Phone: [facility] [place] Comment on above: Wellness examination (Primary Dx); Primary hypertension; ED (erectile dysfunction) of organic origin; Hyperlipidemia, unspecified hyperlipidemia type; Elevated glucose; Screening for colon cancer Start: 03-15-2024 End: 03-15-2024 Telephone encounter Lukasz Vicekrs MD Work Phone: [facility] Comment on above: Results Start: 10-31-2023 End: 10-31-2023 Chart abstracting Lukasz Vickers MD Work Phone: [facility] Start: 10-24-2023 End: 10-24-2023 Office outpatient visit 25 minutes Lui Adal BIOCHEMICAL DEVELOPMENT ENGINEER.PUBLIC TRANSIT TROLLEY DRIVER Work Phone: [facility] Comment on above: Primary hypertension (Primary Dx); ED (erectile dysfunction) of organic origin; Screening for depression; Encounter for screening examination for other mental health and behavioral disorders; Screening for prostate cancer; Hyperlipidemia, unspecified hyperlipidemia type; Elevated glucose Start: 10-24-2023 End: 10-24-2023 ambulatory LUI RICHARDS Facility:[facility] Start: 10-19-2023 End: 10-19-2023 Refill Lui Adal BIOCHEMICAL DEVELOPMENT ENGINEER.PUBLIC TRANSIT TROLLEY DRIVER Work Phone: [facility] Comment on above: Refill Request Start: 07-25-2023 Refill Lui TO RN.PUBLIC TR[employer]IT TROLLEY DRIVER Work Phone: [facility] Comment on above: Refill Request Start: 05-29-2023 Refill Lui TO RN.PUBLIC TRANSIT TROLLEY DRIVER Work Phone: [facility] Comment on above: Refill Request Start: 04-28-2023 End: 04-28-2023 ambulatory GINA KOROMA Facility:[facility] Start: 04-28-2023 End: 04-28-2023 Patient encounter procedure Gina Koroma MD Work Phone: General Surgery Comment on above: Status post skin and subcutaneous tissue surgery (Primary Dx) Start: 04-21-2023 End: 04-21-2023 ambulatory Edy Cervantes Facility:[facility] Start: 04-03-2023 End: 04-03-2023 Patient encounter procedure Edy Cervantes MD Work Phone: General Surgery Comment on above: Subcutaneous mass of back (Primary Dx) Start: 04-03-2023 End: 01-02-2024 Telephone encounter Edy Cervantes MD Work Phone: General Surgery Comment on above: 04/21/2023 EXC SUB Q LESION LEFT UPPER BACK BRIGHTON Start: 04-03-2023 End: 04-03-2023 Office outpatient visit 25 minutes Lui Adal BIOCHEMICAL DEVELOPMENT ENGINEER.PUBLIC TRANSIT TROLLEY DRIVER Work Phone: [facility] Comment on above: Primary hypertension (Primary Dx); Lipoma of back; Hyperlipidemia, unspecified hyperlipidemia type; Elevated LFTs; Elevated glucose; Class 2 obesity with body mass index (BMI) of 38.0 to 38.9 in adult, unspecified obesity type, unspecified whether serious comorbidity present Start: 03-30-2023 Admission to [facility] Frida Conner PA-C Work Phone: General Surgery Comment on above: General Surgery Appo intment Start: 03-30-2023 E-mail encounter lori m caregiver Frida Conner PA-C Work Phone: [facility] Start: 03-30-2023 Telephone encounter Fridamehdi MERRILL-Ed Work Phone: General Surgery Start: 03-24-2023 End: 03-24-2023 Subsequent hospital visit by physician [facility] Work Phone: Radiology Comment on above: Subcutaneous mass of back [R22.2] Start: 03-06-2023 End: 03-06-2023 Emergency department patient visit [facility] Work Phone: Start: 11-19-2022 Refill Lui TO RN.CNP Work Phone: [facility] Comment on above: Refill Request Start: 06-07-2022 End: 06-07-2022 Patient encounter procedure Evan MERRILL-Ed Work Phone: Urology Comment on above: ED (erectile dysfunc tion) of organic origin (Primary Dx) Start: 05-31-2022 Telephone encounter Evan calvert PA-C Work Phone: Urology Comment on above: Appointment Start: 05-31-2022 End: 05-31-2022 Patient encounter procedure Evan Echavarria PA-C Work Phone: Urology Comment on above: ED (erectile dysfunc tion) of organic origin Start: 05-23-2022 End: 05-23-2022 Office outpatient visit 25 minutes Lui Richards APRN.PUBLIC TR[employer]IT [employer]OLLEY DRIVER Work Phone: [facility] Comment on above: ED (erectile dysfunc tion) of organic origin (Primary Dx); Essential hypertension; Eustachian tube dysfunction, bilateral; Acute recurrent maxillary sinusitis Start: 05-15-2022 End: 05-15-2022 Office outpatient visit 25 minutes Fco Toney APRN.PUBLIC TRANSIT TROLLEY DRIVER Work Phone: [facility] Comment on above: Acute maxillary sinu sitis, recurrence not specified (Primary Dx) Start: 04-15-2022 ambulatory Lui TO RN.PUBLIC TRANSIT TROLLEY DRIVER Work Phone: [facility] Comment on above: Sinus infection Start: 03-18-2022 End: 03-18-2022 Patient encounter procedure Moustapha Henry APRN.PUBLIC TRANSIT TROLLEY DRIVER Work Phone: [facility] Comment on above: Sinobronchitis (Prim belem Dx) Start: 12-30-2021 Refill Lukasz patel MD Work Phone: [facility] Comment on above: Refill Request Start: 11-26-2021 End: 11-26-2021 Office outpatient visit 15 minutes Lui Richards APRN.PUBLIC TRANSIT TROLLEY DRIVER Work Phone: [facility] Comment on above: Bilateral hip pain ( Primary Dx); Cervical radiculopathy; ED (erectile dysfunction) of organic origin; Encounter for immunization; Screening for colon cancer Start: 09-24-2021 End: 09-24-2021 Subsequent hospital visit by physician Lisa [facility] [place] Work Phone: Radiology Comment on above: Bilateral hip pain [ M25.551, M25.552] Start: 09-24-2021 End: 09-24-2021 Office outpatient visit 40 minutes Lui Richards APRN.PUBLIC TRANSIT TROLLEY DRIVER Work Phone: [facility] Comment on above: Primary hypertension (Primary Dx); Bilateral hip pain; Cervical radiculopathy; Obesity, Class II, BMI 35-39.9; Elevated glucose; Screening for colon cancer; Encounter for immunization; Chronic pain of both shoulders; ED (erectile dysfunction) of organic origin Procedures Date Procedure Procedure Detail Performing Clinician Start: 03-11-2024 Comprehensive metabolic 2000 panel - Serum or Plasma [facility] Provider Start: 03-11-2024 Hemoglobin A1c/Hemoglobin.total in Blood [facility] Provider Start: 03-11-2024 Lipid panel [facility] Provider Start: 03-11-2024 Lipid 1996 panel - Serum or Plasma Lukasz Vickers MD Work Phone: Start: 10-24-2023 Adult depression screening assessment Lui Richards APRN.PUBLIC TRANSIT TROLLEY DRIVER Work Phone: Start: 10-20-2023 Lipid panel [facility] Provider Start: 10-20-2023 MICROALBUMIN/CREATININE UR W RATIO (EXTERNAL) [facility] Provider Start: 10-20-2023 Lipid 1996 panel - Serum or Plasma Lukasz Vickers MD Work Phone: Start: 03-24-2023 Us chest real time w/image documentation Frida Conner PA-C Work Phone: Start: 03-06-2023 CT angiography of chest with contrast Start: 03-06-2023 Plain chest X-ray Start: 03-06-2023 SARS-CoV-2, Influenza & RSV (PCR) Start: 09-24-2021 Radex spine cervical 4 or 5 views Lui Richards APRN.CNP Work Phone: Start: 09-24-2021 Adult depression screening assessment Lui Richards APRN.CNP Work Phone: Start: 06-30-2018 Lipid 1996 panel - Serum or Plasma Lui Richards APRN.PUBLIC TRANSIT TROLLEY DRIVER Work Phone: H/O: surgery Status post skin and subcutaneous tissue surgery Gina Koroma MD Work Phone: Plan of Treatment Date Care Activity Detail Author Start: 03-12-2029 Prostate specific antigen measurement Prostate Cancer Screening Discussion [facility] Start: 03-11-2029 Lipid panel Lipid Screening [facility] Start: 10-19-2028 Lipid panel Lipid Screening [facility] Start: 05-09-2027 Screening for malign ant neoplasm of colon [facility] Start: 03-11-2027 Diabetes Screening Diabetes Screenin g [facility] Start: 04-19-2025 Annual PCP Team Architectural Draftsperson avelino Disease Visit Annual PCP Team Chronic Disease Visit [facility] Start: 02-26-2025 Urine microalbumin profile [facility] Start: 10-28-2024 Influenza vaccination Influenz a Vaccine (Season Ended) [facility] Start: 10-25-2024 DIABET[facility]CRE[facility] Start: 10-25-2024 Diabetes Screening Diabetes Screenin g [facility] Start: 10-23-2024 Annual PCP Team Architectural Draftsperson avelino Disease Visit Annual PCP Team Chronic Disease Visit [facility] Start: 10-23-2024 Anxiety Screening Anxiety Screening [facility] Start: 10-23-2024 Depression Screening Depression Scre ening [facility] Start: 10-18-2024 End: 10-18-2024 Patient encounter procedure 10/18/2024 7:00 AM EDT Office Visit [facility] [address] [place] [address] Lui Richards APRN.PUBLIC TRANSIT TROLLEY DRIVER [address] [place], [place] [address] 6 month follow up [facility] Comment on above: 6 month follow up Start: 10-17-2024 End: 01-16-2025 Comprehensive metabolic 2000 panel - Serum or Plasma COMPREHENSIVE METABOLIC PANEL Lab Routine Primary hypertension Hyperlipidemia, unspecified hyperlipidemia type Expected: 10/17/2024 (Approximate), Expires: 01/16/2025 [facility] Comment on above: Expected: 10/17/2024 (Approximate), Expires: 01/16/2025 Start: 10-17-2024 End: 01-16-2025 Hemoglobin A1c in Blood HEMOGLOBIN A1C Lab Routine Elevated glucose Expected: 10/17/2024 (Approximate), Expires: 01/16/2025 [facility] Comment on above: Expected: 10/17/2024 (Approximate), Expires: 01/16/2025 Start: 10-17-2024 End: 01-16-2025 Lipid 1996 panel - Serum or Plasma LIPID PANEL BASIC Lab Routine Hyperlipidemia, unspecified hyperlipidemia type Expected: 10/17/2024 (Approximate), Expires: 01/16/2025 [facility] Work Phone: Comment on above: Expected: 10/17/2024 (Approximate), Expires: 01/16/2025 Start: 08-26-2024 Influenza vaccination Influenza Vacc ine (#1) [facility] Comment on above: Postponed from 10/28 (Declined at this time) Start: 04-26-2024 End: 04-26-2024 Patient encounter procedure 04/26/2024 7:00 AM EST Office Visit Family [facility] [address], [place] [id number] Lui Richards APRN.PUBLIC TRANSIT TROLLEY DRIVER [address] [place] [address] 6 month follow up [facility] Comment on above: 6 month follow up Start: 04-25-2024 End: 07-25-2024 Comprehensive metabolic 2000 panel - Serum or Plasma COMPREHENSIVE METABOLIC PANEL Lab Routine Primary hypertension Expected: 04/25/2024 (Approximate), Expires: 07/25/2024 [facility] Comment on above: Expected: 04/25/2024 (Approximate), Expires: 07/25/2024 Start: 04-25-2024 End: 07-25-2024 Hemoglobin A1c in Blood HEMOGLOBIN A1C Lab Routine Elevated glucose Expected: 04/25/2024 (Approximate), Expires: 07/25/2024 [facility] Comment on above: Expected: 04/25/2024 (Approximate), Expires: 07/25/2024 Start: 04-25-2024 End: 07-25-2024 Lipid 1996 panel - Serum or Plasma LIPID PANEL BASIC Lab Routine Hyperlipidemia, unspecified hyperlipidemia type Expected: 04/25/2024 (Approximate), Expires: 07/25/2024 [facility] Comment on above: Expected: 04/25/2024 (Approximate), Expires: 07/25/2024 Start: 04-25-2024 End: 07-25-2024 PSA/PROSTATE SPECIFIC ANTIGEN SCREENING PSA/PROSTATE SPECIFIC ANTIGEN SCREENING Lab Routine Screening for prostate cancer Expected: 04/25/2024 (Approximate), Expires: 07/25/2024 [facility] Work Phone: Comment on above: Expected: 04/25/2024 (Approximate), Expires: 07/25/2024 Start: 04-03-2024 Annual PCP Team Architectural Draftsperson avelino Disease Visit Annual PCP Team Chronic Disease Visit [facility] Start: 03-03-2024 Annual PCP Team Architectural Draftsperson avelino Disease Visit Annual PCP Team Chronic Disease Visit [facility] Start: 03-03-2024 Covid-19 Vaccine (#1) Covid-19 Vacci ne (#1) [facility] Comment on above: Postponed from 01/12 (Declined at this time) Start: 03-03-2024 Covid-19 Vaccine () Covid-19 Vaccine () [facility] Comment on above: Postponed from 10/28 (Declined at this time) Start: 03-03-2024 Screening for malign ant neoplasm of colon [facility] Start: 10-29-2023 Covid-19 Vaccine () Covid-19 Vaccine () [facility] Start: 10-29-2023 Covid-19 Vaccine () Covid-19 Vaccine () [facility] Start: 10-29-2023 Influenza vaccination [facility] Start: 10-24-2023 End: 10-24-2023 Patient encounter procedure 10/24/2023 2:00 PM EDT Office Visit [facility] [address], [place] [id number] Lui Richards, SAL.PUBLIC TRANSIT TROLLEY DRIVER [address] [place], [place] [id number] 6 Month F/U [facility] Comment on above: 6 Month F/U Start: 10-02-2023 End: 01-01-2024 Comprehensive metabolic 2000 panel - Serum or Plasma COMP METABOLIC PANEL Lab Routine Primary hypertension Hyperlipidemia, unspecified hyperlipidemia type Elevated LFTs Expected: 10/02/2023 (Approximate), Expires: 01/01/2024 [facility] Work Phone: Comment on above: Expected: 10/02/2023 (Approximate), Expires: 01/01/2024 Start: 10-02-2023 End: 11-04-2024 Hemoglobin A1c in Blood HGB A1C Lab Routine Elevated glucose Expected: 10/02/2023 (Approximate), Expires: 01/01/2024 [facility] Work Phone: Comment on above: Expected: 10/02/2023 (Approximate), Expires: 01/01/2024 Start: 10-02-2023 End: 01-01-2024 Lipid 1996 panel - Serum or Plasma LIPID PANEL BASIC Lab Routine Hyperlipidemia, unspecified hyperlipidemia type Expected: 10/02/2023 (Approximate), Expires: 01/01/2024 [facility] Work Phone: Comment on above: Expected: 10/02/2023 (Approximate), Expires: 01/01/2024 Start: 10-02-2023 End: 10-02-2023 Patient encounter procedure 10/02/2023 7:00 AM EDT Office Visit [facility] [address], [place] [phone] Lui Richards APRN.PUBLIC TRANSIT TROLLEY DRIVER [address] [place], [place] [phone] 6 Month F/U [facility] Comment on above: 6 Month F/U Start: 08-27-2023 Influenza vaccination Influenza Vacc ine (#1) [facility] Comment on above: Postponed from 10/28 (Declined at this time) Start: 07-13-2023 Prostate specific antigen measurement Prostate Cancer Screening Discussion [facility] Start: 07-01-2023 Lipid 1996 panel - Serum or Plasma Lipid Screening [facility] Start: 07-01-2023 Lipid panel Lipid Screening [facility] Start: 07-01-2023 LIPID SCREEN LIPID SCREEN [facility] Start: 05-24-2023 ANNUAL PCP TEAM TOEING STOCKINGS AVELINO DISEASE VISIT ANNUAL PCP TEAM CHRONIC DISEASE VISIT [facility] Start: 05-24-2023 BP CONTROLLED (<130/80) BP CONTROLLE D (<130/80) [facility] Start: 05-16-2023 BP CONTROLLED (<130/80) BP CONTROLLE D (<130/80) [facility]: [facility] Start: 02-27-2023 Behavioral Health Screening Behavioral Health Screening [facility] Start: 11-26-2022 ANNUAL PCP TEAM TOEING STOCKINGS AVELINO DISEASE VISIT ANNUAL PCP TEAM CHRONIC DISEASE VISIT [facility] Start: 11-26-2022 BP CONTROLLED (<130/80) BP CONTROLLE D (<130/80) [facility] Start: 11-26-2022 COLORECTAL CANCER SCREENING COLORECTAL CANCER SCREENING [facility] Start: 11-26-2022 FECAL OCCULT BLOOD FECAL OCCULT BLOO D [facility] Start: 11-26-2022 Screening for malign ant neoplasm of colon [facility] Start: 10-28-2022 Influenza vaccination [facility] Start: 09-24-2022 Adult depression screening assessment DEPRESSION SCREENING [facility] Start: 09-24-2022 ANNUAL PCP TEAM TOEING STOCKINGS AVELINO DISEASE VISIT ANNUAL PCP TEAM CHRONIC DISEASE VISIT [facility] Start: 09-24-2022 BP CONTROLLED (<130/80) BP CONTROLLE D (<130/80) [facility] Start: 09-24-2022 COVID-19 VACCINE (#1) COVID-19 VACCI NE (#1) [facility] Comment on above: Postponed from 01/12 (Declined at this time) Start: 08-26-2022 Influenza vaccination INFLUENZA (#1) [facility] Comment on above: Postponed from 10/28 (Declined at this time) Start: 02-27-2022 DEPRESSION ASSESSMENT DEPRESSION ASS ESSMENT [facility] Start: 11-19-2021 SHINGRIX VACCINE (2 of 2) SHINGRIX VACCINE (2 of 2) [facility] Start: 10-28-2021 Influenza vaccination INFLUENZA (#1) [facility] Start: 09-24-2021 End: 11-24-2021 Comprehensive metabolic 2000 panel - Serum or Plasma COMP METABOLIC PANEL Lab Routine Expected: 09/24/2021, Expires: 11/24/2021 [facility] Work Phone: Comment on above: Expected: 09/24/2021 , Expires: 11/24/2021 Start: 09-24-2021 End: 11-24-2021 Hemoglobin A1c in Blood HGB A1C Lab Routine Elevated glucose Expected: 09/24/2021, Expires: 11/24/2021 [facility] Work Phone: Comment on above: Expected: 09/24/2021 , Expires: 11/24/2021 Start: 09-24-2021 End: 11-24-2021 TESTOSTERONE, FREE AND TOTAL TESTOSTERONE, FREE AND TOTAL Lab Routine ED (erectile dysfunction) of organic origin Expected: 09/24/2021, Expires: 11/24/2021 [facility] Work Phone: Comment on above: Expected: 09/24/2021 , Expires: 11/24/2021 Start: 09-24-2021 End: 11-24-2021 Urinalysis complete panel - Urine URINALYSIS, WITH MICROSCOPIC Lab Routine ED (erectile dysfunction) of organic origin Expected: 09/24/2021, Expires: 11/24/2021 [facility] Work Phone: Comment on above: Expected: 09/24/2021 , Expires: 11/24/2021 Start: 06-30-2021 DIABETES SCREEN DIABETES SCREEN [facility] Start: 2018 Pneumococcal Vaccine : 50+ (1 of 1 - PCV) Pneumococcal Vaccine: 50+ (1 of 1 - PCV) [facility] Start: 2013 COLOGUARD (FIT-DNA) COLOGUARD (FIT-D NA) [facility] Start: 2013 Colonoscopy COLONOSCOPY [facility] Start: 2013 COLORECTAL CANCER SCREENING COLORECTAL CANCER SCREENING [facility] Start: [address] COLONOGRAPHY [facility] Start: 2013 FECAL OCCULT BLOOD FECAL OCCULT BLOO D [facility] Start: 2013 Screening for malign ant neoplasm of colon [facility] Start: 2013 SIGMOIDOSCOPY SIGMOIDOSCOPY [facility] Start: 1986 Anxiety Screening Anxiety Screening [facility] Start: 1986 Depression Screening Depression Scre ening [facility] Start: 01-12-1969 Covid-19 Vaccine (#1) Covid-19 Vacci ne (#1) [facility] Start: 1968 HEPATITIS B (1 of 3 - 3-dose series) HEPATITIS B (1 of 3 - 3-dose series) [facility] Start: 1970 Hepatitis B Vaccine (1 of 3 - 3-dose series) Hepatitis B Vaccine (1 of 3 - 3-dose series) [facility] COLOGUARD COLOGUARD Lab Ro utine Screening for colon cancer Ordered: 04/19/2024 [facility] Comment on above: Ordered: 04/19/2024 Hemoglobin.gastroint est inal.lower [Presence] in Stool by Immunoassay FECAL OCCULT BLOOD TEST Lab Routine Screening for colon cancer Ordered: 09/24/2021 [facility] Work Phone: Comment on above: Ordered: 09/24/2021 Hemoglobin.gastroint est inal.lower [Presence] in Stool by Immunoassay FECAL OCCULT BLOOD TEST Lab Routine Screening for colon cancer 11/26/2021 7:45 AM EDT [facility] Work Phone: Patient Education ED Chest Pain, Uncertain Cause ED Viral Syndrome (Adult) [facility] Work Phone: Patient referral [facility] Work Phone: Radex spine cervical 4 or 5 views XR CERV OTHER 4V AP/LAT/OBL Radiology Routine Cervical radiculopathy 09/24/2021 1:11 PM EDT [facility] Work Phone: [facility] Immunizations Immunization Date Immunization Notes Care Provider Tristan garcia 11-26-2021 zoster vaccine recombinant Lui Adal BIOCHEMICAL DEVELOPMENT ENGINEER.PUBLIC TRANSIT TROLLEY DRIVER Work Phone: [facility] 09-24-2021 zoster vaccine recombinant Lui Adal BIOCHEMICAL DEVELOPMENT ENGINEER.PUBLIC TRANSIT TROLLEY DRIVER Work Phone: [facility] 01-10-2018 influenza virus vacc ine, unspecified formulation Lui Adal BIOCHEMICAL DEVELOPMENT ENGINEER.PUBLIC TRANSIT TROLLEY DRIVER Work Phone: [facility] 02-26-2015 tetanus toxoid, redu manas diphtheria toxoid, and acellular pertussis vaccine, adsorbed Lui Adal BIOCHEMICAL DEVELOPMENT ENGINEER.PUBLIC TRANSIT TROLLEY DRIVER Work Phone: [facility] Payers Date Payer Category Payer Private Health Insurance [id number] 2011 Private Health Insurance [employer] A ETNA CHOICE POS II [id number] 2011-Present [phone] [address] [place] [address] POS [id number] 2011 Private Health Insurance [id number] Private Health Insurance [employer] [id number] Self-pay SELF PAY INSURANCE [id number] Social History Date Type Detail Facility Start: 02-16-2011 [facility] Start: 09-24-2021 End: 05-23-2022 Alcohol intake Current drinker of alcohol (finding) [facility] Start: 06-23-2014 History SDOH Alcohol Comment minimal <1 per week. [facility] Start: 1970 Sex Assigned At Not on file [facility] Start: 09-14-2021 End: 11-26-2021 Exposure to SARS-CoV-2 (event) Not sure [facility] Start: 02-16-2011 Tobacco use and exposure Smokeless tobacco non-user [facility] Start: 05-31-2022 End: 04-19-2024 Alcohol intake Ex-drinker (finding) [facility] Start: 06-07-2022 End: 10-24-2023 History of Social function [facility] Work Phone: Start: 06-07-2022 End: 10-24-2023 Tobacco use panel [facility] Work Phone: Adult Depression Screening Assessment 0 [facility] Work Phone: Start: 03-06-2023 Tobacco [facility] if ever smoked [facility] Start: 06-20-2020 None [facility] Start: 1970 Sex Assigned At Male W [facility] Medical Equipment Procedure Code Equipment Code Equipment Origin al Text Equipment Identifier Dates Patch Ventralex St Sepra Sorbaflex 2.5in Medium [employer] - [id number] Start: 04-01-2015 Functional Status Date Assessment Result Facility 08-04-2014 Are you deaf, or do you have serious difficulty hearing No 08/04/2014 11:03 AM EDT Devi Pichardo MA No [facility] 08-04-2014 Are you blind, or do you have serious difficulty seeing, even when wearing glasses No 08/04/2014 11:03 AM EDT Devi Pichardo MA No [facility] 08-04-2014 Do you have serious difficulty walking or climbing stairs No 08/04/2014 11:03 AM EDT Devi Pichardo MA [facility] 08-04-2014 Do you have difficul ty dressing or bathing No 08/04/2014 11:03 AM EDT eDvi Pichardo MA [facility] 08-04-2014 Because of a physica l, mental, or emotional condition, do you have difficulty doing errands alone such as visiting a physician's office or shopping No 08/04/2014 11:03 AM EDT Devi Pichardo MA [facility] Mental Status Date Assessment Result Facility 03-06-2023 Cognitive function Voice/Name [facility] Work Phone: 08-04-2014 Because of a physica l, mental, or emotional condition, do you have serious difficulty concentrating, remembering, or making decisions No 08/04/2014 11:03 AM EDT Devi Pichardo MA [facility] Clinical Notes 03-31-2011 to 04-19-2024 Patient Lui Peacock APRN.CNP - 04/19/2024 7:00 AM ESTTelephone Encounter - Lui Richards APRN.CNP - 03/15/2024 7:14 AM Lui Bar APRN.CNP - 10/24/2023 2:00 PM EDT Note Date & Type Note Facility 04-19-2024 Instructions Lui Richards APRN.CNP - 04/19/2024 7:08 AM EST For diet, please focus on: - More lean meats like chicken, fish, turkey rather than red meats - Less carbs and when having carbs, more complex carbs such as beans, wheat or multigrain and brown rice - more vegetables - health fats such as olive oil, nuts, avocados For exercise: Please try and aim for a goal of 30 min a day most days of the week with a goal of 150min/wk. Brisk walking is plenty, if you can increase it later, then that is good, but if you are going from little or no exercise to this new routine, I do not want you to go too extreme. If you already exercise, I encourage you to try and do a little more than what you have been doing. Repeat labs in 6 months Continue current medications Cologuard will come to your house Follow up in 6 months. Lui Richards APRN.DANITA documented in this encounter [facility] 04-19-2024 History of Presen t illness Narrative Chief Complaint Patient presents with: Yearly Exam HPI Micha Devlin is a 53 year old male who presents here today for Chronic Medical Conditions. Patient is here for wellness exam and medication follow-up. Patient had labs completed prior to our visit today. We will review. PSA normal at 1.7. Hemoglobin A1c 5.7%. History of prediabetes, we have been following. He is not on any medication for this. Reviewed cholesterol panel with patient, total cholesterol elevated at 223, HDL 40, LDL 160. We discussed that his 10-year risk is defined as 9.6%. His lifetime risk is 50%. I did recommend that he start a cholesterol medication. He declined at this time. Feels like he does not need it. Does not follow any particular diet. Admits he does not really exercise at all during the winter months. He does stay active around the household with projects. No particular diet. At this time he denies any chest pain, shortness of breath, abdominal pain, blood in stool or urine, fevers, chills, eye or nose problems. Past medical history, appointments, medications, allergies reviewed. EXAM: BP 130/88 (BP Position: Sitting) Pulse 104 Resp 16 Wt 126.1 kg (278 lb) SpO2 99% BMI 38.77 kg/m General Appearance: Well appearing, alert, in no acute distress, well-hydrated, well nourished. and Overweight. Head: Normocephalic, no masses, lesions, tenderness or abnormalities. Eyes: Anicteric sclera. Pupils are equally round and reactive to light. Extraocular movements are intact. . Ears: External ears normal, canals clear. Nose/Sinuses: Nares normal, septum midline, mucosa normal, [...] No masses, organomegaly. Extremities: No deformities, edema External labs reviewed ASSESSMENT/PLAN: 1. Wellness examination - ICD9: V70.0, ICD10: Z00.00 (primary diagnosis) - Counseled on healthy diet and regular exercise - Colorectal cancer screening - ordered Cologuard - PSA completed. 2. Primary hypertension - ICD9: 401.9, ICD10: I10 - Controlled - Continue current medications - Recommend home blood pressure monitoring, to bring results to next visit - Encouraged sodium restriction, DASH or Mediterranean diet - Recommend regular aerobic exercise - COMPREHENSIVE METABOLIC PANEL - LISINOPRIL 10 MG-HYDROCHLOROTHIAZIDE 12.5 MG TABLET - AMLODIPINE 5 MG TABLET 3. ED (erectile dysfunction) of organic origin - ICD9: 607.84, ICD10: N52.9 - Stable, continue current medication - TADALAFIL 10 MG TABLET 4. Hyperlipidemia, unspecified hyperlipidemia type - ICD9: 272.4, ICD10: E78.5 - Uncontrolled - Counseled on healthy diet and regular exercise -Elevated risk. Recommended statin, patient declined at this time. Will continue to monitor. - LIPID PANEL BASIC - COMPREHENSIVE METABOLIC PANEL 5. Elevated glucose - ICD9: 790.29, ICD10: R73.09 - Continue to monitor - HEMOGLOBIN A1C 6. Screening for colon cancer - ICD9: V76.51, ICD10: Z12.11 - COLOGUARD Lui Richards APRN.CNP RTO in 6 months, sooner if needed. This note was partly generated using [email or web address] voice recognition dictation and may contain some misspelled or inaccurate words missed on review. documented in this encounter [facility] 04-19-2024 Note HNO ID: [id number] Author: LUI RICHARDS APRN.CNP Service: ? Author Type: Nurse Practitioner Type: Progress Notes Filed: 04/19/2024 07:17 Note Text: Chief Complaint Patient presents with: Yearly Exam HPI Micha Devlin is a 53 year old male who presents here today for Chronic Medical Conditions. Patient is here for wellness exam and medication follow-up. Patient had labs completed prior to our visit today. We will review. PSA normal at 1.7. Hemoglobin A1c 5.7%. History of prediabetes, we have been following. He is not on any medication for this. Reviewed cholesterol panel with patient, total cholesterol elevated at 223, HDL 40, LDL 160. We discussed that his 10-year risk is defined as 9.6%. His lifetime risk is 50%. I did recommend that he start a cholesterol medication. He declined at this time. Feels like he does not need it. Does not follow any particular diet. Admits he does not really exercise at all during the winter months. He does stay active around the household with projects. No particular diet. At this time he denies any chest pain, shortness of breath, abdominal pain, blood in stool or urine, fevers, chills, eye or nose problems. Past medical history, appointments, medications, allergies reviewed. EXAM: BP 130/88 (BP Position: Sitting) Pulse 104 Resp 16 Wt 126.1 kg (278 lb) SpO2 99% BMI 38.77 kg/m? General Appearance: Well appearing, alert, in no acute distress, well-hydrated, well nourished. and Overweight. Head: Normocephalic, no masses, lesions, tenderness or abnormalities. Eyes: Anicteric sclera. Pupils are equally round and reactive to light. Extraocular movements are intact. . Ears: External ears normal, canals clear. Nose/Sinuses: Nares normal, septum midline, mucosa normal, [...] No masses, organomegaly. Extremities: No deformities, edema External labs reviewed ASSESSMENT/PLAN: 1. Wellness examination - ICD9: V70.0, ICD10: Z00.00 (primary diagnosis) - Counseled on healthy diet and regular exercise - Colorectal cancer screening - ordered Cologuard - PSA completed. 2. Primary hypertension - ICD9: 401.9, ICD10: I10 - Controlled - Continue current medications - Recommend home blood pressure monitoring, to bring results to next visit - Encouraged sodium restriction, DASH or Mediterranean diet - Recommend regular aerobic exercise - COMPREHENSIVE METABOLIC PANEL - LISINOPRIL 10 MG-HYDROCHLOROTHIAZIDE 12.5 MG TABLET - AMLODIPINE 5 MG TABLET 3. ED (erectile dysfunction) of organic origin - ICD9: 607.84, ICD10: N52.9 - Stable, continue current medication - TADALAFIL 10 MG TABLET 4. Hyperlipidemia, unspecified hyperlipidemia type - ICD9: 272.4, ICD10: E78.5 - Uncontrolled - Counseled on healthy diet and regular exercise -Elevated risk. Recommended statin, patient declined at this time. Will continue to monitor. - LIPID PANEL BASIC - COMPREHENSIVE METABOLIC PANEL 5. Elevated glucose - ICD9: 790.29, ICD10: R73.09 - Continue to monitor - HEMOGLOBIN A1C 6. Screening for colon cancer - ICD9: V76.51, ICD10: Z12.11 - COLOGUARD Lui Richards APRN.PUBLIC TRANSIT TROLLEY DRIVER RTO in 6 months, sooner if needed. This note was partly generated using Pathflow voice recognition dictation and may contain some misspelled or inaccurate words missed on review. [facility] 03-15-2024 Telephone encounter Note Labs reviewed. I will discuss at upcoming visit. Lui Richards APRN.DANITA [facility] 03-15-2024 Miscellaneous Notes Labs reviewed. I will discuss at upcoming visit. Lui Richards APRN.DANITA Fax received from outside lab, results put in enter/edit. Fax on providers desk to review. documented in this encounter [facility] 03-15-2024 Telephone encounter Note Fax received from outside lab, results put in enter/edit. Fax on providers desk to review. [facility] 10-24-2023 History of Presen t illness Narrative Chief Complaint Patient presents with: Follow Up: 6 month HPI Micha Devlin is a 53 year old male who presents here today for Chronic Medical Conditions. Had blood work completed at the [facility] since works for the [employer]. We are waiting on the documents. HTN: Patient is compliant with meds Yes Monitors bp at home: infrequently. Denies side effects: Yes. Chest pain: No. Dyspnea: No. Edema: No. Palpitations: No. Syncope: No. Headache: No. Dizziness: No. ED: Using Cialsis with benefit. Needs refills. Past medical history, appointments, medications, allergies reviewed. EXAM: BP 128/87 Pulse 96 Resp 16 Wt 121.7 kg (268 lb 4.8 oz) SpO2 99% BMI 37.42 kg/m General Appearance: Well appearing, alert, in no acute distress, well-hydrated, well nourished.. Lungs: Lungs clear to auscultation. No wheezing, rhonchi, rales.. Heart: RRR without murmur, gallop, or rubs. No ectopy. ASSESSMENT/PLAN: 1. Primary hypertension - ICD9: 401.9, ICD10: I10 (primary diagnosis) - Controlled - Continue current medications - Recommend home blood pressure monitoring, to bring results to next visit - Encouraged sodium restriction, DASH or Mediterranean diet - Recommend regular aerobic exercise - AMLODIPINE 5 MG TABLET - COMPREHENSIVE METABOLIC PANEL 2. ED (erectile dysfunction) of organic origin - ICD9: 607.84, ICD10: N52.9 - stable, continue cialsis - TADALAFIL 10 MG TABLET 3. Screening for depression - ICD9: V79.0, ICD10: Z13.31 - DEPRESSION SCREENING 4. Encounter for screening examination for other mental health and behavioral disorders - ICD9: V79.8, ICD10: Z13.39 - ANXIETY SCREENING 5. Screening for prostate cancer - ICD9: V76.44, ICD10: Z12.5 - PSA/PROSTATE SPECIFIC ANTIGEN SCREENING 6. Hyperlipidemia, unspecified hyperlipidemia type - ICD9: 272.4, ICD10: E78.5 - Control undetermined, due for labs - Counseled on healthy diet and regular exercise - LIPID PANEL BASIC 7. Elevated glucose - ICD9: 790.29, ICD10: R73.09 - recheck in 6 months - HEMOGLOBIN A1C Lui Richards APRN.CNP RTO in 6 months, sooner if needed. This note was partly generated using Pathflow voice recognition dictation and may contain some misspelled or inaccurate words missed on review. documented in this encounter [facility] 10-24-2023 Note HNO ID: [id number] Author: LUI RICHARDS APRN.CNP Service: ? Author Type: Nurse Practitioner Type: Progress Notes Filed: 10/24/2023 13:42 Note Text: Chief Complaint Patient presents with: Follow Up: 6 month HPI Micha Devlin is a 53 year old male who presents here today for Chronic Medical Conditions. Had blood work completed at the [facility] since works for the [employer]. We are waiting on the documents. HTN: Patient is compliant with meds Yes Monitors bp at home: infrequently. Denies side effects: Yes. Chest pain: No. Dyspnea: No. Edema: No. Palpitations: No. Syncope: No. Headache: No. Dizziness: No. ED: Using Cialsis with benefit. Needs refills. Past medical history, appointments, medications, allergies reviewed. EXAM: BP 128/87 Pulse 96 Resp 16 Wt 121.7 kg (268 lb 4.8 oz) SpO2 99% BMI 37.42 kg/m? General Appearance: Well appearing, alert, in no acute distress, well-hydrated, well nourished.. Lungs: Lungs clear to auscultation. No wheezing, rhonchi, rales.. Heart: RRR without murmur, gallop, or rubs. No ectopy. ASSESSMENT/PLAN: 1. Primary hypertension - ICD9: 401.9, ICD10: I10 (primary diagnosis) - Controlled - Continue current medications - Recommend home blood pressure monitoring, to bring results to next visit - Encouraged sodium restriction, DASH or Mediterranean diet - Recommend regular aerobic exercise - AMLODIPINE 5 MG TABLET - COMPREHENSIVE METABOLIC PANEL 2. ED (erectile dysfunction) of organic origin - ICD9: 607.84, ICD10: N52.9 - stable, continue cialsis - TADALAFIL 10 MG TABLET 3. Screening for depression - ICD9: V79.0, ICD10: Z13.31 - DEPRESSION SCREENING 4. Encounter for screening examination for other mental health and behavioral disorders - ICD9: V79.8, ICD10: Z13.39 - ANXIETY SCREENING 5. Screening for prostate cancer - ICD9: V76.44, ICD10: Z12.5 - PSA/PROSTATE SPECIFIC ANTIGEN SCREENING 6. Hyperlipidemia, unspecified hyperlipidemia type - ICD9: 272.4, ICD10: E78.5 - Control undetermined, due for labs - Counseled on healthy diet and regular exercise - LIPID PANEL BASIC 7. Elevated glucose - ICD9: 790.29, ICD10: R73.09 - recheck in 6 months - HEMOGLOBIN A1C Lui Richards APRN.[employer]IC TR[employer]IT TROLLEY DRIVER RTO in 6 months, sooner if needed. This note was partly generated using Pathflow voice recognition dictation and may contain some misspelled or inaccurate words missed on review. [facility] 07-25-2023 Telephone encounter Note The following approved medication requests have been transmitted electronically. Requested Prescriptions Pending Prescriptions Disp Refills Tadalafil (CIALIS) 10 mg tablet 4 tablet 5 Sig: Take 1 tablet by mouth as needed (30-60 minutes prior to intercourse). lisinopril-hydroCHLOROthiazide (ZESTORETIC) 10-12.5 mg per tablet 90 tablet 1 Sig: Take 1 tablet by mouth once daily. Lui Richards APRN.CNP [facility] 07-25-2023 Miscellaneous Notes The following approved medication requests have been transmitted electronically. Requested Prescriptions Pending Prescriptions Disp Refills Tadalafil (CIALIS) 10 mg tablet 4 tablet 5 Sig: Take 1 tablet by mouth as needed (30-60 minutes prior to intercourse). lisinopril-hydroCHLOROthiazide (ZESTORETIC) 10-12.5 mg per tablet 90 tablet 1 Sig: Take 1 tablet by mouth once daily. Lui Richards APRN.CNP Patient has been identified by name and date of : Yes, Provider Lukasz Vickers MD Date July 25, 2023 Time 10:35 AM Patient phones for refill(s): Requested Prescriptions Pending Prescriptions Disp Refills Tadalafil (CIALIS) 10 mg tablet 4 tablet 5 Sig: Take 1 tablet by mouth as needed (30-60 minutes prior to intercourse). lisinopril-hydroCHLOROthiazide (ZESTORETIC) 10-12.5 mg per tablet 90 tablet 1 Sig: Take 1 tablet by mouth once daily. Date of last office visit in primary care: 04/03/2023 Date of next office visit in primary care: 10/02/2023 Please advise. Thank you. Jenifer Chavez MA. documented in this encounter [facility] 07-25-2023 Telephone encounter Note Patient has been identified by name and date of : Yes, Provider Lukasz Vickers MD Date July 25, 2023 Time 10:35 AM Patient phones for refill(s): Requested Prescriptions Pending Prescriptions Disp Refills Tadalafil (CIALIS) 10 mg tablet 4 tablet 5 Sig: Take 1 tablet by mouth as needed (30-60 minutes prior to intercourse). lisinopril-hydroCHLOROthiazide (ZESTORETIC) 10-12.5 mg per tablet 90 tablet 1 Sig: Take 1 tablet by mouth once daily. Date of last office visit in primary care: 04/03/2023 Date of next office visit in primary care: 10/02/2023 Please advise. Thank you. Jenifer Chavez MA. [facility] 04-28-2023 Note HNO ID: [id number] Author: GINA KOROMA MD Service: ? Author Type: Physician Type: Progress Notes Filed: 05/01/2023 13:18 Note Text: Follow up removal of lipoma of upper left back by Dr. Cervantes done on 04/21/ FOLLOW UP VISIT NAME: Micha Gilmore [facility] NO.: [id number] DATE OF SERVICE: 04/28/2023 : 1970 REFERRING PHYSICIAN: Lukasz Vickers MD Micha is status post excision of back lipoma by Dr. Cervantes done on 04/21/2023. He denies any problems VITALS: Temperature 36.8 ?C (98.2 ?F). On examination, wound is healing well, without evidence of infection. Assessment IMPRESSION: s/p lipoma removal of back PLAN: Patient is to return to clinic if any worsening signs/symptoms. Patient will return to his PCP for medical care. Patient acknowledges above. Diagnoses: (Z98.890) Status post skin and subcutaneous tissue surgery (primary encounter diagnosis) I have confirmed and edited as necessary, the PFSH and ROS obtained by others. ____ Gina Koroma MD [facility] 04-28-2023 History of Presen t illness Narrative Follow up removal of lipoma of upper left back by Dr. Cervantes done on 04/21/ FOLLOW UP VISIT NAME: Micha Devlin [facility] NO.: [id number] DATE OF SERVICE: 04/28/2023 : 1970 REFERRING PHYSICIAN: Lukasz Vickers MD Micha is status post excision of back lipoma by Dr. Cervantes done on 04/21/2023. He denies any problems VITALS: Temperature 36.8 C (98.2 F). On examination, wound is healing well, without evidence of infection. Assessment IMPRESSION: s/p lipoma removal of back PLAN: Patient is to return to clinic if any worsening signs/symptoms. Patient will return to his PCP for medical care. Patient acknowledges above. Diagnoses: (Z98.890) Status post skin and subcutaneous tissue surgery (primary encounter diagnosis) I have confirmed and edited as necessary, the PFSH and ROS obtained by others. ____ Gina Koroma MD documented in this encounter [facility] 04-21-2023 Note HNO ID: [id number] Author: EDY YARBROUGH APRN.COUNTER PROFESSIONAL Service: ? Author Type: Food Technologist Type: Anesthesia Procedure Notes Filed: 04/21/2023 09:16 Note Text: ANESTHESIOLOGY PROCEDURE NOTE Airway General Information Procedure Start Time/Medication Administration: 04/21/2023 9:00 AM Patient location during procedure: OR Timeout Performed Pre-procedure: timeout performed Consent Obtained: Yes Patient identity confirmed: arm band and patient Staffing Anesthesiologist: Andi Virk MD CAA: Edy Yarbrough APRN.COUNTER PROFESSIONAL Performed by: anesthesiologist Indications and Patient Condition Indications for airway management: anesthesia Preoxygenated: yes anesthesia circuit Patient position: sniffing Method: asleep Cricoid Pressure: No Manual In-Line Stabilization: No Difficult Mask: No Final Airway Details Final airway type: supraglottic airway Number of attempts at approach: 1 Final Supraglottic Airway: i-gel Size 5 Seal Adequate: yes Failed airway: no Airway not difficult SIGNATURE: Edy Yarbrough APRN.COUNTER PROFESSIONAL PATIENT NAME: Micha Devlin DATE: April 21, 2023 TIME: 9:15 AM CSN: [id number] [facility] 04-03-2023 Telephone encounter Note 04/21/2023 EXC SUB Q LESION LEFT UPPER BACK MOSES [facility] 04-03-2023 Miscellaneous Notes 04/21/2023 EXC SUB Q LESION LEFT UPPER BACK MOSES documented in this encounter [facility] 04-03-2023 History of Presen t illness Narrative HISTORY AND PHYSICAL Micha Devlin 1970 REFERRING PHYSICIAN: CHIEF COMPLAINT: Consult (7 cm lump of left shoulder) HPI: The patient is a 52 year old male with a complaint of Subcutaneous mass of back (primary encounter diagnosis). Patient notes lump of left shoulder area x approximately 2 years, increasing in size since onset. Occasionally sore and more noticeable. He desires excision. Has not had imaging of site previously. PAST MEDICAL HISTORY Diagnosis Date Bone spur 2017 Erectile dysfunction of organic origin Essential hypertension Eustachian tube dysfunction, bilateral HTN (hypertension) Kidney stones 2011 Mass of soft tissue of shoulder 03/13/2023 left scapula Obesity Umbilical hernia 04/01/2015 PAST SURGICAL HISTORY Procedure Laterality Date ESOPHAGOGASTRODUODENOSCOPY TRANSORAL DIAGNOSTIC 09/09/2003 EGD HERNIA REPAIR W/MESH 04/01/15 NEPHROLITHOTOMY REMOVAL STAGE 1 Left 2011 EXTRACORPOREAL SHOCKWAVE LITHOTRIPSY UNILATERAL PAST SURGICAL HISTORY OF Left 04/2016 Labrum Tear and Bone spur removed. Dr. Olson at [facility] Current Outpatient Medications Medication Sig amLODIPine (NORVASC) 5 mg tablet Take 1 tablet by mouth once daily. lisinopril-hydroCHLOROthiazide (ZESTORETIC) 10-12.5 mg per tablet Take 1 tablet by mouth once daily. Tadalafil (CIALIS) 10 mg tablet Take 1 tablet by mouth as needed (30-60 minutes prior to intercourse). No current facility-administered medications for this visit. ALLERGIES: Vicodin [Hydrocodone-Acetaminophen] PERSONAL HISTORY: Social History Tobacco Use Smoking status: Never Smokeless tobacco: Never Vaping Use Vaping Use: Never used Substance Use Topics Alcohol use: Not Currently Drug use: Never FAMILY HISTORY: FAMILY HISTORY Problem Relation Age of Onset Hypertension Father Hypertension Paternal Uncle Hypertension Paternal Aunt Diabetes Father diet controlled. REVIEW OF SYMPTOMS: General: The patient denies fatigue, denies weight loss, denies weight gain, denies feeling hot, and denies feelings of cold. Eyes: The patient denies glaucoma, denies eye injury/surgery, wears glasses or contacts. Ear/Nose/Throat: The patient NOTES allergies, denies hayfever, denies ear infections, and denies bloody noses. Cardiovascular: The patient denies chest pain, denies heart disease, NOTES high blood pressure,denies cardiac stent, denies prior heart attack, denies irregular heart beat, denies high cholesterol, denies poor circulation, denies heart failure, other cardiac issues, denies claudication, denies cold feet, denies peripheral arterial stent. Respiratory: The patient denies tuberculosis, denies pneumonia, denies frequent cough, denies pulmonary embolism, denies shortness of breath, and denies coughing up blood. Gastrointestinal: The patient denies difficulty swallowing, denies acid reflux, denies ulcers, denies vomiting, denies jaundice/hepatitis, denies gallbladder problems, denies black or tarry stools, denies hemorrhoids, denies bleeding from rectum, denies diverticulitis, denies constipation, denies diarrhea, denies loss of stool control, and NOTES hernias. Kidney/Bladder: The patient NOTES kidney stones, denies urine infections, and denies bloody urine. Skin: The patient denies a history of skin cancer, denies bleeding/changing moles, and denies a history of skin rash. Neurologic: The patient denies a history of epilepsy/convulsions, denies headaches, denies head/spinal injuries, and denies stroke/TIA. Psychiatric: The patient denies psychiatric medications, denies depression, and denies voices, denies substance abuse. Endocrine: The patient denies thyroid disorders, denies diabetes, and denies hormonal problems. Hematologic: The patient denies a history of bruising, denies bleeding, and denies anemia, denies blood clots. Infections: The patient denies a history of measles and mumps, denies rheumatic fever, and denies sexually transmitted diseases. Musculoskeletal: The patient denies back pain/injury, denies back problems, denies sciatica, denies knee/foot trouble, denies arthritis, or denies gout. When was patient's last Mammogram screening? N/A Last Colonoscopy: 10/2021 PHYSICAL EXAMINATION: General: The patient is 52 year old male, well nourished, well hydrated in no acute distress. The patient is oriented to time, place, and person. VITALS: Blood pressure 132/88, pulse 84, temperature 36.7 C (98 F), height 180.3 cm (5' 11), weight 124.8 kg (275 lb 3.2 oz), SpO2 98%. HEENT: Normal cephalic, ataumatic, pupils are equally round, sclera are anicteric, mucous membranes are moist, oropharynx is clear. Neck has no masses, asymmetry or lymphadenopathy. Thyroid is unremarkable. Respiratory: Clear to auscultation and percussion. Normal respiratory excursion and pattern. Cardiac: Examination is regular rate and rhythm. Abdominal exam: Soft, nontender, with no palpable masses. No hepatosplenomegaly. No palpable hernias. Rectal exam: exam deferred Extremities: no clubbing, cyanosis or edema. No adenopathy. Other: +soft mobile 7 cm mass left upper back/scapula area, non-tender LABORATORY VALUES: As Noted RADIOLOGIC STUDIES: As Noted Assessment IMPRESSION: Subcutaneous mass of back (primary encounter diagnosis) PLAN: My plan is to excise this in the operating room. The planned surgical procedure was discussed extensively with the patient. The risks, benefits, anticipated outcomes and possible complications were mentioned. My staff has also explained the procedure in understandable terms and the patient was given the option to take printed material concerning the planned procedure. The patient had the opportunity to ask questions concerning the planned procedure. The patient freely consents to the planned procedure. Diagnoses: (R22.2) Subcutaneous mass of back (primary encounter diagnosis) My findings have been communicated to Dr. Lukasz Vickers MD via shared medical record. This note will be forwarded to Dr. Lukasz Vickers MD. Return to Clinic: The patient is instructed to follow-up with me 1 week post operatively. Edy Cervantes III, MD documented in this encounter [facility] 04-03-2023 Instructions Lui Richards APRN.CNP - 04/03/2023 7:11 AM EST Continue lisinopril/hctz. Start amlodipine Repeat labs in 6 months Start low cholesterol/low carb diet Goal is to be 265 lb in 6 months Let me know if your BP is less than 100 (top number) or 60 (bottom number) See us back in 6 months. Lui Richards APRN.DANITA documented in this encounter [facility] 04-03-2023 History of Presen t illness Narrative Chief Complaint Patient presents with: Follow Up ER F/U HPI Micha Devlin is a 52 year old male who presents here today for Chronic Medical Conditions. and ER Follow Up. follow up for HTN. Patient is here with . Patient is here for 1 month follow-up for blood pressure elevation. History of hypertension. At her last visit we increased his lisinopril/hydrochlorothiazide. After few days taking this medication, patient was complaining of high heart rate, fatigue, weakness. Went to the emergency room. Had EKG, chest x-ray which were unremarkable. Had CTA of the chest which was also unremarkable. We went back to original lisinopril/hydrochlorothiazide dose. Added amlodipine 5 mg. Patient has yet to take this medication. Did not pick it up. Blood pressure is borderline elevated today. Had elevated alkaline phosphate and AST with last blood work. Glucose was mildly elevated at 116. Hemoglobin A1c was 5.5%. He is already started to cut out sugary tea and beverages. Looking to start low carbohydrate diet. Cholesterol is elevated. LDL 183, HDL 41, total cholesterol 249. Family history of heart disease. 10-year risk today is 9.5%. Lifetime risk is 69%. Discussed recommendation to start statin medication today. Patient declined. Would like to try lifestyle changes. Agreeable to recheck in 6 months. Past medical history, appointments, medications, allergies reviewed. EXAM: BP 130/90 Pulse 84 Resp 18 General Appearance: Well appearing, alert, in no acute distress, well-hydrated, well nourished.. Lungs: Lungs clear to auscultation. No wheezing, rhonchi, rales.. Heart: RRR without murmur, gallop, or rubs. No ectopy. ASSESSMENT/PLAN: 1. Primary hypertension - ICD9: 401.9, ICD10: I10 (primary diagnosis) - Improving control, discussed reaching out to me if systolic less than 100 or diastolic less than 60. - Continue current medications - Recommend home blood pressure monitoring, to bring results to next visit - Encouraged sodium restriction, DASH or Mediterranean diet - Recommend regular aerobic exercise - COMP METABOLIC PANEL - AMLODIPINE 5 MG TABLET 2. Lipoma of back - ICD9: 214.8, ICD10: D17.1 -Continue to follow with general surgery 3. Hyperlipidemia, unspecified hyperlipidemia type - ICD9: 272.4, ICD10: E78.5 - Uncontrolled - Counseled on healthy diet and regular exercise - Discussed need for and benefit of weight loss. No weight on file for this encounter. - LIPID PANEL BASIC - COMP METABOLIC PANEL 4. Elevated LFTs - ICD9: 790.6, ICD10: R79.89 -Mildly elevated. Recheck in 6 months. - COMP METABOLIC PANEL 5. Elevated glucose - ICD9: 790.29, ICD10: R73.09 -Discussed exercise, reduction of carbohydrate intake - HGB A1C 6. Class 2 obesity with body mass index (BMI) of 38.0 to 38.9 in adult, unspecified obesity type, unspecified whether serious comorbidity present - ICD9: 278.00, V85.38, ICD10: E66.9, Z68.38 Stable - Behavioral intervention Lui Richards APRN.CNP RTO in 6 months, sooner if needed. This note was partly generated using Pathflow voice recognition dictation and may contain some misspelled or inaccurate words missed on review. documented in this encounter [facility] 03-30-2023 Miscellaneous Notes My Chart message sent to patient. Brisa Burnette RN ----- Message from Frida Conner PA-C sent at 03/30/2023 11:35 AM EST ----- Keep upcoming f/u appointment with Dr. Cervantes to discuss excision in OR documented in this encounter [facility] 03-24-2023 History of Presen t illness Narrative Radiology Service Progress Note PATIENT NAME: Micha Devlin DATE OF SERVICE: March 24, 2023 TIME: 10:40 AM PATIENT IDENTITY VERIFICATION COMPLETED USING TWO (2) IDENTIFIERS: Name and Date of confirmed by patient verbally. FALL SCREENING: Has the patient had 2 falls in the last year or 1 fall with injury or currently using an Ambulatory Assistive Device (Walker, Cane, Wheelchair, Crutches, etc.)? No PATIENT GENDER DATA: Male PATIENT RELEVANT IMPLANT DATA REVIEWED: Not Applicable PATIENT PRESENTS WITH AN IMPLANTABLE OR ATTACHED PLEXIGLAS FORMER: No RADIOLOGY DEPARTMENT: Ultrasound PERIPHERAL IV DATA: Not applicable SIGNED BY: Malena Carrillo RDMS March 24, 2023 10:40 AM documented in this encounter [facility] 03-06-2023 Discharge summary Note Date/Time March 06, 2023 8:45pm [facility] Medical Records Department [address] [place] [id number] Emergency Department Summary 03/06/23 MR#: [id number] Acct: [id number] Name: MICHA DEVLIN Rep #:[id number] : [id number] 52 From: Abdias Bartholomew DO PCP: Dr. Lukasz Vickers MD Status:RE G ER Location: ED HPI <JULIAN Barnhart - Last Filed: 03/06/23 21:15> History of Present Illness Chief Complaint: Chest Pain Narrative Narrative: Patient is a 52-year-old male with history of hypertension who presents to the emergency department for feeling of body aches, chest pressure that started around 5 PM today. Patient denies any chest pain or shortness of breath. Patient dates he felt palpitations. He states he does have a dry cough however no production. He denies any nausea or vomiting. [facility] <JULIAN Barnhart - Last Filed: 03/06/23 21:15> [facility] Medical History (Updated 03/06/23 @ 19:31 by Maxim Mayberry) HTN (hypertension) Home Medications lisinopril 20 mg-hydrochlorothiazide 25 mg tablet tab 03/06/23 [History Last Taken 03/06/23] Allergy/AdvReac Type Severity Reaction Status Date / Time No Known Allergies Allergy Verified 03/06/23 19:05 Social History Smoking Status: Never smoker ROS <JULIAN Barnhart - Last Filed: 03/06/23 21:15> ROS ED ROS Narrative Constitutional: Negative for fever,, weight loss, weakness. Positive for chills Eyes: Negative for vision loss, vision change, double vision ENT: Negative for any sore throat, ear pain, congestion Cardiovascular: Negative for any chest pain, tightness, palpitations Respiratory: Negative for any sputum production, hemoptysis, dyspnea, dyspnea on exertion, orthopnea. Positive for cough Gastrointestinal: Negative for any abdominal pain, nausea, vomiting, diarrhea, constipation, blood in stool, blood in vomit : Negative for any urinary frequency, dysuria, retention, blood in urine Muscle skeletal: Negative for any arthralgias, neck pain, back pain. Positive for myalgias Neurological: Negative for any headache, syncope, paresthesias, dizziness Skin: Negative for any rashes, lumps, itching, abrasions, lacerations Psychiatric: Negative for any depression, anxiety, stress, suicidal ideation, homicidal ideation Hematologic: Negative for any easy bruising, excessive bruising, easy bleeding Allergies: Negative for any eczema, hives, rash EXAM <JULIAN Barnhart - Last Filed: 03/06/23 21:15> Physical Exam Narrative Exam Narrative: Vital signs reviewed. Is alert and orient x 4. Patient did look slightly flushed, temperature showed an oral temp of 101.8. HEET: Head normocephalic atraumatic, TMs clear bilaterally. Posterior pharynx is clear, dry mucous membranes. Nares clear bilaterally. Neck: Supple with no lymphadenopathy or tenderness. No signs of meningismus. Cardiac: Tachycardic rate no murmurs gallops or rubs, equal peripheral pulses bilaterally. Respiratory: Lungs clear to auscultation bilaterally. No chest tenderness. Abdomen: Soft, nontender, nondistended. No abdominal bruit or pulsatile masses. No hepatosplenomegaly Extremities: No peripheral edema, no signs of gross trauma or deformity. Activefull range of motion of all extremities. Neuro: Cranial nerves II through XII intact, no focal neurological deficits. Skin: Clean dry and intact with no rash, purpura, petechiae, vesicles or pustules. Backs/flank: No CVA tenderness, no midline spinal tenderness, no deformity. Psych: Normal mood and affect. No SI, HI or acute psychosis. Const Vital Signs: 03/06/23 19:05 03/06/23 19:31 03/06/23 20:05 Temperature 97.6 F L 101.2 F H Temperature Source Temporal Oral Pulse Rate 147 H Respiratory Rate 18 Blood Pressure 157/113 H Blood Pressure Mean 127 Pulse Ox 97 Oxygen Delivery Method Room Air Room Air <Dr. Abdias Bartholomew DO - Last Filed: 03/06/23 22:47> Physical Exam Const Vital Signs: 03/06/23 19:05 03/06/23 19:31 03/06/23 20:05 Temperature 97.6 F L 101.2 F H Temperature Source Temporal Oral Pulse Rate 147 H Respiratory Rate 18 Blood Pressure 157/113 H Blood Pressure Mean 127 Pulse Ox 97 Oxygen Delivery Method Room Air Room Air [facility] <JULIAN Barnhart - Last Filed: 03/06/23 21:15> [facility] Lab Data Labs: Laboratory Results - last 24 hr 03/06/23 03/06/23 19:18 21:37 WBC 7.4 RBC 6.41 H Hgb 18.6 H* Hct 55.8 H MCV 87.1 MCH 29.0 MCHC 33.3 RDW Std Deviation 41.1 RDW Coeff of Danilo 13.0 Plt Count 325 MPV 8.7 Immature Gran % (Auto) 0.100 Neut % (Auto) 67.1 Lymph % (Auto) 18.5 L Lea % (Auto) 12.2 H Eos % (Auto) 1.0 Baso % (Auto) 1.1 H Absolute Neuts (auto) 4.9 Absolute Lymphs (auto) 1.36 Nucleated RBC % 0 Diff Path Review May foll Platelet Estimate ADEQUATE RBC Morphology N CHROM Anisocytosis RARE Macrocytosis RARE D-Dimer Quant (PE/DVT) 0.58 H* Sodium 135 L Potassium 3.9 Chloride 100 Carbon Dioxide 31.0 Anion Gap 4 L BUN 17 Creatinine 1.30 Estim Creat Clear Calc 69.19 Est GFR (MDRD) Af Amer 74 Est GFR (MDRD) Non-Af 61 BUN/Creatinine Ratio 13.1 Glucose 121 H Calcium 10.2 H Troponin I High Sens 4 5 Radiography Diagnostic Testing: Clinical Impression(s) from Imaging Studies Chest X-Ray 03/06/23 19:20 IMPRESSION: No acute cardiopulmonary disease, stable study in the interval. Electronically Signed: Hanna Guerrero MD at 19:36 EST Reading Location ID and State: [id number] / [place] , Service support , Chest CTA 03/06/23 21:12 IMPRESSION: Negative CTA chest examination, without a demonstrated pulmonary embolism or arterial dissection. Measured minimal multilobar and predominantly mid lower lung atelectasis, otherwise no focal infiltrate or pleural effusion seen. No pneumothorax. Electronically Signed: Hanna Guerrero MD at 22:26 EST Reading Location ID and State: [id number] / [place] , Service support , EKG Sinus tachycardia: Attestation: I personally reviewed and interpreted this EKG as follows: Comments: Sinus tachycardia, rate 136 bpm, MN interval 150 ms, QRS duration 86 ms, no acute ST elevation, no acute infarct Treatment and Re-Evaluation :: Patient appears to be no obvious respiratory distress, vital signs are stable other than tachycardia. Patient is febrile here. Differential diagnosis includes ACS, TX, pneumonia, viral syndrome such as influenza, COVID-19. Patient received a cardiac workup, patient's CBC showed hemoconcentration with hemoglobin 18.6, red blood cells of 6.41, D-dimer was elevated 0.58, chemistry showed normal electrolytes, troponin was negative for, repeat will be drawn. Patient will receive a CT scan of the chest to rule out any pulmonary embolus. Chest x-ray two-view was unremarkable. Patient was given IV fluids, Toradol, Tylenol. Patient be reevaluated. All radiologic examinations were read, reviewed by the emergency department attending. From these reads, a plan of care will be put in place. <Dr. Abdias Bartholomew, DO - Last Filed: 03/06/23 22:47> [facility] Narrative Medical decision making narrative: Patient appears to be no obvious respiratory distress, vital signs are stable other than tachycardia. Patient is febrile here. Differential diagnosis includes ACS, TX, pneumonia, viral syndrome such as influenza, COVID-19. Patient received a cardiac workup, patient's CBC showed hemoconcentration with hemoglobin 18.6, red blood cells of 6.41, D-dimer was elevated 0.58, chemistry showed normal electrolytes, troponin was negative for, repeat will be drawn. Patient will receive a CT scan of the chest to rule out any pulmonary embolus. Chest x-ray two-view was unremarkable. Patient was given IV fluids, Toradol, Tylenol. Patient be reevaluated. All radiologic examinations were read, reviewed by the emergency department attending. From these reads, a plan of care will be put in place. This patient was seen with a PA/ELECTRIC ORGAN INSPECTOR AND REPAIRER Individually assessed they patient including history and physical. I have reviewed everything on the chart that is availableand agree with the documentation provided by the PA/ELECTRIC ORGAN INSPECTOR AND REPAIRER including discussion about the assessment, treatment plan, discussion, and return precautions. Patient presenting with chest pain as well as viral symptoms. His workup is ultimately normal with a white blood count 7.4. Hemoglobin is slightly constipated 8.6. Platelets are normal at 325. EKG showed a sinus tachycardia at a rate of 136 bpm however the patient was found to be febrile. He was given IV fluids, Tylenol, Toradol. COVID, influenza, RSV were negative. D-dimer was elevated so CTA was performed was also negative. Delta troponin is 5. Given this his workup is ultimately negative. I suspect he likely has something viralsince he has a fever. Reevaluation at 10:45 PM we went over all of his test results. His CTA was negative. His fevers improved. Patient feels very good he is laughing and smiling in the room. He states his symptoms are all gone. He states this was the first time he had a fever tonight. He also states that he is hungry and is can stop at [place] on the way home. I asked him if anything for nausea and he states that he has not. I recommended treatment withTylenol and ibuprofen at home for fevers and pain. Offered viral respiratory panel but the patient declined. He stable for discharge at this point Impression: 1. Chest pain 2. Viral syndrome 3. Tachycardia resolved 4. Febrile illness Lab Data Attestation: I reviewed the patient's lab results. Labs: Laboratory Results - last 24 hr 03/06/23 03/06/23 19:18 21:37 WBC 7.4 RBC 6.41 H Hgb 18.6 H* Hct 55.8 H MCV 87.1 MCH 29.0 MCHC 33.3 RDW Std Deviation 41.1 RDW Coeff of Danilo 13.0 Plt Count 325 MPV 8.7 Immature Gran % (Auto) 0.100 Neut % (Auto) 67.1 Lymph % (Auto) 18.5 L Lea % (Auto) 12.2 H Eos % (Auto) 1.0 Baso % (Auto) 1.1 H Absolute Neuts (auto) 4.9 Absolute Lymphs (auto) 1.36 Nucleated RBC % 0 Diff Path Review May foll Platelet Estimate ADEQUATE RBC Morphology N CHROM Anisocytosis RARE Macrocytosis RARE D-Dimer Quant (PE/DVT) 0.58 H* Sodium 135 L Potassium 3.9 Chloride 100 Carbon Dioxide 31.0 Anion Gap 4 L BUN 17 Creatinine 1.30 Estim Creat Clear Calc 69.19 Est GFR (MDRD) Af Amer 74 Est GFR (MDRD) Non-Af 61 BUN/Creatinine Ratio 13.1 Glucose 121 H Calcium 10.2 H Troponin I High Sens 4 5 Radiography Diagnostic Testing: Clinical Impression(s) from Imaging Studies Chest X-Ray 03/06/23 19:20 IMPRESSION: No acute cardiopulmonary disease, stable study in the interval. Electronically Signed: Hanna Guerrero MD at 19:36 EST , Chest CTA 03/06/23 21:12 IMPRESSION: Negative CTA chest examination, without a demonstrated pulmonary embolism or arterial dissection. Measured minimal multilobar and predominantly mid lower lung atelectasis, otherwise no focal infiltrate or pleural effusion seen. No pneumothorax. Electronically Signed: Hanna Guerrero MD at 22:26 EST , Discharge Plan Triage Chief Complaint: Chest Pain ED Midlevel Provider: Dionte Arndt ED Provider: Abdias Bartholomew Dx/Rx/DC Orders Prescriptions: No Action lisinopril-hydrochlorothiazide 20-25 mg tablet Patient Comments: TAKE 1 TABLET BY MOUTH EVERY DAY IN THE MORNING Primary Care Provider: Lukasz Vickers Referrals: Lukasz Vickers MD [Primary Care Provider] - What to do if you have Problems For any increased pain, shortness of breath, bleeding, nausea or vomiting, chestpain, or any unexpected problems, contact your Primary Care Provider. Call [facility] ([phone]) or report to the closest Emergency Room. Call 911 if necessary. 03/06/232246 <Electronically signed by Abdias Bartholomew DO> Cosigner Signature (if applicable): 03/06/232114 <Electronically signed by Dionte Arndt ELECTRIC ORGAN INSPECTOR AND REPAIRER-C> CC: Dr. Lukasz Vickers MD ~ Signed [facility] Work Phone: [phone]) 883-524209-25-2023 Miscellaneous Notes* Telephone Encounter - Lui Richards APRN.CNP - 11/21/2022 6:53 AM EDT The following approved medication requests have been transmitted electronically. Requested Prescriptions Pending Prescriptions Disp Refills lisinopril-hydroCHLOROthiazide (ZESTORETIC) 10-12.5 mg per tablet 90 tablet 1 Sig: Take 1 tablet by mouth once daily. Tadalafil (CIALIS) 10 mg tablet 4 tablet 5 Sig: Take 1 tablet by mouth as needed (30-60 minutes prior to intercourse). Lui Richards APRN.CNP * Telephone Encounter - Greg Bentley LPN - 11/19/2022 10:45 AM EDT Patient phones requesting refills as follows: Requested [...] advise. Greg Bentley LPN [facility] History of Present illness Narrative* Evan Echavarria PA-C - 06/07/2022 8:12 AM EDT Images from the original note were not included. [facility] [place] [facility] NEW CONSULT PATIENT CLINIC NOTE SERVICE DATE: 06/07/2022 SERVICE TIME: 8:13 AM NAME: Micha Devlin Consultation requested by Lukasz Vickers MD for an opinion regarding Impotence My final recommendations communicated back to the requesting physician by way of our shared Medicalrecord. CHIEF COMPLAINT: Impotence HISTORY OF PRESENT ILLNESS: Micha Devlin is a 51 year old male [...] and Bone spur removed. Dr. Olson at [facility] FAMILY HISTORY: FAMILY HISTORY Problem Relation Age [...] medically appropriate examination, counseling and educating the pat ient/family/caregiver, ordering medications, tests, or procedures, and care coordination. POWER Dwyer, [place], JEFFREY documented in this encounter[facility]2023 Miscellaneous Notes* Telephone Encounter - Isabel Johnson LPN - 05/31/2022 11:23 AM EDT Called patient. Verified name and date of . Rescheduled appointment from today to earlier appoint in the day on June 07, 2022. Patient left without being seen due to provider with previous patients. Isabel Johnson LPN documented in this encounter[facility]23 History of Present illness Narrative* Evan Echavarria PA-C - 05/31/2022 10:22 AM EDT Patient left clinic without notifying anyone, we will try and contact him, to see if he needs to reschedule POWER Dwyer, DON, JEFFREY documented in this encounter[facility] History of Present illness Narrative* Lui Richards APRN.PUBLIC TRANSIT TROLLEY DRIVER - 05/23/2022 11:00 AM EDT Chief Complaint Patient presents with: Follow Up For: ED HPI Micha Devlin is a 51 year old male [...] 20 MG TABLET - CONSULT TO ENT Lui Richards APRN.PUBLIC TRANSIT TROLLEY DRIVER This note was partly generated using Pathflow voice recognition dictation and may contain some misspelled or inaccurate words missed on review. documented in this encounter[facility]23 History of Present illness Narrative* Fco Toney APRN.DANITA - 05/15/2022 8:43 AM EDT Subjective HPI Nontoxic-appearing male presents urgent care [...] been evaluated by ENT at this point. Deniesany history of sinus trauma or surgeries. Denies any fever body aches chills productive cough chestpain shortness of breath pleuritic pain hemoptysis nausea [...] and Bone spur removed. Dr. Olson at [facility] ALLERGIES Vicodin [Hydrocodone-Acetaminophen] MEDICATIONS lisinopril-hydroCHLOROthiazide (PRINZIDE,ZESTORETIC) 10-12.5 [...] Sinus: Maxillary sinus tenderness present. Mouth/Throat: Lips: [place]. Mouth: Mucous membranes are moist. Pharynx: Oropharynx [...] for any new, worsening, or symptoms lasting longerthan anticipated. The patient's clinical presentation is otherwise unremarkable at this time. Basedon exam and clinical finding, the patient is stable for discharge. Plan of care was discussed with patient. Patient verbalizes understanding and agrees to plan of care. This note was generated using Pathflow software. It may contain errors in wording, punctuation, or spelling. Fco Toney APRN.DANITA documented in this encounter[facility]20[facility]23 History of Present illness Narrative* Moustapha Henry APRN.DANITA - 03/18/2022 11:20 AM EST Subjective HPI HPI Micha Devlin is a 51 year old male [...] and Bone spur removed. Dr. Olson at [facility] ALLERGIES Vicodin [Hydrocodone-Acetaminophen] MEDICATIONS lisinopril-hydroCHLOROthiazide (PRINZIDE,ZESTORETIC) 10-12.5 [...] DOXYCYCLINE MONOHYDRATE 100 MG TABLET Moustapha Henry APRN.CNP documented in this encounterSelect [facility]-04-2022 Miscellaneous Notes* Telephone Encounter - Lui Richards APRN.CNP - 12/31/2021 9:19 AM EDT The following approved medication requests have been transmitted electronically. Requested Prescriptions Pending Prescriptions Disp Refills lisinopril-hydroCHLOROthiazide (PRINZIDE,ZESTORETIC) 10-12.5 mg per tablet 90 tablet 1 Sig: Take 1 tablet by mouth once daily. Lui Richards APRN.CNP * Telephone Encounter - Sherry Goel LPN - 12/31/2021 9:00 AM EDT Patient phones requesting refills as follows: Requested Prescriptions Pending Prescriptions Disp Refills lisinopril-hydroCHLOROthiazide (PRINZIDE,ZESTORETIC) 10-12.5 mg per tablet 90 tablet 3 Sig: Take 1 tablet by mouth once daily. NIDIA-11/26/21 Labs-11/26/21 NOV-none med filled 10/15/20 Please review and advise. Sherry Goel LPN documented in this encounterSelect [facility]09-30-2022 History of Present illness Narrative* Lui Richards APRN.CNP - 11/26/2021 12:20 PM EDT Chief Complaint Patient presents with: Follow Up HPI Micha Devlin is a 51 year old male [...] and Bone spur removed. Dr. Olson at [facility] Family History FAMILY HISTORY Problem Relation Age [...] He will schedule with orthopedics at the [facility] 2. Cervical radiculopathy - ICD9: 723.4, ICD10: M54.12 3. ED (erectile dysfunction) of organic origin - ICD9: 607.84, ICD10: N52.9 - Increase Viagra to 100 mg - SILDENAFIL 100 MG TABLET 4. Encounter for immunization - ICD9: V03.89, ICD10: Z23 - ZOSTER VACC RECOMBINANT,IM Lui Richards APRN.CNP RTO in 6 months, sooner if needed. This note was partly generated using Pathflow voice recognition dictation and may contain some misspelled or inaccurate words missed on review. documented in this encounterSelect [facility]09-30-2022 Instructions* Patient Instructions* Lui Richards APRN.CNP - 11/26/2021 12:13 PM EDT Increase Viagra to 100 mg Continue with plan to see [facility] Shingles vaccine done today, good for life. 4. Follow up in 6 months. Lui Richards APRN.CNP documented in this encounterSelect [facility]07-29-2022 History of Present illness Narrative* Cuca Batista RT(R) - 09/24/2021 1:00 PM EDT Radiology Service Progress Note PATIENT NAME: Micha Devlin DATE OF SERVICE: September 24, 2021 TIME: 12:54 PM PATIENT IDENTITY VERIFICATION COMPLETED USING TWO (2) IDENTIFIERS: Name and Date of confirmedby patient verbally. FALL SCREENING: Has the patient had 2 falls in the last year or 1 fall with injury or currently using an Ambulatory Assistive Device (Walker, Cane, Wheelchair, Crutches, etc.)? No PATIENT GENDER DATA: Male PATIENT RELEVANT IMPLANT DATA REVIEWED: Not Applicable RADIOLOGY DEPARTMENT: General X-ray: Exam(s) Completed: Spine X-Ray(s): Cervical AP / LAT / OBL Pelvis X-Ray: Pelvis with Hip Bilateral PERIPHERAL IV DATA: Not applicable SIGNED BY: RT Dimas(R) September 24, 2021 12:54 PM documented in this encounterSelect [facility]07-29-2022 Instructions* Patient Instructions* Lui Richards APRN.CNP - 09/24/2021 12:44 PM EDT 1. Get xray 2. 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 Got Shingles today, next one in 2-6 months 4. Start Meloxicam with food daily 5. Start Viagra 50 mg, 30-60 minutes prior to intercourse. 6. Follow up in 6 weeks Lui Richards APRN.CNP documented in this encounterSelect [facility]07-29-2022 History of Present illness Narrative* Lui Richards APRN.CNP - 09/24/2021 12:20 PM EDT Chief Complaint Patient presents with: Physical HPI Micha Devlin is a 51 year old male who presents here today for physical exam. Here with significant other. Here for physical exam. Had blood work last year but had it down else. Glucose was 101 and alk phoswas 145. Cholesterol was good. Does not wish [...] an erection. Sometimes with obtaining. He has neverhad problems prior. No urinary symptoms. Past medical history, appointments, medications, allergies reviewed. Previous Medical History PAST MEDICAL HISTORY Diagnosis Date HTN (hypertension) Obesity Umbilical hernia 04/01/2015 Previous Surgical History PAST SURGICAL HISTORY Procedure Laterality Date EGD W/O OR W/BRUSH/WASH 09/09/2003 EGD HERNIA REPAIR W/MESH 04/01/15 PAST SURGICAL HISTORY OF Left 04/2016 Labrum Tear and Bone spur removed. Dr. Olson at [facility] REMOVAL OF KIDNEY STONE Left 2011 EXTRACORPOREAL [...] Tympanic) Resp 16 Ht 180.3 cm (5' 11) Wt 119.3 kg (263 lb) BMI 36.68 kg/m General Appearance: Well appearing, alert, in no acute distress, well-hydrated, well nourished. andObese. Neck: Supple, no adenopathy; thyroid symmetric, normal [...] start viagra. Discussed that ED can be multi-factoral. - TESTOSTERONE, FREE AND TOTAL - URINALYSIS, WITH MICROSCOPIC - SILDENAFIL 50 MG TABLET Lui Richards APRN.CNP RTO in 4-6 weeks, sooner if needed. This note was partly generated using Pathflow voice recognition dictation and may contain some misspelled or inaccurate words missed on review. documented in this encounterSelect [facility]-2012 History of Past illness Narrative* Problem Noted Date Resolved Date Hematuria 03/31/2011 01/03/2017 Generalized abdominal pain 03/31/201101/03 Right inguinal hernia 03/31/2011 01/03/2017 Dehydration 03/31/2011 01/03/2017 documented as of this encounter (statuses as of 09/24/2021) [facility] History of Past illness Narrative* Problem Noted Date Resolved Date Hematuria 03/31/2011 01/03/2017 Generalized abdominal pain 03/31/201101/03 Right inguinal hernia 03/31/2011 01/03/2017 Dehydration 03/31/2011 01/03/2017 documented as of this encounter (statuses as of 11/26/2021) [facility] History of Past illness Narrative* Problem Noted Date Resolved Date Hematuria 03/31/2011 01/03/2017 Generalized abdominal pain 03/31/201101/03 Right inguinal hernia 03/31/2011 01/03/2017 Dehydration 03/31/2011 01/03/2017 documented as of this encounter (statuses as of 12/31/2021) [facility] History of Past illness Narrative* Problem Noted Date Resolved Date Hematuria 03/31/2011 01/03/2017 Generalized abdominal pain 03/31/201101/03 Right inguinal hernia 03/31/2011 01/03/2017 Dehydration 03/31/2011 01/03/2017 documented as of this encounter (statuses as of 03/18/2022) [facility] History of Past illness Narrative* Problem Noted Date Resolved Date Hematuria 03/31/2011 01/03/2017 Generalized abdominal pain 03/31/201101/03 Right inguinal hernia 03/31/2011 01/03/2017 Dehydration 03/31/2011 01/03/2017 documented as of this encounter (statuses as of 04/15/2022) [facility] History of Past illness Narrative* Problem Noted Date Resolved Date Hematuria 03/31/2011 01/03/2017 Generalized abdominal pain 03/31/201101/03 Right inguinal hernia 03/31/2011 01/03/2017 Dehydration 03/31/2011 01/03/2017 documented as of this encounter (statuses as of 05/15/2022) [facility] History of Past illness Narrative* Problem Noted Date Resolved Date Hematuria 03/31/2011 01/03/2017 Generalized abdominal pain 03/31/201101/03 Right inguinal hernia 03/31/2011 01/03/2017 Dehydration 03/31/2011 01/03/2017 documented as of this encounter (statuses as of 05/23/2022) [facility] History of Past illness Narrative* Problem Noted Date Resolved Date Hematuria 03/31/2011 01/03/2017 Generalized abdominal pain 03/31/201101/03 Right inguinal hernia 03/31/2011 01/03/2017 Dehydration 03/31/2011 01/03/2017 documented as of this encounter (statuses as of 05/31/2022) [facility] History of Past illness Narrative* Problem Noted Date Resolved Date Hematuria 03/31/2011 01/03/2017 Generalized abdominal pain 03/31/201101/03 Right inguinal hernia 03/31/2011 01/03/2017 Dehydration 03/31/2011 01/03/2017 documented as of this encounter (statuses as of 06/08/2022) [facility] History of Past illness Narrative* Problem Noted Date Resolved Date Hematuria 03/31/2011 01/03/2017 Generalized abdominal pain 03/31/201101/03 Right inguinal hernia 03/31/2011 01/03/2017 Dehydration 03/31/2011 01/03/2017 documented as of this encounter (statuses as of 06/09/2022) [facility] History of Past illness Narrative* Problem Noted Date Diagnosed Date Resolved Date Hematuria 03/31/2011 01/03/2017 Generalized abdominal pain 03/31/2011 1 03/05/2016 Right inguinal hernia 03/31/20112016 Dehydration 03/31/2011 01/03/2017 documented as of this encounter (statuses as of 11/21/2022) [facility] History of Past illness Narrative* Problem Noted Date Diagnosed Date Resolved Date Hematuria 03/31/2011 01/03/2017 Generalized abdominal pain 03/31/2011 1 03/05/2016 Right inguinal hernia 03/31/20112016 Dehydration 03/31/2011 01/03/2017 documented as of this encounter (statuses as of 03/25/2023) [facility] History of Past illness Narrative* Problem Noted Date Diagnosed Date Resolved Date Hematuria 03/31/2011 01/03/2017 Generalized abdominal pain 03/31/2011 1 03/05/2016 Right inguinal hernia 03/31/20112016 Dehydration 03/31/2011 01/03/2017 documented as of this encounter (statuses as of 03/30/2023) [facility] History of Past illness Narrative* Problem Noted Date Diagnosed Date Resolved Date Hematuria 03/31/2011 01/03/2017 Generalized abdominal pain 03/31/2011 1 03/05/2016 Right inguinal hernia 03/31/20112016 Dehydration 03/31/2011 01/03/2017 documented as of this encounter (statuses as of 04/03/2023) [facility] History of Past illness Narrative* Problem Noted Date Diagnosed Date Resolved Date Hematuria 03/31/2011 01/03/2017 Generalized abdominal pain 03/31/2011 1 03/05/2016 Right inguinal hernia 03/31/20112016 Dehydration 03/31/2011 01/03/2017 documented as of this encounter (statuses as of 04/04/2023) [facility] History of Past illness Narrative* Problem Noted Date Diagnosed Date Resolved Date Hematuria 03/31/2011 01/03/2017 Generalized abdominal pain 03/31/2011 1 03/05/2016 Right inguinal hernia 03/31/20112016 Dehydration 03/31/2011 01/03/2017 documented as of this encounter (statuses as of 05/01/2023) [facility] History of Past illness Narrative* Problem Noted Date Diagnosed Date Resolved Date Hematuria 03/31/2011 01/03/2017 Generalized abdominal pain 03/31/2011 1 03/05/2016 Right inguinal hernia 03/31/20112016 Dehydration 03/31/2011 01/03/2017 documented as of this encounter (statuses as of 05/29/2023) [facility] Diagnosis Primary hypertension- Primary Unspecified essential [...] of organic origin [facility] Diagnosis Bilateral hip pain- Primary Pain in joint, pelvic region and thigh Cervical radiculopathy Brachial neuritis or radiculitis nos ED (erectile dysfunction) of organic origin Impotence of organic origin Encounter for immunization Need for other specified prophylactic vaccination against single bacterial disease Screening for colon cancer Special screening for malignant neoplasms, colon [facility] Diagnosis Essential hypertension Unspecified essential hypertension [facility] Diagnosis Sinobronchitis- Primary Unspecified sinusitis (chronic) documented in this encounter [facility]* Diagnosis Acute maxillary sinusitis, recurrence not specified- Primary [facility] Diagnosis ED (erectile dysfunction) of organic origin- Primary Impotence of organic origin Essential hypertension Unspecified essential hypertension Eustachian tube dysfunction, bilateral Acute recurrent maxillary sinusitis Acute maxillary sinusitis [facility] Diagnosis ED (erectile dysfunction) of organic origin- Primary Impotence of organic origin [facility] Diagnosis ED (erectile dysfunction) of organic origin Impotence of organic origin [facility] Diagnosis Essential hypertension Unspecified essential hypertension ED (erectile dysfunction) of organic origin Impotence of organic origin [facility] noteNo assessment information availableWKettering Health [facility] Work Phone: Evaluation note* Diagnosis Subcutaneous mass of back [facility]* Diagnosis Primary hypertension- Primary Unspecified essential hypertension Lipoma of back Lipoma of other specified sites Hyperlipidemia, unspecified hyperlipidemia type Elevated LFTs Other abnormal blood chemistry Elevated glucose Other abnormal glucose Class 2 obesity with body mass index (BMI) of 38.0 to 38.9 in adult, unspecified obesity type, unspecified whether serious comorbidity present [facility] this [facility] Diagnosis Subcutaneous mass of back- Primary [facility]* Diagnosis Status post skin and subcutaneous tissue surgery- Primary Other postprocedural status documented in this encounter [facility]* Diagnosis Primary hypertension Unspecified essential hypertension documented [facility] this encounter [facility]* Diagnosis ED (erectile dysfunction) of organic origin Impotence of organic origin Essential hypertension Unspecified essential hypertension documented in this encounter [facility] note* Diagnosis Primary hypertension Unspecified essential hypertension documented in this encounter [facility] note* Diagnosis Primary hypertension- Primary Unspecified essential hypertension ED (erectile dysfunction) of organic origin Impotence of organic origin Screening for depression Encounter for screening examination for other mental health and behavioral disorders Screening for prostate cancer Special screening for malignant neoplasm of prostate Hyperlipidemia, unspecified hyperlipidemia type Elevated glucose Other abnormal glucose documented in this encounter [facility] note* Diagnosis Bilateral hip pain Pain in joint, pelvic region and thigh Cervical radiculopathy Brachial neuritis or radiculitis nos documented in this encounter [facility] note* Diagnosis Wellness examination- Primary Primary hypertension Unspecified essential hypertension ED (erectile dysfunction) of organic origin Impotence of organic origin Hyperlipidemia, unspecified hyperlipidemia type Elevated glucose Other abnormal glucose Screening for colon cancer Special screening for malignant neoplasms, colon documented in this encounter [facility] for referral (narrative)* Diagnostic Procedure Only (Routine) - Closed Specialty Diagnoses / Procedures Referred By Ginna cooper Referred To Contact XR IMAGING Diagnoses Cervical radiculopathy Procedures XR CERV OTHER 4V AP/LAT/OBL RADEX SPINE CERVICAL 4 OR 5 VIEWS Lui Richards APRN.[employer] [address] [place] [address] Xr Imaging Referral ID Status Reason Start Date Expiration Date V isits Requested Visits Authorized [id number] Closed Auto-Generate d Referral 09/24/2021 10/24/2022 1 1 * Diagnostic Procedure Only (Routine) - Closed Specialty Diagnoses / Procedures Referred By Ginna cooper Referred To Contact XR IMAGING Diagnoses Bilateral hip pain Procedures XR HIP BILATERAL 5V PEL/AP/LAT EACH HIP RADEX HIPS BILATERAL WITH PELVIS MINIMUM 5 VIEWS Lui Richards APRN.CNP [address] [place] [address] Xr Imaging Referral ID Status Reason Start Date Expiration Date V isits Requested Visits Authorized [id number] Closed Auto-Generate d Referral 09/24/2021 10/24/2022 1 1 [facility] for referral (narrative)* Diagnostic Procedure Only (Routine) - Closed Specialty Diagnoses / Procedures Referred By Contac t Referred To Contact US IMAGING Diagnoses Subcutaneous mass of back Procedures US CHEST WALL/SOFT TISSUE US CHEST REAL TIME W/IMAGE DOCUMENTATION Frida Conner PA-C [address] [place] [address] [place] [address] Referral ID Status Reason Start Date Expiration Date V isits Requested Visits Authorized [id number] Closed Auto-Generate d Referral 03/20/2023 04/11/2024 1 1 [facility] for referral (narrative)* Diagnostic Procedure Only (Routine) - Closed Specialty Diagnoses / Procedures Referred By Contac t Referred To Contact XR IMAGING Diagnoses Cervical radiculopathy Procedures XR CERV OTHER 4V AP/LAT/OBL RADEX SPINE CERVICAL 4 OR 5 VIEWS Lui Richards APRN.[employer] [address] [place] [address] [place] [address] Referral ID Status Reason Start Date Expiration Date V isits Requested Visits Authorized [id number] Closed Auto-Generate d Referral 09/24/2021 10/24/2022 1 1 * Diagnostic Procedure Only (Routine) - Closed Specialty Diagnoses / Procedures Referred By Contac t Referred To Contact XR IMAGING Diagnoses Bilateral hip pain Procedures XR HIP BILATERAL 5V PEL/AP/LAT EACH HIP RADEX HIPS BILATERAL WITH PELVIS MINIMUM 5 VIEWS Lui Richards APRN.[employer] [address] [place] [address] [place] [address] Referral ID Status Reason Start Date Expiration Date V isits Requested Visits Authorized [id number] Closed Auto-Generate d Referral 09/24/2021 10/24/2022 1 1 [facility] for visit Narrative* Diagnostic Procedure Only (Routine) - Closed Specialty Diagnoses / Procedures Referred By Contac t Referred To Contact XR IMAGING Diagnoses Cervical radiculopathy Procedures XR CERV OTHER 4V AP/LAT/OBL RADEX SPINE CERVICAL 4 OR 5 VIEWS Lui Richards APRN.[employer] [address] [place] [address] [place] [address] Referral ID Status Reason Start Date Expiration Date V isits Requested Visits Authorized [id number] Closed Auto-Generate d Referral 09/24/2021 10/24/2022 1 1 [facility] Summary Purpose Family History No Family History Records FoundNo Family History Records FoundNo Family History Records Found Advance Directives Advance Directive Response Recorded Date/ Time Living Will No March 06 7:31pm Power of Roll Out Manager No March 06 024 7:31pm Reason for Referral Specialty Diagnoses / Procedures Referred By Contac t Referred To Contact Ent - Otolaryngology Diagnoses Eustachian tube dysfunction, bilateral Acute recurrent maxillary sinusitis Procedures CONSULT TO ENT OFFICE/OUTPATIENT [facility] 60-74 MINUTES Lui Richards APRN.[employer] [address] [place] [address] Referral ID Status Reason Start Date Expiration Date Visits Requested Visits Authorized [id number] Pending Review PCP Requested Referral 05/23/2022 05/23/2023 1 1 Specialty Diagnoses / Procedures Referred By Contac t Referred To Contact Urology Diagnoses ED (erectile dysfunction) of organic origin Procedures CONSULT TO UROLOGY OFFICE/OUTPATIENT [facility] MDM 60-74 MINUTES Lui Richards APRN.[employer] [address] [place] [address] Referral ID Status Reason Start Date Expiration Date Visits Requested Visits Authorized [id number] Pending Review PCP Requested Referral 05/23/2022 05/23/2023 1 1 Chief Complaint and Reason for Visit Chief Complaint CHEST PAIN Additional Source Comments (unrecognized sect ion and content) No Status Records FoundNo Status Records FoundNo Status Records Found INFORMATION SOURCE (unrecogn ized section and content) DATE CREATED AUTHOR 04/22/2021 [facility] DATE CREATED AUTHOR AUTHOR'S ORGANIZ ATION 04/28/2023 [facility] DATE CREATED AUTHOR AUTHOR'S ORGANIZ ATION 04/21/2024 [facility] Source Comments (unrecognize d section and content) In the event this informatio n is protected by the Federal Confidentiality of Alcohol and Drug Abuse Patient Records regulations: The Federal rules restrict any use of the information to criminally investigate or prosecute any alcohol or drug abuse patient.[facility] the event this information is protected by the Federal Confidentiality of Alcohol and Drug Abuse Patient Records regulations: The Federal rules restrict any use of the information to criminally investigate or prosecute any alcohol or drug abuse patient.[facility] the event this information is protected by the Federal Confidentiality of Alcohol and Drug Abuse Patient Records regulations: The Federal rules restrict any use of the information to criminally investigate or prosecute any alcohol or drug abuse patient.[facility] the event this information is protected by the Federal Confidentiality of Alcohol and Drug Abuse Patient Records regulations: The Federal rules restrict any use of the information to criminally investigate or prosecute any alcohol or drug abuse patient.[facility] the event this information is protected by the Federal Confidentiality of Alcohol and Drug Abuse Patient Records regulations: The Federal rules restrict any use of the information to criminally investigate or prosecute any alcohol or drug abuse patient.[facility] the event this information is protected by the Federal Confidentiality of Alcohol and Drug Abuse Patient Records regulations: The Federal rules restrict any use of the information to criminally investigate or prosecute any alcohol or drug abuse patient.[facility] the event this information is protected by the Federal Confidentiality of Alcohol and Drug Abuse Patient Records regulations: The Federal rules restrict any use of the information to criminally investigate or prosecute any alcohol or drug abuse patient.[facility] the event this information is protected by the Federal Confidentiality of Alcohol and Drug Abuse Patient Records regulations: The Federal rules restrict any use of the information to criminally investigate or prosecute any alcohol or drug abuse patient.[facility] the event this information is protected by the Federal Confidentiality of Alcohol and Drug Abuse Patient Records regulations: The Federal rules restrict any use of the information to criminally investigate or prosecute any alcohol or drug abuse patient.[facility] the event this information is protected by the Federal Confidentiality of Alcohol and Drug Abuse Patient Records regulations: The Federal rules restrict any use of the information to criminally investigate or prosecute any alcohol or drug abuse patient.[facility] the event this information is protected by the Federal Confidentiality of Alcohol and Drug Abuse Patient Records regulations: The Federal rules restrict any use of the information to criminally investigate or prosecute any alcohol or drug abuse patient.[facility] the event this information is protected by the Federal Confidentiality of Alcohol and Drug Abuse Patient Records regulations: The Federal rules restrict any use of the information to criminally investigate or prosecute any alcohol or drug abuse patient.[facility] the event this information is protected by the Federal Confidentiality of Alcohol and Drug Abuse Patient Records regulations: The Federal rules restrict any use of the information to criminally investigate or prosecute any alcohol or drug abuse patient.[facility] the event this information is protected by the Federal Confidentiality of Alcohol and Drug Abuse Patient Records regulations: The Federal rules restrict any use of the information to criminally investigate or prosecute any alcohol or drug abuse patient.[facility] the event this information is protected by the Federal Confidentiality of Alcohol and Drug Abuse Patient Records regulations: The Federal rules restrict any use of the information to criminally investigate or prosecute any alcohol or drug abuse patient.[facility] the event this information is protected by the Federal Confidentiality of Alcohol and Drug Abuse Patient Records regulations: The Federal rules restrict any use of the information to criminally investigate or prosecute any alcohol or drug abuse patient.[facility] the event this information is protected by the Federal Confidentiality of Alcohol and Drug Abuse Patient Records regulations: The Federal rules restrict any use of the information to criminally investigate or prosecute any alcohol or drug abuse patient.[facility] the event this information is protected by the Federal Confidentiality of Alcohol and Drug Abuse Patient Records regulations: The Federal rules restrict any use of the information to criminally investigate or prosecute any alcohol or drug abuse patient.[facility] the event this information is protected by the Federal Confidentiality of Alcohol and Drug Abuse Patient Records regulations: The Federal rules restrict any use of the information to criminally investigate or prosecute any alcohol or drug abuse patient.[facility] the event this information is protected by the Federal Confidentiality of Alcohol and Drug Abuse Patient Records regulations: The Federal rules restrict any use of the information to criminally investigate or prosecute any alcohol or drug abuse patient.[facility] the event this information is protected by the Federal Confidentiality of Alcohol and Drug Abuse Patient Records regulations: The Federal rules restrict any use of the information to criminally investigate or prosecute any alcohol or drug abuse patient.[facility] the event this information is protected by the Federal Confidentiality of Alcohol and Drug Abuse Patient Records regulations: The Federal rules restrict any use of the information to criminally investigate or prosecute any alcohol or drug abuse patient.[facility] the event this information is protected by the Federal Confidentiality of Alcohol and Drug Abuse Patient Records regulations: The Federal rules restrict any use of the information to criminally investigate or prosecute any alcohol or drug abuse patient.[facility] the event this information is protected by the Federal Confidentiality of Alcohol and Drug Abuse Patient Records regulations: The Federal rules restrict any use of the information to criminally investigate or prosecute any alcohol or drug abuse patient.[facility] the event this information is protected by the Federal Confidentiality of Alcohol and Drug Abuse Patient Records regulations: The Federal rules restrict any use of the information to criminally investigate or prosecute any alcohol or drug abuse patient.[facility] the event this information is protected by the Federal Confidentiality of Alcohol and Drug Abuse Patient Records regulations: The Federal rules restrict any use of the information to criminally investigate or prosecute any alcohol or drug abuse patient.[facility] the event this information is protected by the Federal Confidentiality of Alcohol and Drug Abuse Patient Records regulations: The Federal rules restrict any use of the information to criminally investigate or prosecute any alcohol or drug abuse patient.[facility] Reason for Visit (unrecogniz ed section and content) Reason Comments Physical Reason Comments Follow Up Reason Onset Date [...] organic origin Procedures CONSULT TO UROLOGY OFFICE/OUTPATIENT [facility] MDM 60-74 MINUTES Lui Richards, SAL.[employer]IVER [address] [place] [address] Referral ID Status Reason Start Date Expiration Date Visits Requested Visits Authorized [id number] Pending Review PCP Requested Referral 05/23/2022 05/23/2023 1 1 Reason Onset Date Comments Refill Request 11/19/2022 Reason Comments Radiology US Specialty Diagnoses / Procedures Referred By Ginna cooper Referred To Contact US IMAGING Diagnoses Subcutaneous mass of back Procedures US CHEST WALL/SOFT TISSUE US CHEST REAL TIME W/IMAGE DOCUMENTATION Frida Conner PA-C [address] [facility] [place] [address] [place] [address] Referral ID Status Reason Start Date Expiration Date V isits Requested Visits Authorized [id number] Closed Auto-Generate d Referral 03/20/2023 04/11/2024 1 1 Reason Comments Follow Up ER F/U Reason Comments Consult 7 cm lump of left sh oulder Reason Comments Post Op Follow Up 04/21/23 excision of left upper back mass- [facility] Reason Comments Refill Request Reason Onset Date Comments Refill Request 07/25/2023 Reason Comments Follow Up 6 month Reason Comments 04/21/2023 EXC SUB Q LESION LEFT UPPER BA CK MOSES Reason Comments Results Reason Comments Yearly Exam Care Teams (unrecognized sec tion and content) Speed Belt Sander Tender Relationship Specialty Start Date End Date Lukasz Vickers MD [address] [facility] [place] [address] PCP - General Family Practice 02/26/15 Speed Belt Sander Tender Relationship Specialty Start Date End Date Lukasz Vickers MD [address] [facility] [place] [address] PCP - General Family Medicine 02/26/15 Speed Belt Sander Tender Relationship Specialty Start Date End Date Lukasz Vickers MD [address] [facility] [place] [address] PCP - General Family Medicine 02/26/15 Speed Belt Sander Tender Relationship Specialty Start Date End Date Lukasz Vickers MD [address] [facility] [place] [address] PCP - General Family Medicine 02/26/15 Speed Belt Sander Tender Relationship Specialty Start Date End Date Lukasz Vickers MD [address] [facility] [place] [address] PCP - General Family Medicine 02/26/15 Speed Belt Sander Tender Relationship Specialty Start Date End Date Lukasz Vickers MD [address] [facility] [place] [address] PCP - General Family Medicine 02/26/15 Speed Belt Sander Tender Relationship Specialty Start Date End Date Lukasz Vickers MD [address] [facility] [place] [address] PCP - General Family Medicine 02/26/15 Speed Belt Sander Tender Relationship Specialty Start Date End Date Lukasz Vickers MD [address] [facility] [place] [address] PCP - General Family Medicine 02/26/15 Team Status: Active Member Role Status Dates Dr. Lukasz Vickers MD Family Provider Active Dr. Lukasz Vickers MD Primary Care Provider Active Team Status: Inactive Member Role Status Dates Dr. Lukasz Vickers MD Primary Care Provider Active Dr. Abdias Bartholomew DO Emergency Provider Active [employer] Belt Sander Tender Relationship Specialty Start Date End Date Lukasz Vickers MD [address] [facility] [place] [address] PCP - General Family Medicine 02/26/15 Speed Belt Sander Tender Relationship Specialty Start Date End Date Lukasz Vickers MD [address] [place] [address] PCP - General Family Medicine 02/26/15 Speed Belt Sander Tender Relationship Specialty Start Date End Date Lukasz Vickers MD [address] [facility] [place] [address] PCP - General Family Medicine 02/26/15 Speed Belt Sander Tender Relationship Specialty Start Date End Date Lukasz Vickers MD [address] [facility] [place] [address] PCP - General Family Medicine 02/26/15 Speed Belt Sander Tender Relationship Specialty Start Date End Date Lukasz Vickers MD [address] [facility] [place] [address] PCP - General Family Medicine 02/26/15 Speed Belt Sander Tender Relationship Specialty Start Date End Date Lukasz Vickers MD [address] [facility] [place] [address] PCP - General Family Medicine 02/26/15 Speed Belt Sander Tender Relationship Specialty Start Date End Date Lukasz Vickers MD [address] [facility] [place] [address] PCP - General Family Medicine 02/26/15 Speed Belt Sander Tender Relationship Specialty Start Date End Date Lukasz Vickers MD [address] [facility] [place] [address] PCP - General Family Medicine 02/26/15 Speed Belt Sander Tender Relationship Specialty Start Date End Date Lukasz Vickers MD [address] [facility] [place] [address] PCP - General Family Medicine 02/26/15 Speed Belt Sander Tender Relationship Specialty Start Date End Date Lukasz Vickers MD [address] [facility] [place] [address] PCP - General Family Medicine 02/26/15 Speed Belt Sander Tender Relationship Specialty Start Date End Date Lukasz Vickers MD [address] [facility] [place] [address] PCP - General Family Medicine 02/26/15 Speed Belt Sander Tender Relationship Specialty Start Date End Date Lukasz Vickers MD [address] [facility] [place] [address] PCP - General Family Medicine 02/26/15 Speed Belt Sander Tender Relationship Specialty Start Date End Date Lukasz Vickers MD [address] [facility] [place] [address] PCP - General Family Medicine 02/26/15 Marilee Becerra APRN.CNP [address] [facility] [place] [address] [employer] Family Medicine 02/04/24 Lui Richards APRN.PUBLIC TRANSIT TROLLEY DRIVER [address] [place], [place] [address] [facility] 02/13/24 Speed Belt Sander Tender Relationship Specialty Start Date End Date Lukasz Vickers MD [address] [place], [place] [address] PCP - General Family Medicine 02/26/15 Marilee Becerra APRN.PUBLIC TRANSIT TROLLEY DRIVER [address] [place] [address] [facility] 02/04/24 Lui Richards APRN.PUBLIC TRANSIT TROLLEY DRIVER [address] [place] [address] [facility] 02/13/24 Speed Belt Sander Tender Relationship Specialty Start Date End Date Lukasz Vickers MD [address] [place] [address] PCP - General Family Medicine 02/26/15 Marilee Becerra APRN.PUBLIC TRANSIT TROLLEY DRIVER [address] [place] [address] [facility] 02/04/24 07/10/24 Lui Richards APRN.PUBLIC TRANSIT TROLLEY DRIVER [address] [place] [address] [facility] 02/13/24 Goals (unrecognized section and content) Goals may be documented in a n alternate section FOR RECORDS PERTAINING TO PATIENTS WHO ARE [...] BE BASED ON THE PRIMARY CLINICAL RECORDS. [facility] provides no warranty or guarantee of the accuracy or completeness of information in this document.
[2024-11-14 21:25] VITALS: BP 119/92; PULSE 96; RESP 25; O2SAT 96
[2024-11-14 21:31] LABS: D-Dimer Quantitative (DVT/PE) < 0.27 FEU/ug/m (0.27-0.49)
[2024-11-14 22:00] VITALS: BP 123/84; PULSE 89; RESP 18; O2SAT 97
[2024-11-14 23:00] VITALS: BP 144/104; PULSE 86; RESP 16; O2SAT 98
[2024-11-14 23:23] LABS: Troponin T High Sens 2 HR < 6 ng/L (<=22)
[2024-11-14 23:30] VITALS: BP 127/96; PULSE 86; RESP 16; TEMP 36.2; O2SAT 99
== END 2024-11-14 23:30 | disposition home or self-care (01) ==
PROVIDERS: Emergency Provider Emergency Medicine; PCP Family Medicine; Visit Provider Emergency Medicine
DX: R07.9 Chest pain, unspecified (principal); R19.7 Diarrhea, unspecified; R11.0 Nausea; R06.00 Dyspnea, unspecified; I10 Essential (primary) hypertension
CPT/HCPCS: 71046; 80048; 84484; 85025; 85379; 93005; 99284; A4216